=== PATIENT | male | born 1965 | race Caucasian/White ===

== ENCOUNTER 2016-12-17 12:30 | Inpatient (IN) ==
[2016-12-17] MEDS ORDERED: NS 1,000 ML IV ONE ×4 (12:36→18:32)
--- NOTE | 2016-12-17 12:49 | PROVIDER DOCUMENTATION ---
HPI-General Adult - General Chief Complaint: High Blood Sugar Stated Complaint: HIGH BLOOD SUGAR Time Seen by Provider: 12/17/16 12:33 Source: patient Allergies/Adverse Reactions: Patient Allergies Allergy/AdvReac Type Severity Reaction Status Date / Time No Known Allergies Allergy Verified 12/17/16 12:38 Home Medications: Home Medication List Medication Instructions Recorded Confirmed Last Taken Type Insulin Aspart [Novolog Flexpen] 10 unit SQ TID PC 11/05/15 12/17/16 07/18/16 History Tramadol [Ultram] 50 mg PO Q8HR #20 tablet 11/05/15 12/17/16 07/17/16 Rx Amoxicillin/Potassium Clav 1 each PO BID #12 tablet 07/20/16 12/17/16 Unknown Rx [Augmentin 875-125 Tablet] Insulin Glargine,Hum.rec.anlog 35 unit SQ DAILY #1 insuln.pen 07/20/16 12/17/16 Unknown Rx [Lantus Solostar] Metformin [Glucophage] 500 mg PO 4XDAY 12/17/16 12/17/16 Unknown History - History of Present Illness -Gen Adult Nature of Presenting Problems: CC: "I just feel weird". pt presents complaining of hyperglycemia. Reportedly he took his glucose this morning and it was in the 300s however it read high later on in the day. He endorses good insulin compliance. He denies cough, headache, chest pain, dyspnea, back pain, dysuria, fever. Location of Pain/Injury: reports: none Quality of Pain: reports: none Onset/Duration: reports: 24 hours ago Timing: reports: still present Context/Activities at Onset: reports: none Modifying Factors: improves with: nothing Associated Symptoms: reports: denies symptoms Similar Symptoms Previously?: No Recently seen or treated by another doctor?: No Review of Systems - Adult - REVIEW OF SYSTEMS - ADULT Constitutional: reports: majo. denies: chills, fever Eyes: reports: no symptoms reported. denies: decreased vision, blurred vision Ears, Nose, Mouth & Throat: reports: no symptoms reported. denies: ear pain, epistaxis Cardiovascular: reports: no symptoms reported. denies: chest pain, heart murmur Respiratory: reports: no symptoms reported. denies: cough Gastrointestinal: reports: no symptoms reported Genitourinary: reports: no symptoms reported Musculoskeletal: reports: no symptoms reported Integumentary: reports: no symptoms reported Neurological: reports: no symptoms reported. denies: ataxia, loss of balance Psychiatric: reports: no symptoms reported Endocrine: reports: no symptoms reported. denies: change in skin pigment, cold intolerance Hematologic/Lymphatic: reports: no symptoms reported. denies: blood clots Allergic/Immunologic: reports: no symptoms reported. denies: urticaria All Other Systems: Reviewed and Negative Past History - Adult - PAST MEDICAL HISTORY-ADULT Review of Records: reports: Old Records Reviewed, Nursing Assessment Review, Medications Reviewed, Social history reviewed & non-contributory. Major Childhood Illnesses: reports: denies history Cardiovascular: reports: denies history Respiratory: reports: denies history Gastrointestinal: reports: denies history Obstetrical/Gynecological: reports: denies history Genitourinary: reports: denies history Musculoskeletal: reports: chronic pain Neurological: reports: denies history Psychiatric: reports: anxiety Endocrine/Immune: reports: Diabetes Other Conditions: reports: denies history - PRIOR SURGERIES/PROCEDURES Surgical/Procedure History: reports: other (prostate) - IMMUNIZATION STATUS Childhood Immunizations: See Nurse Assessment Flu Vaccine: See Nurse Assessment - FAMILY HISTORY Family History: reviewed, not pertinent Physical Exam-General - PHYSICAL EXAM-ADULT Initial Vital Signs Reviewed: Yes - CONSTITUTIONAL General Appearance: appears well, alert, no apparent distress - EYES Eyes: PERRL/EOMI, anisocoria - HEAD, EARS, NOSE, MOUTH & THROAT HENMT: normocephalic/atraumatic, moist mucous membranes, normal ENT inspection - NECK Neck: non-tender, full range of motion, supple - RESPIRATORY Respiratory: chest non-tender, lungs clear, normal breath sounds - CARDIOVASCULAR Cardiovascular: normal peripheral pulses, regular rate, rhythm - GASTROINTESTINAL (ABDOMEN) Abdominal Exam: normal bowel sounds, non tender, soft, no organomegaly - LYMPHATIC Lymphatic: no adenopathy, axilla node tender - MUSCULOSKELETAL Back Exam: normal inspection, no CVA tenderness, no vertebral tenderness Extremity: normal range of motion, non-tender - SKIN Integumentary: normal color, normal turgor, warm/dry - NEUROLOGIC Neurologic: 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, grossly normal, no motor/sensory deficits - PSYCHIATRIC Psych/Mental Status: normal mood/affect, normal thought content, oriented x 3 Progress - PLAN OF CARE/RESULTS Progress/Plan/Lab Results: Vital Signs - 8 hr 12/17/16 12:32 Temperature 98.0 F Pulse Rate 81 Respiratory Rate 24 Blood Pressure 126/068 Orders Category Date Time Status Cardiac Monitoring DIRECTED Care 12/17/16 12:37 Active Saline Loc NOW Care 12/17/16 12:37 Active ABG [RESP] Routine Lab 12/17/16 12:47 Ordered CBC WITH ELECTRONIC DIFF [HEME] Stat Lab 12/17/16 12:37 Ordered CK PROFILE [SP CHEM] Stat Lab 12/17/16 12:37 Ordered COMPREHENSIVE METABOLIC PANEL [CHEM] Stat Lab 12/17/16 12:37 Ordered MAGNESIUM [CHEM] Stat Lab 12/17/16 12:37 Ordered PROTIME WITH INR PL [COAG] Stat Lab 12/17/16 12:[address] [COAG] Stat Lab 12/17/16 12:37 Ordered TROPONIN T Stat Lab 12/17/16 12:37 Ordered UA NIMS W/REFLEX CULT [URINALYSIS] Stat Lab 12/17/16 12:36 Uncollected 0.9% Sodium Chloride Inj [Ns] 1,000 ml Med 12/17/16 12:36 Active IV 999 mls/hr EKG [EKG] Stat Ther 12/17/16 12:37 Ordered Result Diagrams: 12/17/16 12:55 12/17/16 12:55 - XRAY 1 XRAY Study: Chest Impression: Normal, See EMR Report - CONSULTS/PCP/HOSPITALIST Notification #1 *Consult/PCP/Hospitalist*: viktor Time Discussed: 15:15 Consult Disposition: Admit Departure - Departure Date of Disposition Decision: 12/17/16 Time of Disposition Decision: 15:05 DIAGNOSIS: Hyperglycemia, Hypernatremia UTI (urinary tract infection) Qualifiers: Urinary tract infection type: site unspecified Hematuria presence: with hematuria Qualified Code(s): N39.0 - Urinary tract infection, site not specified Disposition: ADMITTED INPATIENT 09 Certified Medical Emergency: Emergent Condition: Fair Referrals and Follow-Ups: None,PCP [Primary Care Provider] - - Critical Care Note This patient required my direct & personal management of CC.: Yes Total Time (mins): 30 Critical Care Statement: This patient required my direct personal management to treat or rule out processes, the absence of which, could potentiallly result in sudden, clinically significant life or limb threatening deterioration. Attestation - Physician/ PAULA Attestation Patient care was provided by Advanced Practice Provider:: Yes Advanced Practice Provider:: David Agustin Advanced Practice Provider documentation review:: The Mid-level provider documentation, treatment plan and medical decision making was reviewed by the physician who agrees with all treatment and medical decision making by the MLP.
[2016-12-17 13:04] LABS: BLOOD TYPE ARTERIAL; DRAW SITE R BRACHIAL; METHB 1.4 % (0.0-1.5); O2(CT) 13.5 mL/dL (15.0-23.0); PCO2(98.6) 25 mmHg (35-45); PO2(98.6) 83 mmHg (60-100); SAMPLE BLOOD; SAO2 98.5 % (95.0-100.0); THB 10.1 g/dL (11.5-17.4); pH(98.6) 7.42 (7.35-7.45)
[2016-12-17 13:05] LABS: MANUAL DIFF NEEDED? NO
[2016-12-17 13:06] LABS: ALLEN TEST NO; MODALITY ROOM AIR
[2016-12-17 13:10] LABS: BASO% 0.5 % (0.0-0.8); EOS# 0.01 X1000 (0.0-0.7); EOS% 0.2 % (0.0-10.0); HEMATOCRIT 31.6 % (42.0-52.0); HEMOGLOBIN 9.4 g/dL (14.0-18.0); IMM GRAN# 0.02 X1000 (0.0-0.04); IMM GRAN% 0.4 % (0.0-0.5); LYMPH# 0.41 X1000 (1.2-3.4); LYMPH% 7.5 % (20.5-51.1); MCH 26.9 PG (27-31); MCHC 29.7 g/dL (33-37); MCV 90.5 FL (81-99); MONO# 0.38 X1000 (0.11-0.59); MPV 9.7 FL (7.4-10.4); NEUT% 84.4 % (42.2-75.2); PLT 340 X1000 (130-400); RBC 3.49 XMIL (4.7-6.1)
[2016-12-17 13:40] LABS: INR 1.11 (0.86-1.15); PROTIME 14.6 Seconds (12.1-15.5)
[2016-12-17 13:41] LABS: PTT PL 35.5 Seconds (22.6-43.9)
[2016-12-17 13:54] LABS: BILIRUBIN URINE NEGATIVE (NEGATIVE); BLOOD URINE 4+ (NEGATIVE); COLOR YELLOW; LEUKOCYTES URINE 2+ (NEGATIVE); NITRITE URINE NEGATIVE (NEGATIVE); PH URINE 6.5; PROTEIN URINE 1+(30 mg/dL) mg/dL (NEGATIVE); UROBILINOGEN URINE NORMAL
[2016-12-17 14:20] LABS: URINE WBC TNTC /HPF (<10)
[2016-12-17 14:21] LABS: URINE CAST NONE SEEN /LPF; URINE CRYSTAL NONE SEEN /HPF; URINE CULTURE PL NEEDED? YES; URINE EPITHELIAL CELLS <10 /HPF (<10); URINE SOURCE CLEAN CATCH
[2016-12-17 14:25] LABS: AGAP 18; BUN 44 mg/dL (8-22); CHLORIDE 72 mmol/L (98-107); COSMO 280; POTASSIUM 5.8 mmol/L (3.5-5.1); TCO2 13 mmol/L (25-35)
[2016-12-17 14:26] LABS: ALBUMIN 3.2 g/dL (3.5-5.0); ALKALINE PHOSPHATASE 101 U/L (32-122); CK PROFILE 51 U/L (24-204); GOT 9 U/L (10-34); GPT 6 U/L (10-44); TOTAL PROTEIN 7.2 g/dL (6.3-8.3)
[2016-12-17 14:28] LABS: SODIUM 103 mmol/L (136-145)
[2016-12-17] MEDS ORDERED: ROCEPHIN 1 GM/NS 1 GM/50 ML IVPB IV ONE (14:36)
[2016-12-17] MEDS ORDERED: HUMULIN R (PARKWAY) IV ONE (14:37)
--- NOTE | 2016-12-17 14:40 | EKG Report ---
Test Performed on : 12/17/2016 12:56:12 PM Test Reason : CHEST PAIN Blood Pressure : / mmHG Vent. Rate : 073 BPM Atrial Rate : 073 BPM P-R Int : 160 ms QRS Dur : 078 ms QT Int : 402 ms P-R-T Axes : -13 -01 037 degrees QTc Int : 442 ms Normal sinus rhythm. Normal ECG When compared with ECG of 18-JUL-2016 20:31, Nonspecific T wave abnormality no longer evident in Lateral leads Unconfirmed Result
[2016-12-17] MEDS ORDERED: HUMULIN R (PARKWAY) 100 UNITS in NS 100 ML IV SCH (14:45)
--- NOTE | 2016-12-17 14:48 | Diag Imaging Result Doc PS360 ---
EXAM: CHEST-2 VIEWS HISTORY: weakness TECHNIQUE: COMPARISON: 10/06/2010 FINDINGS: The lungs are well expanded. The heart is not enlarged. The vessels are not distended. There are no infiltrates. No pleural effusions. IMPRESSION: No acute abnormality although the patient may have emphysema. Electronically signed by Davy Suarez 12/17/2016 2:46 PM
[2016-12-17 15:47] LABS: CLARITY SLIGHTLY CLOUDY (CLEAR)
--- NOTE | 2016-12-17 16:05 | ED EKG INTERP ---
This chart was entered by Donna Silveira Scribe, acting as scribe for Amy Fernández MD. EKG Interpretation - EKG Time of EKG reading by physician:: 12:56 EKG Read and Signed by:: Amy Fernández EKG Interpretation (*Must complete 3 of following elements*): Normal Rate: 73 Rhythm: NORMALSINUS RHYTHM Comments: NORMAL ECG This chart was documented by the indicated scribe, (Donna Silveira Scribe) and accurately reflects the services I performed and decisions made by me, Amy Fernández MD, as attested by the provider's signature.
[2016-12-17 17:42] LABS: CALCIUM 9.3 mg/dL (8.8-10.2); MAGNESIUM 2.6 mg/dL (1.5-2.7); POTASSIUM 4.3 mmol/L (3.5-5.1)
[2016-12-17] MEDS ORDERED: MISC. PHARMACY COMMUNICATION SCH (18:00)
[2016-12-17 19:16] LABS: HEMOGLOBIN A1C > 8.8 % (4.8-6.0)
[2016-12-17 19:17] LABS: EST AVG GLUCOSE > 205 mg/dL
[2016-12-17 19:35] LABS: CALCIUM 9.1 mg/dL (8.8-10.2); POTASSIUM 3.8 mmol/L (3.5-5.1)
[2016-12-17] MEDS: NS 1,000 ML IV SCH (20:00)
[2016-12-17 21:18] LABS: CALCIUM 8.7 mg/dL (8.8-10.2); MAGNESIUM 2.2 mg/dL (1.5-2.7); POTASSIUM 4.1 mmol/L (3.5-5.1)
[2016-12-18 03:23] LABS: CALCIUM 8.7 mg/dL (8.8-10.2); MAGNESIUM 2.1 mg/dL (1.5-2.7); POTASSIUM 4.2 mmol/L (3.5-5.1)
[2016-12-18] MEDS: NS 1,000 ML IV SCH ×4 (04:00→21:25)
[2016-12-18 05:49] LABS: CALCIUM 8.7 mg/dL (8.8-10.2); POTASSIUM 4.6 mmol/L (3.5-5.1)
--- NOTE | 2016-12-18 09:12 | PROGRESS NOTE ---
DATE: 12/18/2016 SUBJECTIVE: Patient notes that he is feeling much better. He denies any chest pain or palpitations. Denies any fevers, chills. Denies any GI or issues. States that he is ready to start eating. Notes that he does not typically take care of himself when he is driving. PHYSICAL EXAMINATION: Vital Signs: Temperature 97.9, pulse 75, respiratory rate 19, BP 116/77, saturation 100% on room air. General: Patient is awake, alert, currently in no respiratory distress. Pleasant to talk with. Speech is regular. Memory is intact. He is lying in bed, watching TV. HEENT: Normocephalic, atraumatic. Neck: Supple. CV: Regular rate. Chest: Relatively clear. Abdomen: Soft. Extremities: Moves all extremities. Neurologic: No focal changes. Skin: Warm and dry. No rashes. LABS: Glucose 516. Otherwise CBC is pending. Creatinine has improved down to 1.4, bicarbonate is 20. ASSESSMENT: Hyperosmolar hyperglycemia without coma. The patient is thankfully continuing to improve. His glucose on admission was markedly elevated at greater than 1200 and has slowly come down. He actually dropped down to 387 yesterday several hours after his last insulin dose only with intravenous fluids. He is continuing to improve. At this point, he is awake, alert, oriented. We will begin tighter control of his blood sugar as he has been 500 or below for the past several hours. We will change to patterned Accu-Cheks. We will start sliding scale insulin. Currently, he is nonketotic. We will advance his diet as tolerated and hopefully home in the morning. Did discuss with patient the importance of glucose control at home. cc: Marcel Ford MD
[2016-12-18] MEDS: HUMALOG DOSE (PARKWAY) SUBQ SCH ×3 (11:02→20:11)
[2016-12-18] MEDS ORDERED: LANTUS INSULIN (PARKWAY) SUBQ ONE (13:20)
[2016-12-18] MEDS: ROCEPHIN 1 GM/NS 1 GM/50 ML IVPB IV SCH (15:35)
[2016-12-18] MEDS ORDERED: GLUCOPHAGE PO SCH (21:00)
[2016-12-18] MEDS ORDERED: LANTUS SUBQ SCH (21:00)
[2016-12-19] MEDS: NS 1,000 ML IV SCH (04:11)
[2016-12-19 06:25] LABS: HEMATOCRIT 28.7 % (42.0-52.0); HEMOGLOBIN 9.3 g/dL (14.0-18.0); MCH 26.3 PG (27-31); MCHC 32.4 g/dL (33-37); MCV 81.3 FL (81-99); MPV 9.5 FL (7.4-10.4); RBC 3.53 XMIL (4.7-6.1)
[2016-12-19] MEDS: HUMALOG DOSE (PARKWAY) SUBQ SCH ×4 (06:31→20:36)
[2016-12-19] MEDS ORDERED: LANTUS INSULIN (PARKWAY) SUBQ SCH (06:38)
[2016-12-19 06:47] LABS: AGAP 8; ALBUMIN 2.6 g/dL (3.5-5.0); ALKALINE PHOSPHATASE 84 U/L (32-122); BUN 17 mg/dL (8-22); CALCIUM 8.5 mg/dL (8.8-10.2); CHLORIDE 109 mmol/L (98-107); COSMO 274; GOT 7 U/L (10-34); GPT 5 U/L (10-44); HDL 31 mg/dL (35-55); LDL 75 mg/dL; MAGNESIUM 1.6 mg/dL (1.5-2.7); POTASSIUM 3.2 mmol/L (3.5-5.1); SODIUM 137 mmol/L (136-145); TCO2 21 mmol/L (25-35); TOTAL PROTEIN 6.4 g/dL (6.3-8.3); TRIGLYCERIDES 132 mg/dL (39-160); VLDL 26 mg/dL
[2016-12-19] MEDS: GLUCOPHAGE PO SCH ×4 (08:35→20:04)
[2016-12-19] MEDS ORDERED: ULTRAM PO PRN (08:52)
[2016-12-19] MEDS ORDERED: LANTUS SUBQ SCH (09:00)
[2016-12-19] MEDS: LANTUS INSULIN (PARKWAY) SUBQ SCH (10:54)
--- NOTE | 2016-12-19 11:03 | PROGRESS NOTE ---
DATE: 12/19/2016 SUBJECTIVE: The patient notes that he is feeling much better. He denies any chest pains or palpitations. He denies any GI or issues currently. OBJECTIVE: Vital signs: Vital signs were reviewed and are stable. General: He is awake, alert, oriented, and in no distress. Neck: Supple. CV: Regular rate. Chest: Relatively clear. Abdomen: Soft. Extremities: He moves all extremities. Neurological: No focal changes. Skin: Warm and dry. No rashes. ASSESSMENT: 1. Hyperosmolar hyperglycemia without coma, resolved. 2. Diabetes with hyperglycemia, improved. 3. Acute renal failure secondary to hyperosmolar, resolved. PLAN: We will restart the patient's home medication. We will transfer him to the floor. We allow him to eat a regular diet today and if his blood sugars stay stable we will discharge home in the a.m. cc: Marcel Ford MD
--- NOTE | 2016-12-19 15:10 | HISTORY AND PHYSICAL ---
This is a delayed dictation for 12/17/2016. CHIEF COMPLAINT: "I feel weird." HISTORY OF PRESENT ILLNESS: This is a 51-year-old gentleman with a history of insulin-dependent diabetes who presented to the emergency room stating that he felt weird and that he was having hyperglycemia. He states that his blood sugar was in the 300s on arising this morning, but it read high later in the day. Initial blood glucose in the ER was 519. That was at midnight. At noon the next day, it was greater than 1200, per lab. He was found to be in HHNK and admitted to ICU for further treatment. PAST MEDICAL HISTORY: 1. Benign prostatic hypertrophy. 2. Insulin-dependent diabetes. PAST SURGICAL HISTORY: Cystoscopy. SOCIAL HISTORY: He denies alcohol, tobacco, or illicit drug use. ALLERGIES: No known drug allergies. HOME MEDICATIONS: Humalog 100 units a.c. and at bedtime, Ultram 50 q.8 hours p.r.n., Glucophage 500 four times a day, NovoLog FlexPen 10 units 3 times a day, Lantus 35 units daily, and Augmentin b.i.d. REVIEW OF SYSTEMS: A 14-point review of systems is discussed with the patient, with pertinent positives as stated in the HPI. He denied chest pain, palpitations, shortness of breath, cough, fever, chills, nausea, vomiting, diarrhea, constipation, black or bloody vomitus , black or bloody stools, hematuria, dysuria, frequency, or urgency. PHYSICAL EXAMINATION: GENERAL: This is a 51-year-old male who is lying in the bed in no distress. VITAL SIGNS: Blood pressure is 116/77 with a heart rate of 75. Respirations are 18. Temperature is 97.9 degrees oral with room air saturations of 98% to 100%. HEENT: Head is normocephalic, atraumatic. Pupils equal, round, react to light. EOMs are intact. Sclerae anicteric. Mucous membranes are dry. NECK: Supple. Trachea midline. CARDIOVASCULAR: Regular rate and rhythm. S1 and S2 appreciated. PULMONARY: Breath sounds are clear. No increased work of breathing noted. GASTROINTESTINAL: Abdomen is soft, nontender, nondistended. Bowel sounds in all 4 quadrants. BACK: No CVAT. No spine tenderness. MUSCULOSKELETAL: Good range of motion of joints. NEUROLOGIC: He is alert and oriented x3, with cranial nerves 2-12 grossly intact. EXTREMITIES: No clubbing, cyanosis, or edema. Calves are nontender. Pulses are palpable x4. DIAGNOSTICS: Sodium is 103, potassium 5.8, BUN 44, creatinine 1.8, with a glucose greater than 1200. Total bilirubin is 1.30. WBC is 5.46, with hemoglobin 9.4 and hematocrit 31.6. He is acetone negative. ASSESSMENT: Hyperosmolar hyperglycemia without coma. PLAN: The patient will be admitted to ICU. He will be placed on an insulin drip and we will keep his blood sugar above 800 for the first 8 hours, checking blood sugars every hour. After this, for the next 10-12 hours we will not let his blood sugar get below 500 and insulin drip can be titrated for such. We will re-evaluate in the morning. He is not ketotic. We will advance diet as tolerated. Further treatments pending hospital course. Dictated by MONIE Ortez for Marcel Ford MD cc: MONIE Ortez MD [facility]
[2016-12-19] MEDS: ROCEPHIN 1 GM/NS 1 GM/50 ML IVPB IV SCH (16:30)
[2016-12-20] MEDS: HUMALOG DOSE (PARKWAY) SUBQ SCH ×4 (06:29→21:37)
[2016-12-20] MEDS: GLUCOPHAGE PO SCH ×4 (07:48→21:37)
[2016-12-20] MEDS ORDERED: LEVAQUIN PO SCH (09:30)
[2016-12-20] MEDS: LANTUS INSULIN (PARKWAY) SUBQ SCH (09:40)
[2016-12-20 20:47] VITALS: BP 141/86
--- NOTE | 2016-12-21 07:40 | DISCHARGE SUMMARY ---
ADMISSION DATE: 12/17/2016 DISCHARGE DATE: 12/20/2016 DIAGNOSES: 1. Hyperosmolar hyperglycemia without coma, resolved. 2. Diabetes with hyperglycemia, improved. 3. Acute renal failure secondary to hyperosmolarity, resolved. 4. Urinary tract infection, Enterobacter cloacae species. DIAGNOSTICS: On 12/17/2016, chest x-ray revealed no acute abnormality. HOSPITAL COURSE: Mr. Santana presented to the emergency room complaining of feeling weird. He was found to be HHNK with a blood sugar of greater than 1200 per lab. He was started on an insulin drip. Sent to ICU. We did monitor his blood sugars hourly and titrated the drip to keep his blood sugar above 800 for the 1st 8 hours. For the next 10-12 hours, we did not let his blood sugar get below 500. He did tolerate this well, getting off his insulin drip, being transitioned back over to his home medications, having blood sugars in the 200-270 range. He was noted to have an Enterobacter urinary tract infection for which he has been started on Levaquin. DISCHARGE PHYSICAL EXAMINATION: Cardiovascular: Regular rate and rhythm. S1 and S2 are appreciated. Pulmonary: Breath sounds clear with no increased work of breathing noted. Gastrointestinal: Abdomen is soft, nontender, nondistended with bowel sounds in all 4 quadrants. Neurologic: He is alert and oriented with cranial nerves 2-12 grossly intact. DISCHARGE MEDICATIONS: 1. Humalog 100 units a.c. and at bedtime. 2. Ultram 50 mg q.8 hours. 3. Glucophage 500 mg 4 times a day. 4. Lantus insulin 35 units daily. 5. Levaquin 500 mg p.o. daily for 7 days. DISCHARGE FOLLOWUP: He needs to follow up with his primary care provider, Dr. Teran, within the next week. DISCHARGE VITAL SIGNS: Blood pressure is 131/82, with a heart rate of 69, respirations are 18, temperature is 98.5 degrees oral, with a room air saturations of 99%. DISPOSITION: He is being discharged home in stable condition with family members. TIME SPENT: This is a greater than 30 minute discharge. Dictated by MONIE Ortez for Marcel Ford MD cc: MONIE Ortez MD
== END 2016-12-20 23:40 | disposition home or self-care (01) ==
LOC: P.ED 12:30 → P.EDIPHOLD 15:41 → P.ICU 16:37 → P.MEDSURG 12-19 12:36
PROVIDERS: ATTEND Family Medicine

== ENCOUNTER 2018-07-08 13:32 | Inpatient (IN) ==
[2018-07-08] MEDS ORDERED: HUMULIN R IV ONE ×3 (13:35→20:25)
[2018-07-08] MEDS ORDERED: NS 1,000 ML IV ONE ×2 (13:36→23:54)
[2018-07-08 14:10] LABS: URINE SOURCE CLEAN CATCH
[2018-07-08 14:13] LABS: BILIRUBIN URINE NEGATIVE (NEGATIVE); BLOOD URINE LARGE (NEGATIVE); COLOR ORANGE; GLUCOSE URINE >1000 mg/dL (NEGATIVE); KETONE URINE 100 mg/dL (NEGATIVE); LEUKOCYTES URINE LARGE (NEGATIVE); NITRITE URINE NEGATIVE (NEGATIVE); PH URINE 5.5; PROTEIN URINE 200 mg/dL (NEGATIVE); SP GRAVITY URINE 1.014; TURBIDITY URINE TURBID (CLEAR); UROBILINOGEN URINE NORMAL (NORMAL)
[2018-07-08 14:14] LABS: UR EPITHELIAL CELLS <10 /HPF (<10); URINE BACTERIA NEGATIVE /HPF; URINE RBC TNTC /HPF (<10); URINE WBC TNTC /HPF (<10)
[2018-07-08 14:14] LABS: BASO# 0.05 X1000 (0.0-0.2); BASO% 0.2 % (0.0-0.8); EOS# 0.01 X1000 (0.0-0.7); HEMATOCRIT 37.6 % (42.0-52.0); HEMOGLOBIN 10.7 g/dL (14.0-18.0); LYMPH# 0.79 X1000 (1.2-3.4); LYMPH% 3.2 % (20.5-51.1); MCH 27.9 PG (27-31); MCHC 28.5 g/dL (33-37); MCV 97.9 FL (81-99); MONO# 2.09 X1000 (0.11-0.59); MONO% 8.4 % (1.7-9.3); MPV 10.3 FL (7.4-10.4); NEUT# 21.95 X1000 (1.4-6.5); NEUT% 88.2 % (42.2-75.2); PLT 516 X1000 (130-400); RBC 3.84 XMIL (4.7-6.1); RDW 13.3 % (11.5-14.5); WBC 24.89 X1000 (4.8-10.8)
[2018-07-08 14:17] LABS: URINE CASTS NONE SEEN; URINE YEAST PRESENT
[2018-07-08] MEDS ORDERED: VANCOMYCIN 1 GM/NS 1 GM/250 ML IVPB IV ONE (14:20)
[2018-07-08] MEDS ORDERED: ROCEPHIN 1 GM in NS 50 ML IV ONE (14:20)
[2018-07-08] MEDS ORDERED: DIFLUCAN 400 MG/NS 400 MG/200 ML IVPB IV ONE (14:24)
[2018-07-08 14:32] LABS: UR AMPHETAMINES QUAL NONE DETECTED (NONE DETECT); UR BARBITUATES QUAL NONE DETECTED (NONE DETECT); UR BENZODIAZEPIN QUAL NONE DETECTED (NONE DETECT); UR CANNABINOIDS QUAL NONE DETECTED (NONE DETECT); UR COCAINE QUAL NONE DETECTED (NONE DETECT); UR METHADONE QUAL NONE DETECTED (NONE DETECT); UR OPIATES QUAL NONE DETECTED (NONE DETECT); UR OXYCODONE QUAL NONE DETECTED (NONE DETECT); UR PCP QUAL NONE DETECTED (NONE DETECT)
[2018-07-08 14:52] LABS: AGAP 39; ALBUMIN 3.7 g/dL (3.5-5.0); ALKALINE PHOSPHATASE 140 U/L (32-122); BUN 43 mg/dL (8-22); CHLORIDE 87 mmol/L (98-107); CK TOTAL 60 U/L (24-204); COSMO 314; CREATININE 3.3 mg/dL (0.7-1.2); ESTIMATED GFR 20; GLUCOSE 887 mg/dL (70-104); GOT 12 U/L (10-34); GPT 11 U/L (10-44); LIPASE 9 U/L (13-60); MAGNESIUM 2.4 mg/dL (1.5-2.7); SODIUM 130 mmol/L (136-145); TCO2 4 mmol/L (25-35); TOTAL BILIRUBIN < 0.15 mg/dL (0.20-1.00); TOTAL PROTEIN 7.3 g/dL (6.3-8.3)
[2018-07-08 14:56] LABS: POTASSIUM 7.4 mmol/L (3.5-5.1)
[2018-07-08 15:00] LABS: ALLEN TEST NO; BLOOD TYPE ARTERIAL; O2(CT) 15.8 mL/dL (15.0-23.0); O2HB 96.8 % (95.0-99.0); PO2(98.6) 143 mmHg (60-100); SAMPLE BLOOD; SAO2 99.5 % (95.0-100.0); THB 11.4 g/dL (11.5-17.4)
[2018-07-08] MEDS ORDERED: HUMULIN R 100 UNIT in NS 100 ML IV SCH (15:00)
[2018-07-08 15:02] LABS: HCO3-(ACT) 2.3 mmoll (20.0-26.0); MODALITY CANNULA; PCO2(98.6) 10 mmHg (35-45); pH(98.6) 6.91 (7.35-7.45)
[2018-07-08] MEDS ORDERED: KAYEXALATE PO ONE (15:03)
[2018-07-08] MEDS ORDERED: LASIX IV ONE (15:03)
[2018-07-08] MEDS ORDERED: CALCIUM CHLORIDE 1 GM in NS 100 ML IV ONE (15:03)
[2018-07-08] MEDS ORDERED: SODIUM BICARBONATE 8.4% IV PUSH ONE (15:03)
[2018-07-08 15:04] LABS: ACETONE SERUM MODERATE (NEGATIVE)
[2018-07-08] MEDS ORDERED: ALBUTEROL NEB INH ONE (15:05)
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
[2018-07-08] MEDS ORDERED: ROCEPHIN ONE (15:20)
[2018-07-08] MEDS ORDERED: KAYEXALATE ONE (15:23)
--- NOTE | 2018-07-08 15:23 | ED EKG INTERP ---
EKG Interpretation - EKG Time of EKG reading by physician:: 15:22 EKG Read and Signed by:: Luis Marques EKG Interpretation (*Must complete 3 of following elements*): Abnormal Rate: 107 Rhythm: nsr Colp: normal QRS: LVH, other (peak t waves) ME Interval: normal ST Wave: non-specific ST changes Attestation - Physician/ PAULA Attestation Patient care was provided by Advanced Practice Provider:: No The physician spent face to face time with patient:: Yes Advanced Practice Provider documentation review:: Supervising physician onsite and consulted in the evaluation and care of this patient. The physician did have a face to face encounter with the patient.
[2018-07-08] MEDS ORDERED: NS 1,000 ML IV SCH ×3 (15:30→15:53)
[2018-07-08] MEDS ORDERED: ALBUTEROL 0.5% INH CONC FOR HYPERKALEMIA ONE (15:32)
[2018-07-08] MEDS ORDERED: ALBUTEROL 0.5% INH CONC FOR HYPERKALEMIA INH ONE (15:40)
[2018-07-08] MEDS ORDERED: ZOFRAN IV PRN ×2 (15:53→17:17)
[2018-07-08] MEDS ORDERED: HUMULIN R 100 UNIT in NS 99 ML IV SCH (15:53)
[2018-07-08] MEDS ORDERED: SODIUM PHOSPHATE 30 MMOL in D5W 250 ML IV PRN ×2 (15:53→17:17)
[2018-07-08] MEDS ORDERED: POTASSIUM CHLORIDE 40 MEQ/SWI 40 MEQ/100 ML IVPB IV PRN ×2 (15:53→17:17)
[2018-07-08] MEDS ORDERED: SODIUM BICARBONATE 8.4% 100 MEQ in D5W 500 ML IV PRN ×2 (15:53→17:17)
[2018-07-08] MEDS ORDERED: TYLENOL PR PRN ×2 (15:53→17:17)
[2018-07-08] MEDS ORDERED: POTASSIUM CHLORIDE 20 MEQ/SWI 20 MEQ/100 ML IVPB IV PRN ×2 (15:53→17:17)
[2018-07-08] MEDS ORDERED: D5 NS 1,000 ML IV SCH (15:53)
[2018-07-08] MEDS ORDERED: SODIUM BICARBONATE 8.4% 50 MEQ in D5W 250 ML IV PRN ×2 (15:53→17:17)
[2018-07-08] MEDS ORDERED: POTASSIUM CHLORIDE 20% LIQUID PO PRN ×2 (15:53→17:17)
[2018-07-08] MEDS ORDERED: POTASSIUM CHLORIDE 10% LIQUID PO PRN (15:53)
[2018-07-08] MEDS ORDERED: TYLENOL PO PRN ×2 (15:53→17:17)
[2018-07-08] MEDS ORDERED: MAGNESIUM SULFATE 2 GM/S.W.I. 2 GM/50 ML IVPB IV PRN ×2 (15:53→17:17)
[2018-07-08] MEDS ORDERED: D50W SYRINGE IV PRN ×2 (15:53→17:17)
[2018-07-08] MEDS ORDERED: COMPAZINE IV PRN ×2 (15:53→17:17)
--- NOTE | 2018-07-08 15:54 | EKG Report ---
Test Performed on : 07/08/2018 3:05:39 PM Test Reason : hyperglycemia Blood Pressure : / mmHG Vent. Rate : 107 BPM Atrial Rate : 107 BPM P-R Int : 152 ms QRS Dur : 108 ms QT Int : 360 ms P-R-T Axes : 054 -29 050 degrees QTc Int : 480 ms Sinus tachycardia. Otherwise normal ECG When compared with ECG of 17-DEC-2016 12:56, QRS duration has increased Unconfirmed Result
[2018-07-08 16:25] LABS: ALLEN TEST NO; BE -28.6 mmoll (-3.0-3.0); BLOOD TYPE ARTERIAL; METHB 1.3 % (0.0-1.5); O2(CT) 13.4 mL/dL (15.0-23.0); O2HB 96.6 % (95.0-99.0); PO2(98.6) 128 mmHg (60-100); SAMPLE BLOOD; SAO2 99.5 % (95.0-100.0); THB 9.7 g/dL (11.5-17.4)
[2018-07-08 16:28] LABS: HCO3-(ACT) 2.6 mmoll (20.0-26.0); MODALITY CANNULA; PCO2(98.6) 10 mmHg (35-45); pH(98.6) 6.92 (7.35-7.45)
[2018-07-08] MEDS: NS 1,000 ML IV SCH ×4 (17:36→19:43)
[2018-07-08 18:12] LABS: HEMOGLOBIN A1C 13.2 % (4.8-6.0)
[2018-07-08] MEDS: D5 NS 1,000 ML IV SCH (18:16)
[2018-07-08 18:25] LABS: ALLEN TEST YES; BE -21.9 mmoll (-3.0-3.0); BLOOD TYPE ARTERIAL; HCO3-(ACT) 7.9 mmoll (20.0-26.0); METHB 1.1 % (0.0-1.5); O2(CT) 12.9 mL/dL (15.0-23.0); O2HB 96.8 % (95.0-99.0); PO2(98.6) 126 mmHg (60-100); SAMPLE BLOOD; SAO2 99.4 % (95.0-100.0); THB 9.3 g/dL (11.5-17.4)
[2018-07-08 18:28] LABS: PCO2(98.6) 14 mmHg (35-45); pH(98.6) 7.15 (7.35-7.45)
[2018-07-08 18:29] LABS: MODALITY ROOM AIR
[2018-07-08 19:22] LABS: AGAP 36; AMYLASE 243 U/L (20-200); BUN 46 mg/dL (8-22); CALCIUM 8.7 mg/dL (8.8-10.2); CHLORIDE 91 mmol/L (98-107); CK TOTAL 73 U/L (24-204); COSMO 323; CREATININE 3.2 mg/dL (0.7-1.2); ESTIMATED GFR 20; LIPASE 10 U/L (13-60); MAGNESIUM 2.3 mg/dL (1.5-2.7); PHOSPHORUS 8.3 mg/dL (2.7-4.5); POTASSIUM 5.1 mmol/L (3.5-5.1); SODIUM 132 mmol/L (136-145); TCO2 5 mmol/L (25-35)
[2018-07-08 19:25] LABS: GLUCOSE 930 mg/dL (70-104)
[2018-07-08 19:30] LABS: ACETONE SERUM MODERATE (NEGATIVE)
[2018-07-08] MEDS: HUMULIN R 100 UNIT in NS 99 ML IV SCH (19:43)
[2018-07-08] MEDS: PRILOSEC PO SCH (20:49)
[2018-07-08 21:37] LABS: ALLEN TEST YES; BE -13.8 mmoll (-3.0-3.0); BLOOD TYPE ARTERIAL; HCO3-(ACT) 14.1 mmoll (20.0-26.0); METHB 1.5 % (0.0-1.5); O2(CT) 14.2 mL/dL (15.0-23.0); O2HB 95.5 % (95.0-99.0); PCO2(98.6) 23 mmHg (35-45); PO2(98.6) 93 mmHg (60-100); SAMPLE BLOOD; SAO2 98.3 % (95.0-100.0); THB 10.5 g/dL (11.5-17.4); pH(98.6) 7.29 (7.35-7.45)
[2018-07-08 21:41] LABS: MODALITY ROOM AIR
[2018-07-08 23:23] LABS: CALCIUM 7.8 mg/dL (8.8-10.2); CREATININE 2.8 mg/dL (0.7-1.2); MAGNESIUM 1.9 mg/dL (1.5-2.7); PHOSPHORUS 2.2 mg/dL (2.7-4.5); POTASSIUM 3.7 mmol/L (3.5-5.1)
[2018-07-09] MEDS: HUMULIN R 100 UNIT in NS 99 ML IV SCH ×2 (00:31→15:38)
[2018-07-09] MEDS: POTASSIUM CHLORIDE 10% LIQUID PO PRN ×5 (00:43→17:38)
[2018-07-09] MEDS: ZOFRAN IV PRN (00:44)
[2018-07-09 02:29] LABS: CALCIUM 7.9 mg/dL (8.8-10.2); CREATININE 2.3 mg/dL (0.7-1.2); MAGNESIUM 1.7 mg/dL (1.5-2.7); PHOSPHORUS 1.3 mg/dL (2.7-4.5); POTASSIUM 3.8 mmol/L (3.5-5.1)
[2018-07-09 04:03] LABS: ALLEN TEST YES; BE -6.7 mmoll (-3.0-3.0); BLOOD TYPE ARTERIAL; HCO3-(ACT) 19.7 mmoll (20.0-26.0); METHB 0.9 % (0.0-1.5); O2(CT) 12.4 mL/dL (15.0-23.0); O2HB 96.4 % (95.0-99.0); PCO2(98.6) 33 mmHg (35-45); PO2(98.6) 96 mmHg (60-100); SAMPLE BLOOD; SAO2 98.9 % (95.0-100.0); pH(98.6) 7.35 (7.35-7.45)
[2018-07-09 04:04] LABS: MODALITY ROOM AIR
[2018-07-09] MEDS: D5 NS 1,000 ML IV SCH ×3 (04:30→17:01)
[2018-07-09 06:20] LABS: ALLEN TEST YES; BE -7.6 mmoll (-3.0-3.0); BLOOD TYPE ARTERIAL; METHB 1.4 % (0.0-1.5); O2(CT) 13.5 mL/dL (15.0-23.0); O2HB 95.6 % (95.0-99.0); PCO2(98.6) 30 mmHg (35-45); PO2(98.6) 95 mmHg (60-100); SAMPLE BLOOD; SAO2 98.5 % (95.0-100.0); THB 9.9 g/dL (11.5-17.4); pH(98.6) 7.36 (7.35-7.45)
[2018-07-09 06:21] LABS: MODALITY ROOM AIR
[2018-07-09 07:02] LABS: BASO# 0.01 X1000 (0.0-0.2); BASO% 0.1 % (0.0-0.8); EOS# 0.04 X1000 (0.0-0.7); EOS% 0.5 % (0.0-10.0); HEMATOCRIT 24.8 % (42.0-52.0); LYMPH# 0.32 X1000 (1.2-3.4); MCH 27.1 PG (27-31); MCHC 32.3 g/dL (33-37); MCV 84.1 FL (81-99); MONO# 0.88 X1000 (0.11-0.59); MPV 9.4 FL (7.4-10.4); NEUT# 6.75 X1000 (1.4-6.5); NEUT% 84.4 % (42.2-75.2); PLT 234 X1000 (130-400); RBC 2.95 XMIL (4.7-6.1); RDW 12.1 % (11.5-14.5)
[2018-07-09 07:06] LABS: PTT 38.4 Seconds (22.3-41.8)
[2018-07-09 07:20] LABS: AGAP 12; ALB/GLOB RATIO 0.7; ALBUMIN 2.3 g/dL (3.5-5.0); ALKALINE PHOSPHATASE 84 U/L (32-122); BUN 39 mg/dL (8-22); CALCIUM 7.7 mg/dL (8.8-10.2); CHLORIDE 119 mmol/L (98-107); COSMO 309; CREATININE 2.2 mg/dL (0.7-1.2); ESTIMATED GFR 32; GLUCOSE 188 mg/dL (70-104); GOT 10 U/L (10-34); GPT 7 U/L (10-44); MAGNESIUM 1.7 mg/dL (1.5-2.7); PHOSPHORUS 2.7 mg/dL (2.7-4.5); POTASSIUM 4.3 mmol/L (3.5-5.1); SODIUM 148 mmol/L (136-145); TCO2 17 mmol/L (25-35); TOTAL BILIRUBIN < 0.15 mg/dL (0.20-1.00); TOTAL PROTEIN 5.6 g/dL (6.3-8.3)
--- NOTE | 2018-07-09 07:23 | EKG Report ---
Test Performed on : 07/09/2018 06:46:55 AM Test Reason : chest pain Blood Pressure : / mmHG Vent. Rate : 094 BPM Atrial Rate : 094 BPM P-R Int : 164 ms QRS Dur : 074 ms QT Int : 362 ms P-R-T Axes : 050 004 037 degrees QTc Int : 452 ms Normal sinus rhythm. Normal ECG When compared with ECG of 08-JUL-2018 15:05, (Unconfirmed) Questionable change in QRS duration Confirmed by Jacobo Mendoza MD ([id number]) on 07/11/2018 5:35:42 PM
[2018-07-09 07:27] LABS: FREE T4 0.95 ng/dL (0.93-1.70); TSH 1.54 uIUmL (0.27-4.20)
[2018-07-09 07:39] LABS: INR 1.24; PROTIME 16.6 Seconds (11.0-16.0)
--- NOTE | 2018-07-09 08:45 | HISTORY AND PHYSICAL ---
HISTORY OF PRESENT ILLNESS: Mr. Santana is a 52-year-old with history of diabetes mellitus type 1. He has a history of benign prostatic hypertrophy. I think he was last here on 12/22/2017 with nausea and vomiting. I think he was in diabetic ketoacidosis at that time. He presents again with 3- or 4-day history of feeling worse, nauseated. He cannot give a whole lot of history. Rapid respirations and nausea. I do not have any history of what his blood sugars were. PAST SURGICAL HISTORY: He has had a cystoscopy. PAST MEDICAL HISTORY: 1. Type 1 diabetes mellitus, insulin dependent. 2. Benign prostatic hypertrophy. SOCIAL HISTORY: No tobacco or ethanol. Denies any drugs. ALLERGIES: No known drug allergies. MEDICATION: I think he takes 70/30, 30 units in the morning and 20 at night, Neurontin 300 mg t.i.d., and regular insulin 100 units 3 times a day, but that was according old notes. I think it is 30 units 3 times a day that he was supposed to be on for regular insulin. REVIEW OF SYSTEMS: He is unable to give, but he says he has felt pretty bad for the last 3 or 4 days. Denies chest pain. Denies any bleeding from any orifice. Denies fever or chills or abdominal pain. No focal neurologic changes. FAMILY HISTORY: No reports of heart or renal or kidney disease. PHYSICAL EXAMINATION: VITAL SIGNS: Temperature 97.9 degrees, pulse 99, respirations 38, blood pressure 144/73. HEENT: Pupils are equal. NECK: No distended neck veins. CVP less than 6 cm. Neck supple. No neck pain. No cervical or supraclavicular adenopathy. LUNGS: Clear in all lung lambert. CARDIOVASCULAR: Regular rhythm and rate without murmur or S3. ABDOMEN: Soft, nontender, nondistended. SKIN: Warm and dry. VITAL SIGNS: Blood pressure was 144/73, pulse 100 respirations 38. DIAGNOSTIC STUDIES: Blood sugar was 800. White count is 24,890, hemoglobin 10 , hematocrit 37, platelet count 516,000. Electrolytes: Sodium 130, potassium 7.4, chloride 87, bicarbonate 4, BUN 43, creatinine 3.3, blood sugar was 887. Magnesium 2.4. AST is 12, ALT 11 alkaline phosphatase 140. Troponin less than 0.01. Urine toxicology: Acetone is moderate. He was negative for opiates, oxycodone, methadone, barbiturates, phencyclidine, amphetamines, benzodiazepines, and cocaine. Urine showed too numerous to count white blood cells, too numerous to count red blood cells. Blood gas: PH is 6.91, pCO2 is 10, PO2 is 143, O2 saturation 99%. This was on 28% FiO2. Hemoccult blood was positive; I am assuming that was for stool. ASSESSMENT AND PLAN: 1. Diabetic ketoacidosis. We will begin on the diabetic protocol, giving liberal fluids and insulin drip. I will follow his electrolytes closely. Note that he has hyperkalemia on presentation, and he is tachypneic from his compensatory respiratory alkalosis. We will go ahead and treat him for urinary tract infection. Urine had significant sediment. We will put him in the unit. 2. Urinary tract infection. Suspect prostatitis and possible pyelonephritis. 3. Creatinine is 3.3, so acute kidney injury. Suspect this is mainly prerenal. Hopefully, it will correct with fluids. We will follow his electrolytes, including magnesium, potassium, and sodium. 4. He has some leukocytosis. I suspect this is stress demargination, but also underlying pyelonephritis. cc: Christ Lay MD MTDD
[2018-07-09] MEDS: PRILOSEC PO SCH ×2 (09:00→21:10)
[2018-07-09] MEDS: TYLENOL PO PRN ×3 (09:08→23:05)
[2018-07-09 10:29] LABS: CALCIUM 7.8 mg/dL (8.8-10.2); CREATININE 2.1 mg/dL (0.7-1.2); MAGNESIUM 1.6 mg/dL (1.5-2.7); PHOSPHORUS 2.8 mg/dL (2.7-4.5)
--- NOTE | 2018-07-09 10:29 | PROGRESS NOTE ---
DATE: 07/09/2018 SUBJECTIVE: Mr. Santana looks a lot better. He was admitted yesterday, I admitted him with diabetic ketoacidosis. He is much more comfortable and breathing comfortable. His acid level has gone down quite a bit. No nausea. He does not want food, but he is requesting some liquids. I will put him on a full liquid diet. OBJECTIVE: Temperature 98.9 degrees, pulse 95, respirations 24, and blood pressure 104/70. Pupils are equal. He is awake, alert, and oriented x3. Lungs are clear in all lung lambert. Cardiovascular: Regular rhythm and rate without murmur or S3. Abdomen: Soft. Skin: Warm and dry. LABORATORY: Urine output 4 L. Blood sugars coming down, but when he came in they were 800. The last two blood sugars of 500 and 469. DIAGNOSTIC: His EKG from this morning shows normal sinus rhythm. His electrolytes sodium 148, potassium 4.3, chloride 119, BUN 39 and creatinine 2.2. Note the creatinine when he came in was 3.3. Bicarb was up to 11. Continue diabetic protocol and given full liquids, but he is markedly improved. cc: Christ Lay MD MTDD
[2018-07-09 10:30] LABS: ALLEN TEST YES; BE -7.6 mmoll (-3.0-3.0); BLOOD TYPE ARTERIAL; METHB 0.9 % (0.0-1.5); O2(CT) 11.7 mL/dL (15.0-23.0); O2HB 96.5 % (95.0-99.0); PCO2(98.6) 28 mmHg (35-45); PO2(98.6) 90 mmHg (60-100); SAMPLE BLOOD; SAO2 98.6 % (95.0-100.0); THB 8.5 g/dL (11.5-17.4); pH(98.6) 7.38 (7.35-7.45)
[2018-07-09 10:31] LABS: MODALITY ROOM AIR
[2018-07-09] MEDS: NS 1,000 ML IV SCH (12:47)
[2018-07-09 13:57] LABS: ALLEN TEST YES; BE -9.2 mmoll (-3.0-3.0); BLOOD TYPE ARTERIAL; HCO3-(ACT) 17.8 mmoll (20.0-26.0); METHB 1.7 % (0.0-1.5); O2HB 95.5 % (95.0-99.0); PCO2(98.6) 25 mmHg (35-45); PO2(98.6) 87 mmHg (60-100); SAMPLE BLOOD; SAO2 98.9 % (95.0-100.0); THB 4.3 g/dL (11.5-17.4); pH(98.6) 7.39 (7.35-7.45)
[2018-07-09 14:16] LABS: CALCIUM 7.5 mg/dL (8.8-10.2); CREATININE 2.2 mg/dL (0.7-1.2); MAGNESIUM 2.1 mg/dL (1.5-2.7); PHOSPHORUS 2.8 mg/dL (2.7-4.5)
[2018-07-09 17:33] LABS: CALCIUM 8.1 mg/dL (8.8-10.2); CREATININE 1.9 mg/dL (0.7-1.2); MAGNESIUM 2.1 mg/dL (1.5-2.7); PHOSPHORUS 2.2 mg/dL (2.7-4.5); POTASSIUM 4.3 mmol/L (3.5-5.1)
[2018-07-09 18:04] LABS: ALLEN TEST NO; BE -7.7 mmoll (-3.0-3.0); BLOOD TYPE ARTERIAL; HCO3-(ACT) 18.9 mmoll (20.0-26.0); METHB 1.3 % (0.0-1.5); O2(CT) 11.7 mL/dL (15.0-23.0); O2HB 95.6 % (95.0-99.0); PCO2(98.6) 26 mmHg (35-45); PO2(98.6) 79 mmHg (60-100); SAMPLE BLOOD; SAO2 98.5 % (95.0-100.0); THB 8.6 g/dL (11.5-17.4)
[2018-07-09 18:05] LABS: MODALITY ROOM AIR
[2018-07-09 21:39] LABS: AGAP 10; BUN 31 mg/dL (8-22); CHLORIDE 113 mmol/L (98-107); COSMO 288; CREATININE < 0.1 mg/dL (0.7-1.2); GLUCOSE 205 mg/dL (70-104); MAGNESIUM 1.9 mg/dL (1.5-2.7); PHOSPHORUS 1.9 mg/dL (2.7-4.5); POTASSIUM 4.1 mmol/L (3.5-5.1); SODIUM 138 mmol/L (136-145); TCO2 15 mmol/L (25-35)
[2018-07-09 21:55] LABS: ALLEN TEST YES; BE -8.3 mmoll (-3.0-3.0); BLOOD TYPE ARTERIAL; HCO3-(ACT) 18.5 mmoll (20.0-26.0); METHB 0.4 % (0.0-1.5); O2(CT) 11.4 mL/dL (15.0-23.0); O2HB 96.9 % (95.0-99.0); PCO2(98.6) 24 mmHg (35-45); PO2(98.6) 84 mmHg (60-100); SAMPLE BLOOD; SAO2 98.4 % (95.0-100.0); THB 8.3 g/dL (11.5-17.4); pH(98.6) 7.41 (7.35-7.45)
[2018-07-09 21:56] LABS: MODALITY ROOM AIR
[2018-07-10 01:47] LABS: ALLEN TEST YES; BE -7.3 mmoll (-3.0-3.0); BLOOD TYPE ARTERIAL; HCO3-(ACT) 19.2 mmoll (20.0-26.0); METHB 1.2 % (0.0-1.5); O2HB 95.7 % (95.0-99.0); PCO2(98.6) 24 mmHg (35-45); PO2(98.6) 93 mmHg (60-100); SAMPLE BLOOD; SAO2 98.5 % (95.0-100.0); THB 11.8 g/dL (11.5-17.4); pH(98.6) 7.42 (7.35-7.45)
[2018-07-10 01:48] LABS: MODALITY ROOM AIR
[2018-07-10 02:09] LABS: CALCIUM 7.8 mg/dL (8.8-10.2); CREATININE 1.9 mg/dL (0.7-1.2); POTASSIUM 3.7 mmol/L (3.5-5.1)
[2018-07-10] MEDS: POTASSIUM CHLORIDE 10% LIQUID PO PRN ×4 (02:10→13:34)
[2018-07-10] MEDS: NS 1,000 ML IV SCH ×3 (02:10→13:15)
[2018-07-10] MEDS: D5 NS 1,000 ML IV SCH ×3 (02:10→16:37)
[2018-07-10] MEDS: TYLENOL PO PRN ×3 (05:13→20:16)
[2018-07-10 06:34] LABS: CALCIUM 7.7 mg/dL (8.8-10.2); CREATININE 1.7 mg/dL (0.7-1.2); MAGNESIUM 1.9 mg/dL (1.5-2.7); PHOSPHORUS 2.1 mg/dL (2.7-4.5); POTASSIUM 3.9 mmol/L (3.5-5.1)
[2018-07-10] MEDS: PRILOSEC PO SCH ×2 (08:24→20:16)
[2018-07-10] MEDS: ZOFRAN IV PRN (09:44)
[2018-07-10 09:46] LABS: ALLEN TEST YES; BE -9.5 mmoll (-3.0-3.0); BLOOD TYPE ARTERIAL; HCO3-(ACT) 17.5 mmoll (20.0-26.0); METHB 0.9 % (0.0-1.5); MODALITY ROOM AIR; O2(CT) 15.2 mL/dL (15.0-23.0); O2HB 95.5 % (95.0-99.0); PCO2(98.6) 21 mmHg (35-45); PO2(98.6) 79 mmHg (60-100); SAMPLE BLOOD; THB 11.3 g/dL (11.5-17.4); pH(98.6) 7.41 (7.35-7.45)
[2018-07-10 10:02] LABS: CALCIUM 7.8 mg/dL (8.8-10.2); MAGNESIUM 1.8 mg/dL (1.5-2.7); PHOSPHORUS 2.2 mg/dL (2.7-4.5); POTASSIUM 4.3 mmol/L (3.5-5.1)
--- NOTE | 2018-07-10 10:31 | PROGRESS NOTE ---
DATE: 07/10/2018 SUBJECTIVE: Mr. Santana is feeling better. His left side and back still are hurting him. His potassium has dwindled down and we are supplementing that. Blood sugar is hovering between 170 and around 250. He is not hungry and still has a good deal of nausea. I am going to try some Reglan. OBJECTIVE: Vitals: Temperature 100.4 degrees, pulse 86, respirations 28, blood pressure 139/92. HEENT: Pupils are equal and round. Lungs: Clear in all lung lambert. Cardiovascular: Regular rhythm and rate without murmur or S3. Abdomen: Soft. Skin: Warm and dry. DIAGNOSTIC DATA: Urine output is 2100 mL. Blood sugars stay going down to 170, between 170 to 250 for the most part. On review of his labs this morning sodium 138, potassium 4.3, chloride 111, BUN 27, creatinine 2.0. Yesterday it was 1.7. Blood sugars 177, 202, 175, and 196 sequential. ASSESSMENT AND PLAN: 1. Diabetic ketoacidosis. He is on diabetic protocol. His bicarb is up to 15. Supplementing his potassium, keep him on that a little longer. May be able to switch him to a sliding scale. 2. Still persistent nausea, suspect he may have some gastroparesis. Going to start him on some routine Reglan. He also has Zofran as needed. 3. Left back pain. See if we can sit him up in a chair, see if that will help. 4. Review of his orders. He is still getting D5, normal saline at 125 mL an hour, and we have supplemented his magnesium and potassium. Start him on Reglan 5 mg p.o. before meals and at bedtime. He is on Prilosec 40 mg b.i.d. I do have him on a diabetic diet. cc: Christ Lay MD
[2018-07-10] MEDS: REGLAN PO SCH ×3 (10:47→20:28)
[2018-07-10 13:27] LABS: CALCIUM 7.8 mg/dL (8.8-10.2); CREATININE 1.8 mg/dL (0.7-1.2); MAGNESIUM 1.9 mg/dL (1.5-2.7); PHOSPHORUS 1.7 mg/dL (2.7-4.5); POTASSIUM 4.4 mmol/L (3.5-5.1)
[2018-07-10 13:56] LABS: ALLEN TEST YES; BE -10.7 mmoll (-3.0-3.0); BLOOD TYPE ARTERIAL; HCO3-(ACT) 16.6 mmoll (20.0-26.0); METHB 0.9 % (0.0-1.5); O2(CT) 11.3 mL/dL (15.0-23.0); PO2(98.6) 81 mmHg (60-100); SAMPLE BLOOD; SAO2 98.2 % (95.0-100.0); THB 8.3 g/dL (11.5-17.4); pH(98.6) 7.42 (7.35-7.45)
[2018-07-10 13:58] LABS: MODALITY ROOM AIR; PCO2(98.6) 19 mmHg (35-45)
[2018-07-10] MEDS: HUMULIN R SUBQ SCH ×2 (15:14→20:28)
[2018-07-10] MEDS ORDERED: HUMULIN 70/30 SUBQ SCH ×2 (17:00→21:00)
[2018-07-10 17:17] LABS: ALLEN TEST YES; BE -9.2 mmoll (-3.0-3.0); BLOOD TYPE ARTERIAL; HCO3-(ACT) 17.7 mmoll (20.0-26.0); METHB 1.6 % (0.0-1.5); O2HB 93.4 % (95.0-99.0); PO2(98.6) 66 mmHg (60-100); SAMPLE BLOOD; SAO2 96.3 % (95.0-100.0); THB 9.1 g/dL (11.5-17.4); pH(98.6) 7.45 (7.35-7.45)
[2018-07-10 17:18] LABS: MODALITY ROOM AIR; PCO2(98.6) 19 mmHg (35-45)
[2018-07-10 18:54] LABS: CALCIUM 7.8 mg/dL (8.8-10.2); MAGNESIUM 1.7 mg/dL (1.5-2.7); PHOSPHORUS 1.4 mg/dL (2.7-4.5); POTASSIUM 4.5 mmol/L (3.5-5.1)
[2018-07-10] MEDS ORDERED: NORCO-10 PO ONE (21:14)
[2018-07-10 21:39] LABS: MAGNESIUM 1.7 mg/dL (1.5-2.7); PHOSPHORUS 1.6 mg/dL (2.7-4.5)
[2018-07-11] MEDS: NS 1,000 ML IV SCH ×3 (00:49→18:14)
[2018-07-11 04:38] LABS: ALLEN TEST YES; BE -10.8 mmoll (-3.0-3.0); BLOOD TYPE ARTERIAL; HCO3-(ACT) 16.5 mmoll (20.0-26.0); METHB 0.8 % (0.0-1.5); O2(CT) 12.1 mL/dL (15.0-23.0); O2HB 95.6 % (95.0-99.0); PCO2(98.6) 21 mmHg (35-45); PO2(98.6) 75 mmHg (60-100); SAMPLE BLOOD; THB 8.9 g/dL (11.5-17.4); pH(98.6) 7.39 (7.35-7.45)
[2018-07-11 04:41] LABS: MODALITY ROOM AIR
[2018-07-11] MEDS: REGLAN PO SCH ×4 (06:15→21:22)
[2018-07-11] MEDS ORDERED: INSULIN PEN NEEDLES ONE (06:15)
[2018-07-11] MEDS: HUMULIN R SUBQ SCH ×4 (06:15→21:31)
[2018-07-11 06:19] LABS: CALCIUM 7.9 mg/dL (8.8-10.2); CREATININE 1.8 mg/dL (0.7-1.2); MAGNESIUM 1.8 mg/dL (1.5-2.7); PHOSPHORUS 2.5 mg/dL (2.7-4.5); POTASSIUM 4.8 mmol/L (3.5-5.1)
[2018-07-11] MEDS ORDERED: LEVEMIR SUBQ ONE (08:07)
--- NOTE | 2018-07-11 08:55 | PROGRESS NOTE ---
DATE: 07/11/2018 SUBJECTIVE: Mr. Santana is feeling much better. His back is not as painful. He is eating. He is back on his own sliding scale, off the insulin drip. We started him back on 70/30. I think I will put him on some Lantus as well. OBJECTIVE: Vital Signs: Temperature 99.6 degrees, pulse 78, respirations 19, blood pressure 133/83. HEENT: Pupils are equal and round. Lungs: Clear in all lung lambert. Cardiovascular Examination: Regular rhythm and rate without murmur or S3. Abdomen: Soft. Skin: Warm and dry. Is and Os: Urine output 5200 mL. ASSESSMENT AND PLAN: 1. Diabetic ketoacidosis. His bicarb is up to 13. He is eating, on sliding scale. Creatinine is about 1.8, sodium 136, potassium 4.8, chloride 110, BUN 28, creatinine 1.8. Phosphorus is up to 2.5. Continue diet. I will add Lantus insulin 70/30, go up on his 70/30 to 12 units twice a day. 2. Diabetes mellitus type 1 I think. 3. Suspect he has some gastroparesis. He is on Reglan. 4. Lower back pain, which appears to be musculoskeletal. Increase his activity. 5. Review of his orders. I do not see any changes other than we will add the Lantus insulin and increase his 70/30 to 12 units twice a day. cc: Christ Lay MD
[2018-07-11] MEDS: PRILOSEC PO SCH ×2 (09:25→21:22)
[2018-07-11] MEDS: TYLENOL PO PRN (16:34)
[2018-07-11] MEDS: HUMULIN 70/30 SUBQ SCH (16:46)
--- NOTE | 2018-07-11 20:26 | Diag Imaging Result Doc PS360 ---
EXAM: CHEST-PORTABLE 07/11/2018 HISTORY: increased WOB TECHNIQUE: AP portable at 2019 COMMENT: There is ill-defined alveolar opacity in the left lower lobe and to some extent in the lateral right lower lobe. This was not the case on 12/17/2016. IMPRESSION: Pneumonia and/or pulmonary edema. Electronically signed by Senthil Rudolph 07/11/2018 8:24 PM
[2018-07-11 20:51] LABS: BASO# 0.02 X1000 (0.0-0.2); BASO% 0.2 % (0.0-0.8); EOS# 0.05 X1000 (0.0-0.7); EOS% 0.6 % (0.0-10.0); HEMATOCRIT 27.1 % (42.0-52.0); HEMOGLOBIN 8.5 g/dL (14.0-18.0); IMM GRAN# 0.02 X1000 (0.0-0.04); IMM GRAN% 0.2 % (0.0-0.5); LYMPH# 0.57 X1000 (1.2-3.4); LYMPH% 6.8 % (20.5-51.1); MCH 27.2 PG (27-31); MCHC 31.4 g/dL (33-37); MCV 86.6 FL (81-99); MONO# 0.59 X1000 (0.11-0.59); MPV 9.3 FL (7.4-10.4); NEUT# 7.17 X1000 (1.4-6.5); NEUT% 85.2 % (42.2-75.2); PLT 281 X1000 (130-400); RBC 3.13 XMIL (4.7-6.1); RDW 13.3 % (11.5-14.5); WBC 8.42 X1000 (4.8-10.8)
[2018-07-11 20:58] LABS: MAGNESIUM 1.6 mg/dL (1.5-2.7); POTASSIUM 4.1 mmol/L (3.5-5.1)
[2018-07-11 21:32] LABS: BASO 1 % (0-1); EOS 1 % (1-10); LYMPHS 8 % (21-51); MONO 2 % (1-9); SEGS 88 % (42-75)
[2018-07-11 21:33] LABS: ANISOCYTOSIS 1+; HYPOCHROM OCCASIONAL
[2018-07-11] MEDS ORDERED: TYLENOL PO ONE (21:38)
[2018-07-11] MEDS: MAXIPIME 0.5 GM in NS 50 ML IV SCH (22:35)
[2018-07-11] MEDS: DOXYCYCLINE 100 MG in NS 250 ML IV SCH (22:40)
[2018-07-11] MEDS: LEVEMIR SUBQ SCH (22:43)
[2018-07-12] MEDS: NS 1,000 ML IV SCH ×2 (06:06→19:50)
[2018-07-12] MEDS: REGLAN PO SCH ×4 (06:06→20:11)
[2018-07-12] MEDS: TYLENOL PO PRN ×2 (06:25→19:50)
[2018-07-12] MEDS: HUMULIN R SUBQ SCH ×4 (06:28→22:22)
[2018-07-12] MEDS: HUMULIN 70/30 SUBQ SCH ×2 (07:57→16:35)
--- NOTE | 2018-07-12 08:07 | EKG Report ---
Test Performed on : 07/11/2018 6:35:50 PM Test Reason : chest pain Blood Pressure : / mmHG Vent. Rate : 097 BPM Atrial Rate : 097 BPM P-R Int : 148 ms QRS Dur : 076 ms QT Int : 346 ms P-R-T Axes : 059 -10 017 degrees QTc Int : 439 ms Normal sinus rhythm. Normal ECG When compared with ECG of 09-JUL-2018 06:46, No significant change was found Confirmed by Jacobo Mendoza MD ([id number]) on 07/12/2018 3:56:12 PM
[2018-07-12] MEDS: MAXIPIME 0.5 GM in NS 50 ML IV SCH ×2 (09:56→22:18)
[2018-07-12] MEDS: PRILOSEC PO SCH ×2 (09:56→20:11)
[2018-07-12] MEDS: DOXYCYCLINE 100 MG in NS 250 ML IV SCH (14:00)
--- NOTE | 2018-07-12 14:02 | PROGRESS NOTE ---
DATE: 07/12/2018 Mr. Santana is doing better as far as his blood sugar but he has had this pleuritic pain, feeling short of breath started yesterday, temperature was 101 degrees, temperature this morning 99.2, pulse 90, respirations 18, blood pressure 117/71. Pupils are equal and round.Lungs: Clear in all lung lambert. Cardiovascular: Regular rhythm and rate without murmur or S3. Abdomen: Soft. Skin: Warm and dry. Urine output is 3700 mL. Blood sugar 335, 137, 133, 386. His chest x-ray from yesterday pneumonia, ill-defined opacity in the left lower lobe some extent lateral right lobe so his exam today as above. ASSESSMENT AND PLAN: 1. Diabetic ketoacidosis. This is improved, his acid level is going down. He has a hematocrit 27, hemoglobin 8.5 with an MCV of 86 so watching it his blood count, his blood sugars appear to be well controlled. 2. Appears he has pneumonia, this likely could have been from aspiration when he was so sick when he came in. As far as his diabetes mellitus type 1 he is eating and back on sliding scale and started him on some maintenance insulin, he shows no sign of left ventricular dysfunction but we are going to treat him with antibiotic covering hospital organisms. He is on cefepime and he gets 500 mg IV q.12 and he is on doxycycline as well 100 mg q.12. Repeat another chest x- ray in the morning. I am go ahead and get echocardiogram on him look at his left ventricular function. cc: Christ Lay MD
[2018-07-12] MEDS: LEVEMIR SUBQ SCH (22:21)
[2018-07-13] MEDS: TYLENOL PO PRN (03:00)
[2018-07-13] MEDS: DOXYCYCLINE 100 MG in NS 250 ML IV SCH ×2 (03:02→14:13)
[2018-07-13] MEDS: REGLAN PO SCH ×4 (06:14→20:10)
[2018-07-13] MEDS: NS 1,000 ML IV SCH ×2 (06:22→09:06)
[2018-07-13] MEDS: HUMULIN R SUBQ SCH ×4 (06:41→21:01)
[2018-07-13 07:45] LABS: BASO# 0.05 X1000 (0.0-0.2); BASO% 0.9 % (0.0-0.8); CALCIUM 7.7 mg/dL (8.8-10.2); CREATININE 1.7 mg/dL (0.7-1.2); EOS# 0.08 X1000 (0.0-0.7); EOS% 1.4 % (0.0-10.0); HEMATOCRIT 27.6 % (42.0-52.0); HEMOGLOBIN 8.2 g/dL (14.0-18.0); IMM GRAN# 0.03 X1000 (0.0-0.04); IMM GRAN% 0.5 % (0.0-0.5); LYMPH# 0.51 X1000 (1.2-3.4); LYMPH% 8.8 % (20.5-51.1); MCH 27.5 PG (27-31); MCHC 29.7 g/dL (33-37); MCV 92.6 FL (81-99); MONO# 0.87 X1000 (0.11-0.59); MONO% 15.1 % (1.7-9.3); MPV 9.5 FL (7.4-10.4); NEUT# 4.24 X1000 (1.4-6.5); NEUT% 73.3 % (42.2-75.2); PLT 241 X1000 (130-400); POTASSIUM 3.2 mmol/L (3.5-5.1); RBC 2.98 XMIL (4.7-6.1); RDW 14.1 % (11.5-14.5); WBC 5.78 X1000 (4.8-10.8)
--- NOTE | 2018-07-13 08:04 | ECHO REPORT ---
ORDER DATE: 07/12/2018 INTERPRETING PHYSICIAN: Dr. Zuñiga CLINICAL INDICATIONS: 53-year-old male with diabetes, hypertension. M-MODE MEASUREMENTS: Left ventricle end diastole: 4.8 cm. Left ventricle end systole: 3.9 cm. Posterior wall: 1.0 cm. Interventricular septum: 1.0 cm. Left atrium: 4.1 cm. Aortic root: 4.4 cm. SUMMARY OF 2-DIMENSIONAL IMAGING: The left ventricular chamber appears to be moderately enlarged. Left ventricular systolic function appears to be in the order of 56-61%. I do not see left ventricular wall motion abnormality. Aortic valve has 3 cusps, color flow mapping unremarkable. Pulmonary valve looks normal. Color flow mapping unremarkable. Tricuspid valve shows mild degree of regurgitation. Inferior vena cava is at the upper limits of normal. Pulmonary pressure estimated to be in the range of 28-33 mmHg. Mitral valve looks normal. Color flow mapping indicates mild degree of regurgitation. Pulse wave Doppler of mitral inflow shows normal E/A ratio. Tissue Doppler of septal and lateral mitral annulus averages 10 cm per second. Pulmonary venous flow is normal. There is no diastolic dysfunction. There may be a trivial pericardial effusion. There is questionable thickening of the pericardium especially around the right atrium. Correlation may have to be done with a CT scan of the chest with contrast. SUMMARY: This study shows 1. Moderately enlarged left ventricle with preserved systolic function, ejection fraction 56-61%. 2. No diastolic dysfunction. 3. Pulmonary pressure 28-33 mmHg. 4. Mild degree of tricuspid and mitral regurgitation. 5. A questionable thickening of pericardium around the right atrium. Consider correlating with a CT of the chest with contrast to make sure there is no pericarditis. Clinical correction recommended. cc: MD Christ Brito MD
--- NOTE | 2018-07-13 08:21 | Diag Imaging Result Doc PS360 ---
EXAM: CHEST-PORTABLE 07/13/2018 HISTORY: pneumonia TECHNIQUE: AP portable at 0803 COMMENT: There is increasing left pleural fluid and obscuration of the left hemidiaphragm. There is alveolar pulmonary edema in both lower lobes. There is increased pleural fluid on the right side. IMPRESSION: Worsening pulmonary edema and pleural effusions. Electronically signed by Senthil Rudolph 07/13/2018 8:17 AM
[2018-07-13 08:46] LABS: BANDS 2 % (0-1); LYMPHS 14 % (21-51); MONO 6 % (1-9); SEGS 78 % (42-75)
[2018-07-13] MEDS: HUMULIN 70/30 SUBQ SCH ×3 (09:09→17:40)
[2018-07-13] MEDS: PRILOSEC PO SCH ×2 (09:09→20:10)
[2018-07-13] MEDS: MAXIPIME 0.5 GM in NS 50 ML IV SCH ×2 (09:49→21:59)
--- NOTE | 2018-07-13 15:35 | PROGRESS NOTE ---
DATE: 07/13/2018 SUBJECTIVE: This morning, Mr. Alonzo refers to be doing fairly okay. He denies any complaints. OBJECTIVE: Vital Signs: Blood pressure is 118/70, pulse is 81, respiration is 18, temperature is 98.8. General: Mr. Santana is a 53-year-old gentleman. He was in bed. He was not in any cardiopulmonary distress. Mucosa is pink and moist. Anicteric. Acyanotic. Neck is supple. Chest: Air entry bilaterally reduced. There were a few crackles posterior. There was no crepitations. No rhonchi. Cardiovascular: Regular rate and rhythm. No murmurs , no rubs, no gallops. Abdomen was soft and nontender. Bowel sounds present. Extremities: No pedal edema. SPORTS EQUIPMENT REPAIRER: Patient was awake, alert, and oriented. There is no focal neurological deficit. LABORATORY DATA: WBC is 5.78, hemoglobin is 8.2, platelet count of 241,000. Chemistry: Sodium is 138, potassium is 3.2, chloride is 109, bicarb is 12, creatinine is 1.7. So far, blood cultures have all been negative. Urine culture was positive for yeast. ASSESSMENT: 1. Diabetic ketoacidosis on presentation, improved. 2. Severe uncontrolled diabetes mellitus with presenting A1c of 13.3. The patient is currently on insulin regimen. case worker is consulted for medication assistance. 3. [id number] renal failure. Creatinine is down to 1.7 which is probably the patient's baseline. 4. Pulmonary edema likely due to over hydration. Fluids have been discontinued. 5. Echocardiogram shows moderately enlarged left ventricle with preserved ejection fraction of 56 to 61%. 6. Left lower lobe pneumonia. Patient is currently on antibiotics. cc: Mario Carrasco MD [facility]
[2018-07-13] MEDS: LEVEMIR SUBQ SCH (21:01)
[2018-07-13] MEDS: QUESTRAN PO SCH (21:12)
[2018-07-14] MEDS: DOXYCYCLINE 100 MG in NS 250 ML IV SCH ×2 (02:21→15:28)
[2018-07-14] MEDS: HUMULIN R SUBQ SCH ×4 (06:24→22:12)
[2018-07-14] MEDS: REGLAN PO SCH ×4 (06:24→22:11)
[2018-07-14 07:17] LABS: BASO# 0.02 X1000 (0.0-0.2); BASO% 0.5 % (0.0-0.8); EOS# 0.16 X1000 (0.0-0.7); EOS% 3.9 % (0.0-10.0); HEMATOCRIT 23.6 % (42.0-52.0); HEMOGLOBIN 7.4 g/dL (14.0-18.0); LYMPH# 0.76 X1000 (1.2-3.4); LYMPH% 18.7 % (20.5-51.1); MCH 26.6 PG (27-31); MCHC 31.4 g/dL (33-37); MCV 84.9 FL (81-99); MONO# 0.48 X1000 (0.11-0.59); MONO% 11.8 % (1.7-9.3); MPV 9.4 FL (7.4-10.4); NEUT# 2.64 X1000 (1.4-6.5); NEUT% 65.1 % (42.2-75.2); PLT 279 X1000 (130-400); RBC 2.78 XMIL (4.7-6.1); RDW 13.3 % (11.5-14.5); WBC 4.06 X1000 (4.8-10.8)
[2018-07-14 07:48] LABS: AGAP 13; ALB/GLOB RATIO 0.7; ALBUMIN 2.2 g/dL (3.5-5.0); ALKALINE PHOSPHATASE 135 U/L (32-122); BUN 22 mg/dL (8-22); CALCIUM 7.8 mg/dL (8.8-10.2); CHLORIDE 109 mmol/L (98-107); COSMO 281; CREATININE 1.8 mg/dL (0.7-1.2); ESTIMATED GFR 40; GLUCOSE 141 mg/dL (70-104); GOT 16 U/L (10-34); GPT 19 U/L (10-44); POTASSIUM 3.3 mmol/L (3.5-5.1); SODIUM 138 mmol/L (136-145); TCO2 16 mmol/L (25-35); TOTAL BILIRUBIN < 0.15 mg/dL (0.20-1.00); TOTAL PROTEIN 5.5 g/dL (6.3-8.3)
--- NOTE | 2018-07-14 08:02 | Diag Imaging Result Doc PS360 ---
EXAM: CHEST-2 VIEWS HISTORY: hypoxia TECHNIQUE: Chest two views COMPARISON: 07/13/2018 FINDINGS: The lungs are better expanded on the current exam. There are small bilateral pleural effusions which remain, left is larger than the right. There is also basilar atelectasis and infiltrates, left is worse than the right. Overall the findings are less pronounced than on the prior study. There is no pulmonary edema. No cardiomegaly. IMPRESSION: Interval improvement. Electronically signed by Davy Suarez 07/14/2018 7:59 AM
[2018-07-14 08:42] LABS: EOS 4 % (1-10); HYPOCHROM 1+; LYMPHS 8 % (21-51); MONO 14 % (1-9); SEGS 74 % (42-75)
[2018-07-14] MEDS: PRILOSEC PO SCH ×2 (10:07→22:10)
[2018-07-14] MEDS: QUESTRAN PO SCH ×3 (10:07→22:11)
[2018-07-14] MEDS: MAXIPIME 0.5 GM in NS 50 ML IV SCH ×2 (10:07→22:10)
[2018-07-14] MEDS: HUMULIN 70/30 SUBQ SCH (10:16)
[2018-07-14 11:45] LABS: IRON SATURATION 5 %; TIBC 162 ug/dL
[2018-07-14 11:46] LABS: TOTAL IRON 8 ug/dL (53-167); UNBOUND IRON 154 ug/dL (112-346)
[2018-07-14] MEDS: CULTURELLE PO SCH ×2 (12:06→22:10)
[2018-07-14 13:19] LABS: FERRITIN 110 ng/mL (30-400)
[2018-07-14] MEDS ORDERED: VENOFER 200 MG in NS 150 ML IV ONE (16:32)
[2018-07-14] MEDS ORDERED: HUMULIN 70/30 SUBQ SCH (21:00)
[2018-07-15] MEDS: DOXYCYCLINE 100 MG in NS 250 ML IV SCH ×2 (02:07→13:12)
[2018-07-15] MEDS: HUMULIN R SUBQ SCH ×2 (06:07→11:12)
[2018-07-15] MEDS: REGLAN PO SCH ×2 (06:07→11:16)
[2018-07-15 07:43] VITALS: BP 129/68
[2018-07-15 07:44] LABS: BASO# 0.02 X1000 (0.0-0.2); BASO% 0.5 % (0.0-0.8); EOS# 0.15 X1000 (0.0-0.7); HEMATOCRIT 23.8 % (42.0-52.0); HEMOGLOBIN 7.5 g/dL (14.0-18.0); IMM GRAN# 0.02 X1000 (0.0-0.04); IMM GRAN% 0.5 % (0.0-0.5); LYMPH# 0.73 X1000 (1.2-3.4); LYMPH% 19.4 % (20.5-51.1); MCH 26.9 PG (27-31); MCHC 31.5 g/dL (33-37); MCV 85.3 FL (81-99); MONO# 0.29 X1000 (0.11-0.59); MONO% 7.7 % (1.7-9.3); MPV 9.3 FL (7.4-10.4); NEUT# 2.56 X1000 (1.4-6.5); NEUT% 67.9 % (42.2-75.2); PLT 315 X1000 (130-400); RBC 2.79 XMIL (4.7-6.1); RDW 13.4 % (11.5-14.5); WBC 3.77 X1000 (4.8-10.8)
[2018-07-15 08:04] LABS: CALCIUM 7.9 mg/dL (8.8-10.2); CREATININE 1.5 mg/dL (0.7-1.2); POTASSIUM 3.4 mmol/L (3.5-5.1)
[2018-07-15 08:06] LABS: EOS 2 % (1-10); LYMPHS 4 % (21-51); MONO 4 % (1-9); SEGS 86 % (42-75)
[2018-07-15] MEDS: QUESTRAN PO SCH (08:59)
[2018-07-15] MEDS: PRILOSEC PO SCH (08:59)
[2018-07-15] MEDS: CULTURELLE PO SCH (09:00)
[2018-07-15] MEDS ORDERED: HUMULIN 70/30 SUBQ SCH (09:00)
[2018-07-15] MEDS ORDERED: SODIUM BICARBONATE PO SCH (09:15)
[2018-07-15] MEDS ORDERED: DIFLUCAN PO SCH (11:15)
[2018-07-15] MEDS: MAXIPIME 0.5 GM in NS 50 ML IV SCH (11:17)
[2018-07-15] MEDS ORDERED: MYCOSTATIN SUSP PO SCH (13:00)
--- NOTE | 2018-07-16 09:32 | DISCHARGE SUMMARY ---
ADMISSION DATE: 07/08/2018 DISCHARGE DATE: 07/15/2018 DISPOSITION: Home with home health. FOLLOWUP: 1. Dr. King. 2. Patient's PCP. CONSULTATION DURING THIS ADMISSION: None. IMAGING STUDIES OF SIGNIFICANT: Initial chest x-ray did show pneumonia and/or pulmonary edema. Subsequent x-rays showed interval improvement. ADMISSION DIAGNOSES: 1. Diabetic ketoacidosis. 2. Urinary tract infection. 3. Leukocytosis. DIAGNOSES AT THE TIME OF DISCHARGE: 1. Diabetic ketoacidosis on presentation, improved. 2. Severe uncontrolled diabetes mellitus with presenting A1c of 13.3. 3. Acute on chronic renal failure, improved. 4. Left lower lobe pneumonia. 5. Congestive heart failure with preserved ejection fraction (EF of 56 to 61%) associated with pulmonary edema. 6. Iron deficiency anemia. 7. Non-gap metabolic acidosis secondary to the degree of renal failure. Patient has been started on p.o. bicarb. 8. 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 Patient is advised to follow up with Dr. King. 9. Oral candidiasis. DISCHARGE MEDICATIONS: 1. Gabapentin 100 mg 3 times per day. 2. Amoxiclav 875 p.o. q.12h. 3. Doxycycline 100 mg daily for 5 days. 4. Insulin 70/30 thirty units in the morning and 20 units in the evening. 5. Lactobacillus 1 tablet daily. 6. Sodium bicarb 650 b.i.d. 7. Lisinopril 5 mg daily. 8. Omeprazole 40 mg daily. 9. Iron sulfate 325 b.i.d. FOLLOWUP: The patient advised to do a basic metabolic panel in 1 week, and follow up with primary care doctor and also with Dr. King. PRESENTING COMPLAINT: Nauseation, feeling worse. HISTORY OF PRESENTING COMPLAINT: Mr. Santana is a 53-year-old male with a history of diabetes mellitus, also BPH. The patient was admitted. The patient was discharged actually end of last month because of DKA, went home, and came back about a day or 2 later because he was not feeling right. Upon presentation, patient was evaluated, was found to be in DKA again, was subsequently admitted to the ICU for medical management. HOSPITAL COURSE: Mr. Santana continued to improve during the whole hospital course. DKA got resolved, and he was transferred from the ICU to regular floor. We thought the reason why he went into DKA was because 1) medication noncompliance and 2) because of pneumonia. He was started on IV antibiotics. He responded very well. WBC was 24.89 on presentation. That went down to 3.77 this morning. During the hospital course, Mr. Santana continued to improve. He was seen by physical therapy. Yesterday was able to do 100 feet with only contact-guard assistance, but no device used. This morning, Mr. Santana has been tolerating his diet. He is doing okay, so we think he is fairly stable to be discharged. He did have concern that he did not have any right to go home, so he could stay one more day. However, I thought that if we could get him a ride, he will be safe at home. He has been seen also by a social work instructor, and there has been an arrangement for medication assistance to help him with his insulin and with all his other medications. The patient does have long-standing evidence of diabetic complications, he has been advised to be extremely compliant with his insulin and also with his medical care. He needs to follow up with Dr. King because of his renal failure and the evidence of diabetic nephropathy (proteinuria). All the discharge instructions was discussed with him and he voiced understanding, despite he just wanted to stay one more day. TIME SPENT FOR DISCHARGE: 36 minutes. cc: MD Shahram Melgar MD
== END 2018-07-15 14:58 | disposition home or self-care (01) | DRG 637 ==
LOC: ED 13:32 → EDIPHOLD 15:48 → SUATTDRO 15:48 → ICU 16:31 → 3N 07-11 13:54
PROVIDERS: ATTEND Internal Medicine
CPT/HCPCS: 51702; 71010; 71020; 71045; 71046; 80048; 80053; 80061; 80101; 80301; 80307; 80324; 80345; 80346; 80353; 80358; 80361; 80365; 81001; 82009; 82150; 82330; 82550; 82607; 82728; 82746; 82805; 82947; 82948; 83036; 83540; 83550; 83605; 83690; 83721; 83735; 83992; 84100; 84132; 84153; 84439; 84443; 84484; 85025; 85610; 85730; 87040; 87088; 87324; 87449; 93005; 93010; 93306; 94640; 94761; 96365; 96367; 96375; 97161; 99285; A9270; C8929; G0431; G0434; G0479; G0480; J0692; J0696; J1450; J1756; J1940; J2405; J3370; J3475; J7030; J7042; J7050; J7060; Q9957; XXXXX

== ENCOUNTER 2018-08-28 20:14 | Inpatient (IN) ==
[2018-08-28] MEDS ORDERED: NS 1,000 ML IV ONE ×2 (20:35→22:34)
[2018-08-28] MEDS ORDERED: HUMULIN R (PARKWAY) IV ONE ×2 (20:36→22:07)
[2018-08-28 20:38] LABS: BE -20.2 mmoll (-3.0-3.0); BLOOD TYPE ARTERIAL; HCO3-(ACT) 9.1 mmoll (20.0-26.0); METHB 1.1 % (0.0-1.5); O2(CT) 16.6 mL/dL (15.0-23.0); PO2(98.6) 115 mmHg (60-100); SAMPLE BLOOD; SAO2 99.1 % (95.0-100.0); THB 12.2 g/dL (11.5-17.4)
[2018-08-28 20:40] LABS: MODALITY ROOM AIR
[2018-08-28 20:41] LABS: ALLEN TEST YES; PCO2(98.6) 15 mmHg (35-45); pH(98.6) 7.19 (7.35-7.45)
[2018-08-28 20:42] LABS: BILIRUBIN URINE NEGATIVE (NEGATIVE); BLOOD URINE 4+ (NEGATIVE); CLARITY VERY CLOUDY (CLEAR); COLOR AMBER; KETONE URINE 3+(Large) mg/dL (NEGATIVE); LEUKOCYTES URINE 2+ (NEGATIVE); NITRITE URINE POSITIVE (NEGATIVE); PH URINE 6.5; URINE SOURCE CATH; UROBILINOGEN URINE NORMAL
[2018-08-28 20:44] LABS: URINE WBC TNTC /HPF (<10)
[2018-08-28] MEDS ORDERED: ROCEPHIN 1 GM in NS 50 ML IV ONE (20:44)
[2018-08-28 20:45] LABS: URINE BACTERIA 4+ /HFP; URINE CAST NONE SEEN /LPF; URINE CRYSTAL NONE SEEN /HPF; URINE EPITHELIAL CELLS <10 /HPF (<10); URINE YEAST PRESENT /HPF
[2018-08-28] MEDS ORDERED: ZOFRAN IM ONE (20:46)
[2018-08-28 20:55] LABS: BASO# 0.05 X1000 (0.0-0.2); BASO% 0.8 % (0.0-0.8); EOS# 0.06 X1000 (0.0-0.7); HEMATOCRIT 36.3 % (42.0-52.0); HEMOGLOBIN 11.5 g/dL (14.0-18.0); IMM GRAN# 0.02 X1000 (0.0-0.04); IMM GRAN% 0.3 % (0.0-0.5); LYMPH# 1.07 X1000 (1.2-3.4); LYMPH% 17.4 % (20.5-51.1); MCH 26.3 PG (27-31); MCHC 31.7 g/dL (33-37); MCV 82.9 FL (81-99); MONO# 0.36 X1000 (0.11-0.59); MONO% 5.9 % (1.7-9.3); MPV 9.4 FL (7.4-10.4); NEUT# 4.58 X1000 (1.4-6.5); NEUT% 74.6 % (42.2-75.2); PLT 478 X1000 (130-400); RBC 4.38 XMIL (4.7-6.1); RDW 14.8 % (11.5-14.5); WBC 6.14 X1000 (4.8-10.8)
[2018-08-28] MEDS ORDERED: HUMULIN R (PARKWAY) ONE ×2 (20:59→22:00)
[2018-08-28] MEDS ORDERED: HUMULIN R (PARKWAY) 100 UNITS in NS 100 ML IV SCH (21:00)
[2018-08-28] MEDS ORDERED: NS 0 ML ONE (21:01)
[2018-08-28 21:16] LABS: MAGNESIUM 2.5 mg/dL (1.5-2.7)
[2018-08-28 21:17] LABS: UR AMPHETAMINES QUAL NONE DETECTED (NONE DETECT); UR BARBITUATES QUAL NONE DETECTED (NONE DETECT); UR BENZODIAZEPIN QUAL NONE DETECTED (NONE DETECT); UR CANNABINOIDS QUAL NONE DETECTED (NONE DETECT); UR COCAINE QUAL NONE DETECTED (NONE DETECT); UR METHADONE QUAL NONE DETECTED (NONE DETECT); UR METHAMPHETAMINE QUAL NONE DETECTED (NONE DETECT); UR OPIATES QUAL NONE DETECTED (NONE DETECT); UR OXYCODONE QUAL NONE DETECTED (NONE DETECT); UR PCP QUAL NONE DETECTED (NONE DETECT); UR PROPOXYPHENE QUAL NONE DETECTED (NONE DETECT); UR TCA QUAL NONE DETECTED (NONE DETECT)
[2018-08-28 21:50] LABS: ALBUMIN 4.1 g/dL (3.5-5.0); CALCIUM 9.4 mg/dL (8.8-10.2); CREATININE 2.4 mg/dL (0.7-1.2); TOTAL BILIRUBIN 0.3 mg/dL (0.20-1.00)
[2018-08-28] MEDS ORDERED: NS 2,000 ML ONE (21:50)
[2018-08-28 21:51] LABS: POTASSIUM 6.3 mmol/L (3.5-5.1)
[2018-08-28] MEDS ORDERED: MORPHINE IV ONE (23:14)
[2018-08-28] MEDS ORDERED: TYLENOL PO PRN (23:16)
[2018-08-28] MEDS ORDERED: ZOFRAN IV PRN (23:16)
[2018-08-28] MEDS ORDERED: NS 1,000 ML IV SCH (23:30)
[2018-08-28] MEDS ORDERED: SODIUM CHLORIDE 0.9% INJ SCH (23:30)
[2018-08-28] MEDS: PROTONIX IV SCH (23:40)
[2018-08-29] MEDS ORDERED: NS 1,000 ML ONE (01:01)
[2018-08-29] MEDS ORDERED: D5 NS 1,000 ML IV SCH ×2 (02:45→04:30)
[2018-08-29 04:27] LABS: ALLEN TEST YES; BE -6.3 mmoll (-3.0-3.0); BLOOD TYPE ARTERIAL; METHB 1.2 % (0.0-1.5); MODALITY ROOM AIR; O2(CT) 13.7 mL/dL (15.0-23.0); PCO2(98.6) 36 mmHg (35-45); PO2(98.6) 100 mmHg (60-100); SAMPLE BLOOD; SAO2 99.1 % (95.0-100.0); pH(98.6) 7.33 (7.35-7.45)
[2018-08-29] MEDS ORDERED: ZOFRAN ODT PO PRN (04:28)
[2018-08-29] MEDS ORDERED: POTASSIUM CHLORIDE 40 MEQ/SWI 40 MEQ/100 ML IVPB IV PRN (04:30)
[2018-08-29] MEDS ORDERED: SODIUM PHOSPHATE 30 MMOL in D5W 250 ML IV PRN (04:30)
[2018-08-29] MEDS ORDERED: HUMULIN R 100 UNIT in NS 99 ML IV SCH (04:30)
[2018-08-29] MEDS ORDERED: HUMULIN R IV ONE (04:30)
[2018-08-29] MEDS ORDERED: SODIUM BICARBONATE 8.4% 50 MEQ in D5W 250 ML IV PRN (04:30)
[2018-08-29] MEDS ORDERED: MAGNESIUM SULFATE 2 GM/S.W.I. 2 GM/50 ML IVPB IV PRN (04:30)
[2018-08-29] MEDS ORDERED: NS 1,000 ML IV SCH ×2 (04:30)
[2018-08-29] MEDS ORDERED: ZOFRAN IV PRN ×2 (04:30→09:36)
[2018-08-29] MEDS ORDERED: TYLENOL PR PRN (04:30)
[2018-08-29] MEDS ORDERED: D50W SYRINGE IV PRN (04:30)
[2018-08-29] MEDS ORDERED: SODIUM BICARBONATE 8.4% 100 MEQ in D5W 500 ML IV PRN (04:30)
[2018-08-29 04:47] LABS: HEMOGLOBIN A1C 15.4 % (4.8-6.0)
[2018-08-29 04:56] LABS: CALCIUM 8.1 mg/dL (8.8-10.2); CREATININE 1.9 mg/dL (0.7-1.2); MAGNESIUM 2.1 mg/dL (1.5-2.7); PHOSPHORUS 3.3 mg/dL (2.7-4.5); POTASSIUM 5.2 mmol/L (3.5-5.1)
[2018-08-29] MEDS: POTASSIUM CHLORIDE 20 MEQ/SWI 20 MEQ/100 ML IVPB IV PRN ×2 (05:03→09:21)
[2018-08-29 06:29] LABS: AGAP 24; BUN 50 mg/dL (8-22); CHLORIDE 99 mmol/L (98-107); COSMO 297; CREATININE 2.2 mg/dL (0.7-1.2); GLUCOSE 302 mg/dL (70-104); SODIUM 136 mmol/L (136-145); TCO2 13 mmol/L (25-35)
[2018-08-29 06:30] LABS: ALBUMIN 3.2 g/dL (3.5-5.0); ALKALINE PHOSPHATASE 105 U/L (32-122); CALCIUM 8.2 mg/dL (8.8-10.2); ESTIMATED GFR > 60; TOTAL BILIRUBIN < 0.15 mg/dL (0.20-1.00)
[2018-08-29 06:31] LABS: GOT 6 U/L (10-34); GPT < 5 U/L (10-44)
[2018-08-29 08:10] LABS: CALCIUM 7.9 mg/dL (8.8-10.2); CREATININE 1.7 mg/dL (0.7-1.2); PHOSPHORUS 3.2 mg/dL (2.7-4.5); POTASSIUM 4.3 mmol/L (3.5-5.1)
[2018-08-29 08:36] LABS: BE -4.8 mmoll (-3.0-3.0); BLOOD TYPE ARTERIAL; HCO3-(ACT) 21.2 mmoll (20.0-26.0); O2(CT) 14.9 mL/dL (15.0-23.0); O2HB 96.1 % (95.0-99.0); PCO2(98.6) 38 mmHg (35-45); PO2(98.6) 103 mmHg (60-100); SAMPLE BLOOD; SAO2 98.9 % (95.0-100.0); THB 10.9 g/dL (11.5-17.4); pH(98.6) 7.34 (7.35-7.45)
[2018-08-29 08:40] LABS: ALLEN TEST YES; MODALITY ROOM AIR
[2018-08-29] MEDS ORDERED: TYLENOL PO PRN (09:36)
[2018-08-29] MEDS ORDERED: INSULIN PEN NEEDLES MISC PRN (09:41)
[2018-08-29] MEDS ORDERED: BASAGLAR SUBQ SCH (09:45)
[2018-08-29] MEDS: ROCEPHIN 1 GM in NS 50 ML IV SCH (11:44)
[2018-08-29] MEDS: HUMALOG (PARKWAY) SUBQ SCH ×3 (11:44→22:29)
--- NOTE | 2018-08-29 22:21 | HISTORY AND PHYSICAL ---
HISTORY OF PRESENT ILLNESS: Patient is a 53-year-old male who presented to the emergency department with blood sugars elevated in the ER. He was noted to have blood sugar at 400. He was seen at [facility] yesterday. Was noted to have chest pains. Was diagnosed with acid reflux. Currently, notes his chest pain is better. He states he is still nauseated, vomiting. Still not able to keep anything down. Still very weak. ALLERGIES: No known drug allergies. MEDICATIONS: Percocet p.r.n., Humulin 70/30, lisinopril. REVIEW OF SYSTEMS: As noted above. Patient states he is nauseated, vomiting. Denies any hematuria, hematochezia, melena. Still having some diarrhea. Denies any fevers or chills. Denies any radiation of his abdominal pain, having generalized abdominal pain. Denies chest pain, palpitations. Denies hematemesis. PAST MEDICAL HISTORY: Significant for diabetes, kidney stones, chronic UTIs, chronic anxiety, hypertension. FAMILY HISTORY: Noncontributory. SOCIAL HISTORY: Patient lives at home. States he does not smoke. Denies drug use. PHYSICAL EXAMINATION: VITAL SIGNS: He is afebrile. Pulse 93, respiratory 20-28, BP 143/89, sat 93% on room air. GENERAL: Patient is awake, alert. He is pleasant to talk with. He is currently in no respiratory distress. Notes he is feeling better. HEENT: Normocephalic. NECK: Supple. CARDIOVASCULAR: Regular rate. CHEST: Clear. ABDOMEN: Soft, diffusely but mildly tender. EXTREMITIES: Moves all extremities. NEUROLOGIC: No changes. LABORATORY: PH 7.1, pCO2 15, PO2 115. Sodium 126, potassium 6.3. Currently sodium 136 and potassium 4.0. A1c of 15. ASSESSMENT: 1. Urinary tract infection. 2. Diabetes with very poor home control, with an A1c of 15. 3. Hyponatremia, resolved currently. 4. Hyperkalemia, resolved. 5. Metabolic acidosis due to DKA, improved. 6. Hypertension. PLAN: We will continue patient in the hospital. We will stop his insulin drip, place him on Lantus. We will continue to follow. Use IV fluids. Antibiotics for his urinary tract infection. Discussed with patient the importance of blood sugar control. cc: Marcel Ford MD
[2018-08-30] MEDS: HUMALOG (PARKWAY) SUBQ SCH ×4 (06:34→20:26)
[2018-08-30] MEDS: PROTONIX IV SCH ×2 (06:34→23:08)
--- NOTE | 2018-08-30 10:15 | EKG Report ---
Test Performed on : 08/28/2018 10:28:31 PM Test Reason : >500 Blood Pressure : / mmHG Vent. Rate : 092 BPM Atrial Rate : 092 BPM P-R Int : 162 ms QRS Dur : 076 ms QT Int : 390 ms P-R-T Axes : 067 -13 059 degrees QTc Int : 482 ms Normal sinus rhythm. Prolonged QT Abnormal ECG No previous ECGs available Unconfirmed Result
[2018-08-30] MEDS: ROCEPHIN 1 GM in NS 50 ML IV SCH (10:45)
[2018-08-30] MEDS: HUMULIN 70/30 (PARKWAY) SUBQ SCH ×2 (10:51→17:51)
--- NOTE | 2018-08-30 11:46 | PROVIDER DOCUMENTATION ---
This chart was entered by Asya Mederos Scribe, acting as scribe for Neel Lubin MD. HPI-General Adult - General Chief Complaint: High Blood Sugar Stated Complaint: HIGH BLOOD SUGAR Time Seen by Provider: 08/28/18 20:29 Source: patient Allergies/Adverse Reactions: Patient Allergies Allergy/AdvReac Type Severity Reaction Status Date / Time No Known Allergies Allergy Verified 07/08/18 13:52 Home Medications: Home Medication List Medication Instructions Recorded Confirmed Last Taken Type Insulin Humulin 70/30 [Humulin 30 unit SUBQ QAM #1 insuln.pen 07/15/18 08/29/18 Unknown Rx 70/30] Insulin Humulin 70/30 [Humulin 20 unit SUBQ QHS 08/29/18 08/29/18 Unknown History 70/30] - History of Present Illness -Gen Adult Nature of Presenting Problems: Pt is 53/m presenting to ED W/ blood sugar greater than 400 at home took 15 units of reg. insulin. He sts that he is very weak, has N/Vx3. Pt was at [facility] yesterday w/ c/p and was dx w/ acid reflux. Denies any chest pain today. Location of Pain/Injury: reports: generalized Pain Radiation: reports: no radiation Quality of Pain: reports: none Severity: reports: moderate Onset/Duration: reports: this afternoon Timing: reports: still present Context/Activities at Onset: reports: none Modifying Factors: improves with: nothing Associated Symptoms: reports: nausea, vomiting. denies: cough, diarrhea, dizziness, fever/chills, shortness of breath Similar Symptoms Previously?: No Recently seen or treated by another doctor?: No Review of Systems - Adult - REVIEW OF SYSTEMS - ADULT Constitutional: reports: chills Eyes: reports: blurred vision Ears, Nose, Mouth & Throat: reports: no symptoms reported Cardiovascular: reports: chest pain (yesterday, no chest pain today) Respiratory: reports: no symptoms reported Gastrointestinal: reports: see HPI Genitourinary: reports: dysuria Musculoskeletal: reports: no symptoms reported Integumentary: reports: no symptoms reported Past History - Adult - PAST MEDICAL HISTORY-ADULT Review of Records: reports: Old Records Reviewed, Nursing Assessment Review, Medications Reviewed, Social history reviewed & non-contributory. Major Childhood Illnesses: reports: denies history Cardiovascular: reports: HTN Respiratory: reports: asthma Gastrointestinal: reports: denies history Obstetrical/Gynecological: reports: denies history Genitourinary: reports: kidney disease, kidney stones, stenosis/obstruction, chronic UTI's Musculoskeletal: reports: chronic pain Neurological: reports: denies history Psychiatric: reports: anxiety Endocrine/Immune: reports: Diabetes Other Conditions: reports: denies history - PRIOR SURGERIES/PROCEDURES Surgical/Procedure History: reports: reviewed, not pertinent, other (prostate) - IMMUNIZATION STATUS Childhood Immunizations: See Nurse Assessment Flu Vaccine: See Nurse Assessment - FAMILY HISTORY Family History: reviewed, not pertinent Physical Exam-General - CONSTITUTIONAL General Appearance: alert, mild distress - EYES Eyes: PERRL/EOMI - HEAD, EARS, NOSE, MOUTH & THROAT HENMT: normocephalic/atraumatic, pharynx normal, other (slightly dry mucus membrane) - NECK Neck: non-tender, full range of motion, supple - RESPIRATORY Respiratory: lungs clear, normal breath sounds - CARDIOVASCULAR Cardiovascular: regular rate, rhythm, no edema - GASTROINTESTINAL (ABDOMEN) Abdominal Exam: normal bowel sounds, non tender, soft - MUSCULOSKELETAL Back Exam: normal inspection, no CVA tenderness, no vertebral tenderness - NEUROLOGIC Neurologic: grossly normal, no motor/sensory deficits - PSYCHIATRIC Psych/Mental Status: normal thought content, normal thought process, oriented x 3 Progress - PLAN OF CARE/RESULTS Progress/Plan/Lab Results: Vital Signs - 8 hr 08/28/18 20:15 08/28/18 20:40 Pulse Rate 102 H 93 H Respiratory Rate 20 28 H Blood Pressure 112/69 143/89 O2 Sat by Pulse Oximetry 99 93 L Laboratory Results - last 24 hr 08/28/18 08/28/18 08/28/18 20:18 20:30 20:31 WBC RBC Hgb Hct MCV MCH MCHC RDW Std Deviation Plt Count MPV Immature Gran % (Auto) Neut % (Auto) Lymph % (Auto) Loving % (Auto) Eos % (Auto) Baso % (Auto) Immature Gran # (Auto) Neut # (Auto) Lymph # (Auto) Loving # (Auto) Eos # (Auto) Baso # (Auto) Specimen Type ARTERIAL Sample Site R RADIAL pH 7.19 L* pCO2 15 L* pO2 115 H HCO3 9.1 L Base Excess -20.2 L Oxyhemoglobin 96.0 ABG O2 Sat (Calculated) 16.6 ABG O2 Saturation 99.1 ABG Carboxyhemoglobin 2.00 ABG Methemoglobin 1.1 Christ Test YES A-a O2 Difference 16.0 Total Hemoglobin 12.2 Lactate 1.70 Blood Gas Modality ROOM AIR FiO2 % 21.0 POC Glucose 500 H D Urine Source CATH Urine Color ANNEMARIE Urine Clarity VERY CLOUDY A Urine pH 6.5 Ur Specific [place] 1.020 Urine Protein 3+(500 mg/dL) A Urine Ketones 3+(Large) A Urine Blood 4+ Urine Nitrite POSITIVE A Urine Bilirubin NEGATIVE Urine Urobilinogen NORMAL Urine Microscopic RBC 10-20 A Urine WBC 2+ A Urine Microscopic WBC TNTC A Ur Epithelial Cells <10 Urine Crystals NONE SEEN Urine Bacteria 4+ Urine Casts NONE SEEN Urine Yeast PRESENT Urine Glucose 3+(500 mg/dL) A 08/28/18 20:38 WBC 6.14 RBC 4.38 L Hgb 11.5 L Hct 36.3 L MCV 82.9 MCH 26.3 L MCHC 31.7 L RDW Std Deviation 14.8 H Plt Count 478 H MPV 9.4 Immature Gran % (Auto) 0.3 Neut % (Auto) 74.6 Lymph % (Auto) 17.4 L Loving % (Auto) 5.9 Eos % (Auto) 1.0 Baso % (Auto) 0.8 Immature Gran # (Auto) 0.02 Neut # (Auto) 4.58 Lymph # (Auto) 1.07 L Loving # (Auto) 0.36 Eos # (Auto) 0.06 Baso # (Auto) 0.05 Specimen Type Sample Site pH pCO2 pO2 HCO3 Base Excess Oxyhemoglobin ABG O2 Sat (Calculated) ABG O2 Saturation ABG Carboxyhemoglobin ABG Methemoglobin Christ Test A-a O2 Difference Total Hemoglobin Lactate Blood Gas Modality FiO2 % POC Glucose Urine Source Urine Color Urine Clarity Urine pH Ur Specific [place] Urine Protein Urine Ketones Urine Blood Urine Nitrite Urine Bilirubin Urine Urobilinogen Urine Microscopic RBC Urine WBC Urine Microscopic WBC Ur Epithelial Cells Urine Crystals Urine Bacteria Urine Casts Urine Yeast Urine Glucose Orders Category Date Time Status Cardiac Monitoring DIRECTED Care 08/28/18 20:24 Active Finger Stick Blood Sugar (ED) DIRECTED Care 08/28/18 20:21 Active Saline Loc NOW Care 08/28/18 20:24 Active NPO Diet 08/29/18 16:00 Active ABG [RESP] Routine Lab 08/28/18 20:31 Completed ACETONE SERUM [CHEM] Stat Lab 08/28/18 20:38 Received AMYLASE [CHEM] Stat Lab 08/28/18 20:38 Received BLOOD CULTURE [BLDCUL] Stat Lab 08/28/18 21:03 Uncollected CBC WITH DIFF [HEME] Stat Lab 08/28/18 20:38 Completed COMPREHENSIVE METABOLIC PANEL [CHEM] Stat Lab 08/28/18 20:38 Received LACTATE, PLASMA [CHEM] Stat Lab 08/28/18 21:00 Uncollected LIPASE [CHEM] Stat Lab 08/28/18 21:00 Ordered MAGNESIUM [CHEM] Stat Lab 08/28/18 21:00 Ordered PHOSPHORUS [CHEM] Urgent Lab 08/28/18 20:38 Received TROPONIN T Stat Lab 08/28/18 20:[address] W/POSS RFLX CULT [URINALYSIS] Stat Lab 08/28/18 20:30 Completed URINE CULTURE [RM] Routine Lab 08/28/18 20:45 Ordered URINE DRUG SCREEN PL Stat Lab 08/28/18 20:30 Received 0.9% Sodium Chloride Inj [Ns] 1,000 ml Med 08/28/18 20:35 Active IV 999 mls/hr 0.9% Sodium Chloride Inj [Ns] 100 ml Med 08/28/18 21:00 Active Insulin Human Regular ([place] [Humulin R ([place])] 100 units IV As Directed mls/hr CefTRIAXONE [Rocephin] 1 gm Med 08/28/18 20:44 Active 0.9% Sodium Chloride Inj [Ns] 50 ml IV NOW Insulin Human Regular ([place] [Humulin R ([place])] Med 08/28/18 20:59 Discontinued 100 units .ROUTE .STK-MED ONE Insulin Human Regular ([place] [Humulin R ([place])] Med 08/28/18 20:36 Discontinued 5 units IV NOW ONE Ondansetron [Zofran] Med 08/28/18 20:46 Discontinued 8 mg IM NOW ONE EKG [EKG] Stat Ther 08/28/18 20:21 Ordered Charge nurse provided me with the paper protocol, I filled out the protocol and gave it to the charge nurse, charge nurse informed me that patient management will be per paper protocol. protocol explained to the nurse Calculated corrected Na is 139 Result Diagrams: 08/28/18 20:38 08/29/18 07:50 - REASSESSMENT Reassessment #1 Time Reassessed: 21:15 Status: improving Reassessment Comment: Pt sts that he is feeling a bit better at this time. Reassessment #2 Time Reassessed: 21:26 Status: unchanged (K 6.3, I asked the nurse to do the EKG.) Reassessment #3 Time Reassessed: 22:26 Status: improving (Patient feels better, nurse informed to do BMP every 2 Hours per protocol.) Reassessment #4 Time Reassessed: 23:03 Status: unchanged Reassessment #5 Time Reassessed: 01:32 Status: improving (Anion gap improved, patient is sleeping) - EKG 1 Time of EKG reading by physician:: 22:36 EKG Read and Signed by:: Lazaro Hendrickson EKG Interpretation (*Must complete 3 of following elements*): Abnormal (normal sinus rhythm prolonged QT, Abnormal ECG) Rate: 92 Rhythm: normal sinus [place]: normal QRS: normal - CONSULTS/PCP/HOSPITALIST Notification #1 *Consult/PCP/Hospitalist*: DR. DEGROOT Time Discussed: 22:43 Consult Disposition: Admit (Hx, PE and patient care discussed with DR. DEGROOT, accepted.) Departure - Departure Date of Disposition Decision: 08/28/18 Time of Disposition Decision: 22:41 DIAGNOSIS: YENNIFER (acute kidney injury), Hyperkalemia DKA (diabetic ketoacidoses) Qualifiers: Diabetes mellitus type: other specified (including NIGHAT) Diabetes mellitus c omplication detail: without coma Qualified Code(s): E13.10 - Other specified diabetes mellitus with ketoacidosis without coma UTI (urinary tract infection) Qualifiers: Urinary tract infection type: site unspecified Hematuria presence: without hematuria Qualified Code(s): N39.0 - Urinary tract infection, site not specified Disposition: ADMITTED INPATIENT 09 Certified Medical Emergency: Emergent Condition: Serious - Critical Care Note This patient required my direct & personal management of CC.: No Attestation - Physician/ PAULA Attestation Patient care was provided by Advanced Practice Provider:: No The physician spent face to face time with patient:: Yes Advanced Practice Provider documentation review:: Supervising physician onsite and consulted in the evaluation and care of this patient. The physician did have a face to face encounter with the patient. This chart was documented by the indicated scribe, (Aysa Mederos, Shelbi) and accurately reflects the services I performed and decisions made by me, Neel Madsen MD, as attested by the provider's signature.
--- NOTE | 2018-08-30 12:11 | PROGRESS NOTE ---
DATE: 08/30/2018 SUBJECTIVE: The patient still feels weak, but no other major complaints. OBJECTIVE: Vitals: Blood pressure is 112/72, heart rate 66, respiratory rate 18, temperature 100.5 degrees, which is new. Cardiovascular: Regular rate and rhythm. Pulmonary: Bilateral breath sounds clear to auscultation. GI: Was soft, nontender, nondistended. Bowel sounds were positive. LABORATORY DATA: White count is normal. Sugars are down to 352. His last basic, his gap was 11 and his bicarb was 20, creatinine was 1.7. PROBLEMS: 1. Diabetic ketoacidosis that has since resolved. The patient reports he is just taking regular insulin. He does not have very much left. He is supposed to be on 70-30, but he has not been able to get his medications unfortunately. 2. Fever. He did not have a white count. Really no focal symptoms. He does have a fever today, so we will analyze. It looks like he has got a urinary tract infection though, so that is probably what has caused some of his issues. We will continue Rocephin for now and follow. 3. Acute kidney injury. We will continue IV fluids and follow. Hold any nephrotoxic medications. 4. Disposition. We will transfer him to the floor. Work with social work to try to give him assistance with this medicines, and we will continue to follow up. cc: Lee Archibald MD
--- NOTE | 2018-08-30 12:22 | Diag Imaging Result Doc PS360 ---
FLAT/UPRIGHT ABD/1 VIEW CHEST - 08/30/2018 INDICATION: fever TECHNIQUE: COMPARISON: None FINDINGS: The chest is clear. There is moderate diffuse constipation throughout the colon and rectum. No small bowel obstruction. No free air or abnormal calcifications. IMPRESSION: Diffuse constipation. Electronically signed by Dago Rod 08/30/2018 12:20 PM
[2018-08-30] MEDS: TYLENOL PO PRN (20:30)
[2018-08-31] MEDS: TYLENOL PO PRN (03:46)
[2018-08-31 05:11] VITALS: BP 116/73
[2018-08-31] MEDS: HUMALOG (PARKWAY) SUBQ SCH ×2 (06:20→12:20)
[2018-08-31 07:18] LABS: BASO# 0.01 X1000 (0.0-0.2); BASO% 0.3 % (0.0-0.8); EOS# 0.12 X1000 (0.0-0.7); EOS% 3.2 % (0.0-10.0); HEMATOCRIT 30.2 % (42.0-52.0); HEMOGLOBIN 9.5 g/dL (14.0-18.0); IMM GRAN# 0.01 X1000 (0.0-0.04); IMM GRAN% 0.3 % (0.0-0.5); LYMPH# 0.57 X1000 (1.2-3.4); MCH 25.5 PG (27-31); MCHC 31.5 g/dL (33-37); MONO# 0.37 X1000 (0.11-0.59); MONO% 9.7 % (1.7-9.3); MPV 9.3 FL (7.4-10.4); NEUT# 2.72 X1000 (1.4-6.5); NEUT% 71.5 % (42.2-75.2); PLT 276 X1000 (130-400); RBC 3.73 XMIL (4.7-6.1); RDW 14.7 % (11.5-14.5)
[2018-08-31 07:31] LABS: CREATININE 1.3 mg/dL (0.7-1.2)
[2018-08-31] MEDS: HUMULIN 70/30 (PARKWAY) SUBQ SCH (09:59)
[2018-08-31] MEDS: ROCEPHIN 1 GM in NS 50 ML IV SCH (10:35)
[2018-08-31] MEDS ORDERED: DIFLUCAN PO ONE (11:53)
[2018-08-31] MEDS ORDERED: HUMULIN 70/30 (PARKWAY) SUBQ ONE (11:57)
[2018-08-31] MEDS: MIRALAX PO SCH ×2 (12:52→12:57)
--- NOTE | 2018-08-31 14:39 | DISCHARGE SUMMARY ---
ADMISSION DATE: 08/28/2018 DISCHARGE DATE: DISCHARGE DIAGNOSES: 1. DKA. 2. Fever with unknown origin although it looks like he has funguria. 3. Acute kidney injury. HISTORY: Patient is doing well. No major complaints. Sugars have stabilized. On the day of discharge, his sugars have been in the 120s to 200s. I feel stable for discharge on his current medications which is 70/30 mix, 30 in the morning and 20 at night. Plan is I am going to treat his funguria. We do not typically do that but since he is a poorly controlled diabetic, and he has complaints of dysuria and bladder fullness, his UA showed gross pyuria, I am going to go and give him a course of Diflucan. Discharge condition is stable. He will be discharged on 70/30 20 units at night, 30 units in the morning and Diflucan 100 daily. DISCHARGE DIAGNOSES: 1. Diabetic ketoacidosis. 2. Fungal cystitis. cc: Lee Archibald MD
[2018-08-31] MEDS ORDERED: PROTONIX PO SCH (21:00)
== END 2018-08-31 13:54 | disposition home or self-care (01) | DRG 638 ==
LOC: P.ED 20:14 → P.EDIPHOLD 23:08 → SUATTDRO 23:08 → P.ICU 08-29 01:54 → P.MEDSURG 08-30 14:04
PROVIDERS: ATTEND Internal Medicine
CPT/HCPCS: 36415; 74022; 80048; 80053; 80104; 80301; 80305; 81001; 82009; 82150; 82805; 82948; 83036; 83605; 83690; 83735; 84100; 84484; 85025; 87040; 87088; 93005; 96361; 96365; 96375; 99285; A9270; C9113; G0431; G0434; G0477; J0696; J1815; J2270; J2405; J3480; J7030; J7042; S0164; XXXXX

== ENCOUNTER 2018-09-03 11:48 | Inpatient (IN) ==
[2018-09-03] MEDS ORDERED: NS 1,000 ML IV ONE ×2 (11:53→13:36)
[2018-09-03 12:08] LABS: BE -4.4 mmoll (-3.0-3.0); BLOOD TYPE ARTERIAL; HCO3-(ACT) 21.5 mmoll (20.0-26.0); O2HB 96.2 % (95.0-99.0); PCO2(98.6) 31 mmHg (35-45); PO2(98.6) 101 mmHg (60-100); SAMPLE BLOOD; THB 8.7 g/dL (11.5-17.4); pH(98.6) 7.41 (7.35-7.45)
[2018-09-03 12:15] LABS: ALLEN TEST YES; MODALITY ROOM AIR
[2018-09-03 12:26] LABS: BILIRUBIN URINE NEGATIVE (NEGATIVE); BLOOD URINE 4+ (NEGATIVE); CLARITY SL. CLOUDY (CLEAR); COLOR YELLOW; KETONE URINE TRACE mg/dL (NEGATIVE); LEUKOCYTES URINE 2+ (NEGATIVE); NITRITE URINE NEGATIVE (NEGATIVE); PH URINE 6.5; PROTEIN URINE TRACE mg/dL (NEGATIVE); SP GRAVITY URINE 1.005; UROBILINOGEN URINE NORMAL
[2018-09-03 12:29] LABS: BASO# 0.01 X1000 (0.0-0.2); BASO% 0.2 % (0.0-0.8); EOS% 2.2 % (0.0-10.0); HEMATOCRIT 25.5 % (42.0-52.0); HEMOGLOBIN 7.9 g/dL (14.0-18.0); IMM GRAN# 0.01 X1000 (0.0-0.04); IMM GRAN% 0.2 % (0.0-0.5); LYMPH# 0.73 X1000 (1.2-3.4); LYMPH% 15.8 % (20.5-51.1); MCH 25.3 PG (27-31); MCV 81.7 FL (81-99); MONO% 8.7 % (1.7-9.3); NEUT# 3.37 X1000 (1.4-6.5); NEUT% 72.9 % (42.2-75.2); PLT 266 X1000 (130-400); RBC 3.12 XMIL (4.7-6.1); RDW 14.9 % (11.5-14.5); WBC 4.62 X1000 (4.8-10.8)
[2018-09-03 12:31] LABS: URINE EPITHELIAL CELLS <10 /HPF (<10); URINE RBC TNTC /HPF (<10); URINE SOURCE CLEAN CATCH
[2018-09-03 12:35] LABS: UR AMPHETAMINES QUAL NONE DETECTED (NONE DETECT); UR BARBITUATES QUAL NONE DETECTED (NONE DETECT); UR BENZODIAZEPIN QUAL NONE DETECTED (NONE DETECT); UR COCAINE QUAL NONE DETECTED (NONE DETECT); UR METHADONE QUAL NONE DETECTED (NONE DETECT); UR METHAMPHETAMINE QUAL NONE DETECTED (NONE DETECT); UR OPIATES QUAL NONE DETECTED (NONE DETECT); UR OXYCODONE QUAL NONE DETECTED (NONE DETECT); UR PCP QUAL NONE DETECTED (NONE DETECT)
[2018-09-03 12:36] LABS: UR CANNABINOIDS QUAL NONE DETECTED (NONE DETECT); UR PROPOXYPHENE QUAL NONE DETECTED (NONE DETECT); UR TCA QUAL NONE DETECTED (NONE DETECT)
[2018-09-03 12:45] LABS: CALCIUM 7.7 mg/dL (8.8-10.2); CREATININE 1.4 mg/dL (0.7-1.2); MAGNESIUM 1.8 mg/dL (1.5-2.7); PHOSPHORUS 4.4 mg/dL (2.7-4.5); POTASSIUM 5.5 mmol/L (3.5-5.1); TOTAL BILIRUBIN 0.2 mg/dL (0.20-1.00); TOTAL PROTEIN 6.2 g/dL (6.3-8.3)
[2018-09-03] MEDS ORDERED: HUMULIN R (PARKWAY) 100 UNITS in NS 100 ML IV SCH ×2 (12:45→17:00)
[2018-09-03] MEDS ORDERED: HUMULIN R (PARKWAY) IV ONE (12:45)
--- NOTE | 2018-09-03 12:45 | Diag Imaging Result Doc PS360 ---
CHEST-2 VIEWS - 09/03/2018 INDICATION: dizziness, high fsbs COMPARISON: 08/30/2018 FINDINGS: The lungs are normally expanded and clear. Heart size and mediastinal contours are normal. No pneumothorax or pleural effusion. IMPRESSION: Negative exam. Electronically signed by Dago Rod 09/03/2018 12:43 PM
[2018-09-03] MEDS ORDERED: CIPRO 400 MG/D5W 400 MG/200 ML IVPB IV ONE (12:49)
--- NOTE | 2018-09-03 13:05 | PROVIDER DOCUMENTATION ---
This chart was entered by Donna Silveira Scribe, acting as scribe for Nieves Cassidy CRNP. HPI-General Adult - General Chief Complaint: High Blood Sugar Stated Complaint: dizziness, high blood sugar Time Seen by Provider: 09/03/18 11:49 Source: patient Allergies/Adverse Reactions: Patient Allergies Allergy/AdvReac Type Severity Reaction Status Date / Time No Known Allergies Allergy Verified 09/03/18 11:52 Home Medications: Home Medication List Medication Instructions Recorded Confirmed Last Taken Type Insulin Humulin 70/30 [Humulin 30 unit SUBQ QAM #1 insuln.pen 07/15/18 08/29/18 Unknown Rx 70/30] Insulin Humulin 70/30 [Humulin 20 unit SUBQ QHS 08/29/18 08/29/18 Unknown History 70/30] Fluconazole [Diflucan] 100 mg PO DAILY #7 tab 08/31/18 Unknown Rx - History of Present Illness -Gen Adult Nature of Presenting Problems: Patient is a 53 year old male who presents to the ED via EMS with dizziness and weakness. Patient states he ate a gravy and biscuit this morning then started having symptoms. Patient states his blood sugar was normal prior to eating breakfast. Reports eating a biscuit and gravy this morning for breakfast. Patient states checking his blood sugar when symptoms started and the blood sugar meter read as high. Patient does not report nausea or vomiting. Location of Pain/Injury: reports: none Pain Radiation: reports: no radiation Quality of Pain: reports: none Severity: reports: mild Onset/Duration: reports: this morning Timing: reports: still present Context/Activities at Onset: reports: light activity Modifying Factors: improves with: nothing Associated Symptoms: reports: dizziness, weakness Similar Symptoms Previously?: Yes Recently seen or treated by another doctor?: Yes - Diabetes Related Context Context: reports: high blood sugar Review of Systems - Adult - REVIEW OF SYSTEMS - ADULT Constitutional: reports: no symptoms reported Eyes: reports: no symptoms reported Ears, Nose, Mouth & Throat: reports: no symptoms reported Cardiovascular: reports: no symptoms reported Respiratory: reports: no symptoms reported Gastrointestinal: reports: no symptoms reported Genitourinary: reports: no symptoms reported Musculoskeletal: reports: muscle weakness. denies: back pain, neck pain Integumentary: reports: no symptoms reported Neurological: reports: dizziness/vertigo (dizziness). denies: headache/migraines, numbness, seizure, syncope Psychiatric: reports: no symptoms reported Endocrine: reports: no symptoms reported Hematologic/Lymphatic: reports: no symptoms reported Allergic/Immunologic: reports: no symptoms reported All Other Systems: Reviewed and Negative Past History - Adult - PAST MEDICAL HISTORY-ADULT Review of Records: reports: Nursing Assessment Review, Medications Reviewed, Social history reviewed & non-contributory. Major Childhood Illnesses: reports: denies history Cardiovascular: reports: HTN Respiratory: reports: asthma Gastrointestinal: reports: denies history Obstetrical/Gynecological: reports: denies history Genitourinary: reports: kidney disease, kidney stones, stenosis/obstruction, chronic UTI's Musculoskeletal: reports: chronic pain Neurological: reports: denies history Psychiatric: reports: anxiety Endocrine/Immune: reports: Diabetes Other Conditions: reports: denies history - PRIOR SURGERIES/PROCEDURES Surgical/Procedure History: reports: reviewed, not pertinent, other (prostate) - IMMUNIZATION STATUS Childhood Immunizations: See Nurse Assessment Flu Vaccine: See Nurse Assessment - FAMILY HISTORY Family History: reviewed, not pertinent - SOCIAL HISTORY Smoking: denies Substance Use: denies Physical Exam-General - PHYSICAL EXAM-ADULT Initial Vital Signs Reviewed: Yes - CONSTITUTIONAL General Appearance: alert, no apparent distress - HEAD, EARS, NOSE, MOUTH & THROAT HENMT: moist mucous membranes - NECK Neck: non-tender, normal inspection - RESPIRATORY Respiratory: chest non-tender, lungs clear, normal breath sounds - CARDIOVASCULAR Cardiovascular: normal peripheral pulses, regular rate, rhythm - GASTROINTESTINAL (ABDOMEN) Abdominal Exam: normal bowel sounds, non tender, soft - MUSCULOSKELETAL Back Exam: normal inspection Extremity: non-tender, normal inspection - SKIN Integumentary: normal color, normal turgor, warm/dry - NEUROLOGIC Neurologic: grossly normal - PSYCHIATRIC Psych/Mental Status: normal mood/affect, oriented x 3 Progress - PLAN OF CARE/RESULTS Progress/Plan/Lab Results: Vital Signs - 8 hr 09/03/18 11:48 Temperature 98.8 F Pulse Rate 76 Respiratory Rate 14 Blood Pressure 123/77 O2 Sat by Pulse Oximetry 98 Orders Category Date Time Status FSBS [Finger Stick Blood Sugar (ED)] DIRECTED Care 09/03/18 11:50 Active CHEST-2 VIEWS [RAD] Stat Exams 09/03/18 11:50 Ordered ABG [RESP] Routine Lab 09/03/18 11:50 Ordered CBC WITH DIFF [HEME] Stat Lab 09/03/18 11:50 Uncollected COMPREHENSIVE METABOLIC PANEL [CHEM] Stat Lab 09/03/18 11:50 Uncollected LACTATE, PLASMA [CHEM] Stat Lab 09/03/18 11:53 Uncollected LIPASE [CHEM] Stat Lab 09/03/18 11:52 Uncollected MAGNESIUM [CHEM] Stat Lab 09/03/18 11:53 Uncollected PHOSPHORUS [CHEM] Stat Lab 09/03/18 11:53 Uncollected TROPONIN T Stat Lab 09/03/18 11:[address] W/POSS RFLX CULT [URINALYSIS] Stat Lab 09/03/18 11:50 Uncollected URINE DRUG SCREEN PL Stat Lab 09/03/18 11:52 Uncollected 0.9% Sodium Chloride Inj [Ns] 1,000 ml Med 09/03/18 11:53 Active IV 999 mls/hr Result Diagrams: 09/03/18 12:15 09/03/18 12:15 - REASSESSMENT Reassessment #1 Time Reassessed: 13:04 (reviewed results with pt and plan for admission. Pt states he wishes to go home. Educated pt that this is not in his best interest and need for admission. Pt agrees to admission.) - XRAY 1 XRAY Study: Chest Impression: See EMR Report (The lungs are normally expanded and clear. Heart size and mediastinal contours are normal. No pneumothorax or pleural effusion. IMPRESSION: Negative exam. Electronically signed by Dago Rod 09/03/2018 12:43 PM 09/03/18 1243 Interpreting Physician: Dago Rod MD Dictated Date/Time: 09/03/18 1241 cc: Nieves Cassidy; None,PCP) - CONSULTS/PCP/HOSPITALIST Notification #1 *Consult/PCP/Hospitalist*: Dr Graham, hospitalist Time Discussed: 12:57 Consult Disposition: Admit Departure - Departure Date of Disposition Decision: 09/03/18 Time of Disposition Decision: 12:52 DIAGNOSIS: Hyperglycemia, Complicated UTI (urinary tract infection), Hyperkalemia Disposition: ADMITTED INPATIENT 09 Certified Medical Emergency: Emergent Condition: Fair Referrals and Follow-Ups: None,PCP [Primary Care Provider] - - Critical Care Note This patient required my direct & personal management of CC.: No Attestation - Physician/ PAULA Attestation Patient care was provided by Advanced Practice Provider:: Yes Advanced Practice Provider:: iNeves Cassidy Advanced Practice Provider documentation review:: The Mid-level provider documentation, treatment plan and medical decision making was reviewed by the physician who agrees with all treatment and medical decision making by the MLP. The physician spent face to face time with patient:: No Advanced Practice Provider documentation review:: Supervising physician onsite and consulted in the evaluation and care of this patient. The physician did not have a face to face encounter with the patient. This chart was documented by the indicated scribe, (Donna Silveira Scribe) and ac curately reflects the services I performed and decisions made by me, Nieves Cassidy, MONIE, as attested by the provider's signature.
--- NOTE | 2018-09-03 15:05 | HISTORY AND PHYSICAL ---
PRIMARY CARE PHYSICIAN: Listed as none. CHIEF COMPLAINT: High blood sugar. HISTORY OF PRESENTING ILLNESS: This is a 53-year-old male who presents to [facility] ER via EMS with complaints of dizziness and weakness. He is noted to have been discharged from this facility on 08/31/2018 after having DKA and a fever of unknown origin that looked as if he had a funguria and an acute kidney injury that had resolved. He states that today he was at work and ate a gravy and biscuit this morning and then began having the symptoms. States his blood sugar was normal prior to eating breakfast and then after he ate breakfast, he checked his blood sugar and it read as high. He denies having any nausea or vomiting. When he arrived to the emergency room his workup showed a sodium of 126, potassium of 5.5, chloride 94, CO2 19, BUN of 34, with a creatinine of 1.4, glucose was 668. His urinalysis showed 2+ white blood cells and no bacteria. His acetone level was read as negative. His urine drug screen showed none detected. So, he will be admitted to the intensive care unit. We are going to place him on the DKA protocol for the insulin and labs even though he is not currently in a DKA. PAST MEDICAL HISTORY: Diabetes type 2, uncontrolled. Hemoglobin A1c 15 in 08/2018, kidney stones, chronic UTIs, chronic anxiety and hypertension. PAST SURGICAL HISTORY: Prostate surgery. FAMILY HISTORY: Reviewed and noncontributory. SOCIAL HISTORY: He lives at home. Denies any tobacco, alcohol or illicit drug use. ALLERGIES: He has no known drug allergies. HOME MEDICATIONS: We need to obtain a current list and reconcile that we will review and restart as appropriate. I will place an order for nursing to update and confirm home medications. LABORATORY DATA: Showed a white blood cell count of 4.62, hemoglobin 7.9, hematocrit 25.5, platelets 266,000. ABG showed a pH of 7.41, pCO2 of 31, PO2 101, bicarb 21.5. This was on room air. Sodium 126, potassium 5.5, chloride 94, CO2 of 19, anion gap was 14, BUN of 34, creatinine 1.4, glucose was 668, magnesium of 1.8. Troponin was less than 0.010. Lipase 44. Plasma lactate 0.7. Urinalysis with negative nitrites, 2+ white blood cells, no bacteria. Urine drug screen was negative. Serum acetone level was negative. Chest x-ray showed a negative exam. REVIEW OF SYSTEMS: He denied any fever, chills, blurred vision. He was positive for some dizziness and weakness. Denied any abdominal pain, constipation, diarrhea, burning or hurting with urination, chest pain, coughing, shortness of breath. PHYSICAL EXAMINATION: VITAL SIGNS: On arrival he had a temperature of 98.8 degrees, pulse 76, respirations 14, blood pressure 123/77, saturating 98% on room air. GENERAL: This is a 53-year-old male who is sitting up in the bed and answers questions appropriately. HEENT: Normocephalic, atraumatic. Normal ENT inspection. Oropharynx and nares are clear. EYES: Pupils are equal, round, reactive to light and accommodation. Extraocular movements are intact. NECK: Normal inspection. Normal range of motion. LUNGS: Clear to auscultation bilaterally with equal lung expansion and chest wall movement. HEART: With regular rate and rhythm. No murmurs, rubs, or gallops. ABDOMEN: Soft, nontender, nondistended. Bowel sounds are present x4 quadrants. MUSCULOSKELETAL: He has 5/5 strength x4 extremities. NEUROLOGICAL: The cranial nerves 2-12 are grossly intact. ASSESSMENT: 1. Diabetes type 2 with hyperglycemia, uncontrolled. 2. Hyperosmolar nonketonic diabetes. 3. Urinary tract infection. 4. Medical noncompliance. PLAN: He is going to be admitted to the intensive care unit. Placed on our DKA protocol for the insulin drip and fingerstick blood sugars per the protocol. Labs per the protocol. Placed on Levaquin 500 mg IV q.24, Zofran 4 mg IV q.4 hours p.r.n., diabetic diet. We will recheck a CBC in the a.m. and further orders after being seen by attending. Again, we will have nursing to update and confirm his home medications and then review and restart as appropriate. Patient seen and examined by me face to face, all the laboratory, vitals signs and images were reviewed, patient presented to the ED complaining of dizziness, he was recently discharged a few days ago and as per the patient he was taking his medications as prescribed, and started having dysuria again the same day, he is not complaining of shortness of breath or chest pain, his blood sugar is really high, no DKA, I will put him on an insulin drip, monitor in the ICU, I will get a new urine culture, I agree with the rest of the PERSONAL INSURANCE ADVISOR's assessment and plan, Aaron Geiger MD. Dictated by MONIE Oscar for Aaron Centeno MD cc: MONIE Oscar MD [facility]
--- NOTE | 2018-09-03 15:17 | HISTORY AND PHYSICAL ---
ADDENDUM: The patient is seen and examined by me [id number]. All the laboratory, vital signs, and images were reviewed. The patient presented to the emergency department with a chief complaint of dizziness, generalized weakness. This patient had been discharged 3 days ago from this hospital. He was discharged home with insulin and Diflucan for a urine infection/yeast infection. As per the patient, after discharge his urine has been getting more dark, he is getting more dizzy and also weak. He is still having some burning sensation when he urinates, and he noticed that his blood sugar was really high. He is not complaining of nausea, vomiting, but on my physical exam, he seems to be dehydrated. He is not complaining of pain either. He will receive normal saline boluses. He will be placed on an insulin protocol since his blood sugar has been more than 600. He will be transferred to the ICU for better management of this drip. He is completely alert and oriented x3. He has bladder dysfunction, so he needs to catheterize himself multiple times a day, and we will do that here as well. We will put this patient on levofloxacin. I will put him back on fluconazole p.o. daily. I will repeat the urine culture as well. I agree with the rest of the nurse practitioner's assessment and plan. cc: Aaron Centeno MD
[2018-09-03] MEDS ORDERED: TYLENOL PO PRN (15:21)
[2018-09-03] MEDS ORDERED: ZOFRAN IV PRN (15:21)
[2018-09-03] MEDS ORDERED: LEVAQUIN 500 MG in NS 100 ML IV SCH (16:00)
[2018-09-03] MEDS ORDERED: 1/2 NS 1,000 ML IV SCH (16:15)
[2018-09-03] MEDS ORDERED: D50W SYRINGE IV PRN (16:15)
[2018-09-03] MEDS ORDERED: D5 1/2 NS 1,000 ML IV PRN (16:23)
[2018-09-03 17:08] LABS: CALCIUM 8.2 mg/dL (8.8-10.2); CREATININE 1.5 mg/dL (0.7-1.2); MAGNESIUM 1.8 mg/dL (1.5-2.7); PHOSPHORUS 3.4 mg/dL (2.7-4.5); POTASSIUM 5.2 mmol/L (3.5-5.1)
[2018-09-03 22:00] LABS: CALCIUM 8.4 mg/dL (8.8-10.2); CREATININE 1.5 mg/dL (0.7-1.2); MAGNESIUM 1.7 mg/dL (1.5-2.7); PHOSPHORUS 3.4 mg/dL (2.7-4.5); POTASSIUM 4.3 mmol/L (3.5-5.1)
[2018-09-04] MEDS ORDERED: D5 NS 1,000 ML IV PRN ×2 (00:36→00:45)
[2018-09-04 02:22] LABS: CALCIUM 8.1 mg/dL (8.8-10.2); CREATININE 1.4 mg/dL (0.7-1.2); MAGNESIUM 1.7 mg/dL (1.5-2.7); PHOSPHORUS 3.5 mg/dL (2.7-4.5); POTASSIUM 4.3 mmol/L (3.5-5.1)
[2018-09-04 07:05] LABS: HEMOGLOBIN A1C 15.2 % (4.8-6.0)
[2018-09-04 07:06] LABS: EOS# 0.18 X1000 (0.0-0.7); EOS% 4.7 % (0.0-10.0); HEMATOCRIT 25.6 % (42.0-52.0); LYMPH% 18.4 % (20.5-51.1); MCH 25.5 PG (27-31); MCHC 31.3 g/dL (33-37); MCV 81.5 FL (81-99); MONO# 0.36 X1000 (0.11-0.59); MONO% 9.4 % (1.7-9.3); MPV 9.1 FL (7.4-10.4); NEUT# 2.57 X1000 (1.4-6.5); NEUT% 67.5 % (42.2-75.2); PLT 248 X1000 (130-400); RBC 3.14 XMIL (4.7-6.1); RDW 14.8 % (11.5-14.5); WBC 3.81 X1000 (4.8-10.8)
[2018-09-04 07:35] LABS: AGAP 12; ALBUMIN 2.7 g/dL (3.5-5.0); ALKALINE PHOSPHATASE 91 U/L (32-122); BUN 25 mg/dL (8-22); CHLORIDE 105 mmol/L (98-107); COSMO 283; CREATININE 1.3 mg/dL (0.7-1.2); ESTIMATED GFR 58; GLUCOSE 156 mg/dL (70-104); GOT 19 U/L (10-34); GPT 10 U/L (10-44); MAGNESIUM 1.6 mg/dL (1.5-2.7); PHOSPHORUS 3.2 mg/dL (2.7-4.5); POTASSIUM 3.9 mmol/L (3.5-5.1); SODIUM 138 mmol/L (136-145); TCO2 21 mmol/L (25-35); TOTAL BILIRUBIN < 0.15 mg/dL (0.20-1.00); TOTAL PROTEIN 6.1 g/dL (6.3-8.3)
[2018-09-04] MEDS ORDERED: DIFLUCAN PO SCH (09:00)
[2018-09-04 09:46] LABS: CALCIUM 7.8 mg/dL (8.8-10.2); CREATININE 1.3 mg/dL (0.7-1.2); MAGNESIUM 1.6 mg/dL (1.5-2.7); PHOSPHORUS 3.8 mg/dL (2.7-4.5); POTASSIUM 4.1 mmol/L (3.5-5.1)
[2018-09-04] MEDS ORDERED: 1/2 NS 1,000 ML IV SCH (12:33)
--- NOTE | 2018-09-04 13:43 | PROGRESS NOTE ---
DATE: 09/04/2018 SUBJECTIVE: This morning Mr. Santana refers to be doing a lot better denies any complaints, he just had his lunch. OBJECTIVE: Vitals: Blood pressure is 135/78, pulse is 84, respiration is 18, temperature 98 degrees, patient is saturating 98% on room air. General: Mr. Santana 53-year-old male he is in bed, is not in any cardiopulmonary distress. Mucosa is pink, slightly dry. Anicteric. Acyanotic. Neck: Supple. Chest: Clear to auscultation. No crepitations, no rhonchi. Cardiovascular: Regular rate and rhythm. Abdomen: Soft, nontender. Bowel sounds present. Extremities: No pedal edema. 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 LABORATORY DATA: WBC is 3.81, hemoglobin 8.0, platelet count of 248,000. Chemistry is also reviewed sodium 135, potassium 4.1, chloride 103, bicarb 21, creatinine is 1.3 which seems to be patient's baseline. ASSESSMENT: 1. Severe uncontrolled diabetes mellitus with hyperglycemia on presentation improved. 2. Suspected medical noncompliance. 3. Clinical volume depletion patient is on intravenous fluids. 4. Obstructive uropathy secondary to benign prostatic hypertrophy, patient had prostate removal however he seems to continue having voiding symptoms. A CT scan June of this year did show some prostate tissue so I will put the patient on tamsulosin and Avodart to see if this can be improved. 5. Left hydroureteronephrosis noted. No changes on recent CT scan. 6. Chronic kidney disease stage 3A stable. So in general we are going to continue with the IV fluids, I have gone up to 100 mL/h. Will also restarted patient on his home insulin regimen. I have added 5 units of lispro with meals and sliding scale. Will continue to follow up on his glucose and make changes accordingly. His urine culture is negative. I therefore discontinue the IV antibiotics and the antifungal. Hopefully tomorrow if Mr. Santana continues to be stable and glucose is fine will be able to discharge him. cc: Mario Carrasco MD [facility]ITALSt[facility]
[2018-09-04 13:48] LABS: CALCIUM 7.8 mg/dL (8.8-10.2); CREATININE 1.4 mg/dL (0.7-1.2); MAGNESIUM 1.6 mg/dL (1.5-2.7); PHOSPHORUS 3.4 mg/dL (2.7-4.5); POTASSIUM 4.6 mmol/L (3.5-5.1)
[2018-09-04] MEDS ORDERED: LEVAQUIN 500 MG/D5W 500 MG/100 ML IVPB IV SCH (16:00)
[2018-09-04] MEDS: HUMALOG (PARKWAY) SUBQ SCH ×3 (16:13→20:25)
[2018-09-04] MEDS ORDERED: FLOMAX PO SCH (21:00)
[2018-09-04] MEDS ORDERED: HUMULIN 70/30 (PARKWAY) SUBQ SCH (21:00)
[2018-09-04] MEDS ORDERED: AVODART PO SCH (21:00)
[2018-09-05] MEDS: HUMALOG (PARKWAY) SUBQ SCH ×2 (07:12→09:18)
[2018-09-05] MEDS ORDERED: HUMULIN 70/30 (PARKWAY) SUBQ SCH (07:30)
[2018-09-05 08:44] LABS: CALCIUM 7.9 mg/dL (8.8-10.2); CREATININE 1.3 mg/dL (0.7-1.2)
[2018-09-05 09:13] VITALS: BP 120/78
--- NOTE | 2018-09-05 10:17 | DISCHARGE SUMMARY ---
ADMISSION DATE: 09/03/2018 DISCHARGE DATE: 09/05/2018 DISPOSITION: Home. FOLLOWUP: 1. Primary care physician. 2. Dr. Marte. 3. Dr. King. DIAGNOSES AT THE TIME OF ADMISSION: 1. Diabetes mellitus with hyperglycemia. 2. Hyperosmolar nonketotic. 3. Questionable urinary tract infection. 4. Medical noncompliance. DIAGNOSES AT THE TIME OF DISCHARGE: 1. Severe uncontrolled diabetes mellitus with hyperglycemia on presentation and A1c of 15.2. Glucose level has significantly improved during the hospital course with insulin regimen. 2. Clinical volume depletion, improved. 3. Obstructive uropathy secondary to benign prostatic hypertrophy. The patient has been started on tamsulosin and Avodart. He is supposed to follow up with Dr. Marte. 4. Left hydroureteronephrosis noted on recent CT scan. There have not been any changes, according to the report. The patient is to follow up with Urology. 5. Chronic kidney disease stage 3A, stable. The patient will follow up with Dr. King. DISCHARGE MEDICATIONS: 1. Insulin 70/30 30 in the morning and 20 in the evening. 2. Avodart 0.5 p.o. at bedtime. 3. Tamsulosin 0.4 p.o. at bedtime. PRESENTING COMPLAINT: High blood sugar. HISTORY OF PRESENTING COMPLAINT: Mr. Santana is a 53-year-old gentleman who is known to have diabetes mellitus. He was discharged from the hospital just about a week ago because of DKA and acute kidney injury. Apparently at home he felt sicker and then came to the emergency department where he was found to have a glucose level of more than 500. He was subsequently admitted for uncontrolled diabetes with hyperglycemia for medical management. HOSPITAL COURSE: Mr. Santana was admitted to ICU and was started on insulin drip for hyperglycemia protocol, which eventually controlled his symptoms. He was also adequately IV hydrated. Through the hospital course, his condition improved and insulin was subsequently changed to long- acting insulin as well as intermittent short-acting coverage. Mr. Santana was able to tolerate his diet. He feels a lot better and he feels stronger. His glucose level has subsequently gone down to about 113 early this morning. His chemistries this morning show a glucose level of 162. He is therefore deemed stable for discharge. He is going to follow up with Dr. King because of the renal failure and with Dr. Marte who is the surgeon who did his prostate removal a couple years ago. Mr. Santana has been advised extensively about medical compliance and also the need to have routine follow up with a primary care physician and he voiced his understanding. We have given him a refill of his medications until he sees a primary care doctor. All of the discharge instructions have been discussed with him and he voices his understanding. Time spent on discharge was 36 minutes. cc: MD Gustabo Melgar MD Reginald D. Gladish, MD
== END 2018-09-05 10:50 | disposition home or self-care (01) | DRG 638 ==
LOC: P.ED 11:48 → P.ICU 14:26 → SUATTDRO 14:26
PROVIDERS: ATTEND Internal Medicine
CPT/HCPCS: 71020; 71046; 80048; 80053; 80104; 80301; 80305; 81001; 82009; 82805; 82948; 83036; 83605; 83690; 83735; 84100; 84484; 85025; 87088; 96361; 96365; 99285; A9270; G0431; G0434; G0477; J0744; J1815; J1956; J7030; J7042; XXXXX

== ENCOUNTER 2018-11-25 10:06 | Inpatient (IN) ==
[2018-11-25 11:19] LABS: BILIRUBIN URINE NEGATIVE (NEGATIVE); BLOOD URINE 4+ (NEGATIVE); COLOR RED; KETONE URINE TRACE mg/dL (NEGATIVE); LEUKOCYTES URINE 2+ (NEGATIVE); NITRITE URINE POSITIVE (NEGATIVE); SP GRAVITY URINE 1.015; UROBILINOGEN URINE NORMAL
[2018-11-25 11:21] LABS: CLARITY TURBID (CLEAR); URINE SOURCE CATH
[2018-11-25 11:49] LABS: BASO# 0.04 X1000 (0.0-0.2); BASO% 0.4 % (0.0-0.8); EOS# 0.24 X1000 (0.0-0.7); EOS% 2.3 % (0.0-10.0); HEMATOCRIT 27.6 % (42.0-52.0); HEMOGLOBIN 8.4 g/dL (14.0-18.0); IMM GRAN# 0.02 X1000 (0.0-0.04); IMM GRAN% 0.2 % (0.0-0.5); LYMPH# 0.54 X1000 (1.2-3.4); LYMPH% 5.2 % (20.5-51.1); MCH 23.9 PG (27-31); MCHC 30.4 g/dL (33-37); MCV 78.6 FL (81-99); MONO# 0.53 X1000 (0.11-0.59); MONO% 5.1 % (1.7-9.3); MPV 9.7 FL (7.4-10.4); NEUT# 9.03 X1000 (1.4-6.5); NEUT% 86.8 % (42.2-75.2); PLT 265 X1000 (130-400); RBC 3.51 XMIL (4.7-6.1); RDW 17.1 % (11.5-14.5)
[2018-11-25 11:53] LABS: ALBUMIN 3.6 g/dL (3.5-5.0); CALCIUM 8.7 mg/dL (8.8-10.2); CREATININE 1.9 mg/dL (0.7-1.2); POTASSIUM 4.6 mmol/L (3.5-5.1); TOTAL BILIRUBIN 0.2 mg/dL (0.20-1.00); TOTAL PROTEIN 7.1 g/dL (6.3-8.3)
[2018-11-25 12:15] LABS: BANDS 1 % (0-1); LYMPHS 5 % (21-51); MONO 4 % (1-9); SEGS 90 % (42-75)
[2018-11-25 12:16] LABS: MICROCYTOSIS 1+
[2018-11-25] MEDS ORDERED: NS 1,000 ML IV ONE (12:51)
[2018-11-25] MEDS ORDERED: ROCEPHIN 1 GM in NS 50 ML IV ONE (12:51)
[2018-11-25] MEDS ORDERED: TYLENOL PO PRN (14:13)
[2018-11-25] MEDS ORDERED: ZOFRAN IV PRN (14:13)
--- NOTE | 2018-11-25 15:35 | Diag Imaging Result Doc PS360 ---
EXAM: CT RENAL STONE SEARCH INDICATION: hematuria TECHNIQUE: This exam was performed using automated exposure control, adjustment of mA or kV according to patient size, and/or use of iterative reconstruction technique. COMPARISON: 07/07/2018 FINDINGS: There is mild subsegmental atelectasis at the lung bases. The gallbladder, liver, spleen, pancreas, and adrenal glands are grossly unremarkable as imaged with unenhanced CT. No renal or ureteral stones are identified. There is moderate dilation of the left ureter and mild dilation of the left renal pelvis. It is not as severe as the previous study, however. There is no hydronephrosis on the right and no dilation of the right ureter. There is a Garcia catheter in the urinary bladder. The bladder is partially distended. The urinary bladder wall appears somewhat thickened but not as severe as the previous study. There is high attenuating material in the bladder lumen that probably represents blood products. Further evaluation of the bladder is limited with no IV contrast. There is no evidence of bowel wall thickening. The appendix is normal. The remainder of the GI tract is essentially unremarkable. Retroperitoneal lymphadenopathy is approximately stable. IMPRESSION: 1.No obstructing stones identified. However, there is dilation of the left ureter and, to a lesser degree, the left renal collecting system. However, it is not as severe as the previous study. 2.Somewhat thickened urinary bladder wall that is not quite as significant as the previous study. 3.High attenuating material layering in the urinary bladder lumen that probably represents blood products. 4.Approximately stable retroperitoneal lymphadenopathy. 5.Other external/nonacute findings detailed above. Electronically signed by Max Vela 11/25/2018 3:33 PM
[2018-11-25] MEDS: HUMULIN R SUBQ SCH ×2 (15:37→21:32)
[2018-11-25] MEDS: HUMULIN 70/30 SUBQ SCH (15:37)
[2018-11-25] MEDS: NS 1,000 ML IV SCH (15:37)
[2018-11-25] MEDS: MYCOSTATIN OINTMENT TOP SCH ×2 (16:53→21:31)
[2018-11-25] MEDS: DIFLUCAN PO SCH ×2 (17:11→21:33)
--- NOTE | 2018-11-25 17:38 | PROVIDER DOCUMENTATION ---
This chart was entered by Rayne Torres Scribe, acting as scribe for Jeannine Milton MD. HPI-Male Problem - General Chief Complaint: Male Stated Complaint: HYPERGLYCEMIA/ WEAKNESS Time Seen by Provider: 11/25/18 10:16 Source: patient, EMS ([facility]) Allergies/Adverse Reactions: Patient Allergies Allergy/AdvReac Type Severity Reaction Status Date / Time No Known Allergies Allergy Verified 09/03/18 11:52 Home Medications: Home Medication List Medication Instructions Recorded Confirmed Last Taken Type Ferrous Sulfate [Ferosul] 325 mg PO BID 09/09/18 11/25/18 11/24/18 History Sennosides/Docusate Sodium 1 ea PO DAILY 09/09/18 11/25/18 11/24/18 History [Senna-S Tablet] Ergocalciferol (Vitamin D2) 50,000 unit PO Q7D #4 cap 09/21/18 11/25/18 11/24/18 Rx [Vitamin D] Fluoxetine [Prozac] 10 mg PO QAM 30 Days #30 cap 09/21/18 11/25/18 11/24/18 Rx Melatonin 5 mg PO QHS 30 Days #30 tab 09/21/18 11/25/18 11/24/18 Rx Mirtazapine [Remeron] 15 mg PO QHS 30 Days #30 tab 09/21/18 11/25/18 11/24/18 Rx Risperidone [Risperdal] 1.5 mg PO QHS 30 Days #45 tab 09/21/18 11/25/18 11/24/18 Rx Aspirin [Aspir-Low] 81 mg PO DAILY 11/25/18 11/25/18 Unknown History Ciprofloxacin HCl [Cipro] 500 mg PO BID 11/25/18 11/25/18 Unknown History Fluconazole 100 mg PO 4XDAY 11/25/18 11/25/18 Unknown History Metoprolol Tartrate 25 mg PO BID 11/25/18 11/25/18 Unknown History Pantoprazole [Protonix] 40 mg PO DAILY@0700 11/25/18 11/25/18 Unknown History - History of Present Illness-Male Nature of Presenting Problem: 53 yowm presents to the ed with c/o not being able to cath himself this am. pt sts has to self cath daily and today pt noted blood and clots and was unable to cath. pt is thin and has noted BGL 320 and is insulin dependent Location of Complaint: reports: suprapubic Radiation: reports: none Quality of Pain: reports: fullness Severity in ED: reports: moderate Onset/Duration: reports: this morning Timing: reports: still present, getting worse Context/Activities at Onset: reports: light activity Urinary Symptoms: reports: other (self cath) Sexual intercourse history: reports: Not Active Contraception: reports: none Associated Symptoms: reports: other (unable to cath) Associated Symptoms: reports: other (unable to cath). denies: back/neck pain, chest pain, cough, diarrhea, dizziness, fever/chills, joint pain, nausea, vomiting Similar Symptoms Previously?: Yes (freq uti) Recently seen or treated by another doctor?: No Review of Systems - Adult - REVIEW OF SYSTEMS - ADULT Constitutional: denies: chills, fever Eyes: reports: no symptoms reported Ears, Nose, Mouth & Throat: reports: no symptoms reported Cardiovascular: denies: chest pain, palpitations Respiratory: denies: cough, shortness of breath, wheezing Gastrointestinal: reports: see HPI, abdominal pain (suprapubic), diarrhea, nausea. denies: vomiting Genitourinary: reports: see HPI, frequent UTI's, urinary retention Musculoskeletal: denies: back pain, neck pain Integumentary: reports: no symptoms reported Neurological: denies: dizziness/vertigo, headache/migraines Psychiatric: reports: no symptoms reported Endocrine: reports: no symptoms reported Hematologic/Lymphatic: reports: no symptoms reported Allergic/Immunologic: reports: no symptoms reported All Other Systems: Reviewed and Negative Past History - Adult - PAST MEDICAL HISTORY-ADULT Review of Records: reports: Nursing Assessment Review, Medications Reviewed Major Childhood Illnesses: reports: denies history Cardiovascular: reports: HTN Respiratory: reports: asthma Gastrointestinal: reports: denies history Genitourinary: reports: kidney disease, kidney stones, stenosis/obstruction, chronic UTI's Musculoskeletal: reports: chronic pain Neurological: reports: denies history Psychiatric: reports: anxiety Endocrine/Immune: reports: Diabetes Other Conditions: reports: denies history - PRIOR SURGERIES/PROCEDURES Surgical/Procedure History: reports: reviewed, not pertinent, other (prostate) - IMMUNIZATION STATUS Childhood Immunizations: See Nurse Assessment Flu Vaccine: See Nurse Assessment - FAMILY HISTORY Family History: reviewed, not pertinent - SOCIAL HISTORY Smoking: denies Substance Use: alcohol Alcohol Use Frequency: 2-3 times a month Number of drinks per typical drinking period:: 3-4 drinks Living Situation: alone Physical Exam-General - PHYSICAL EXAM-ADULT Initial Vital Signs Reviewed: Yes - CONSTITUTIONAL General Appearance: appears well, alert, mild distress, thin, other (disheveled in appearance) - EYES Eyes: PERRL/EOMI, pink conjunctivae - HEAD, EARS, NOSE, MOUTH & THROAT HENMT: moist mucous membranes, dental decay - NECK Neck: non-tender, full range of motion, supple, normal inspection - RESPIRATORY Respiratory: chest non-tender, lungs clear, normal breath sounds - CARDIOVASCULAR Cardiovascular: normal peripheral pulses, regular rate, rhythm - CHEST (BREASTS) Chest/Breast: deferred - GASTROINTESTINAL (ABDOMEN) Abdominal Exam: normal bowel sounds, soft, distended, tenderness (suprapubic). negative: guarding, rigid, rebound - LYMPHATIC Lymphatic: no adenopathy - MUSCULOSKELETAL Back Exam: normal inspection, no CVA tenderness, no vertebral tenderness Extremity: normal range of motion, non-tender, normal inspection, no pedal edema , no calf tenderness, normal capillary refill, pelvis stable - SKIN Integumentary: normal turgor, warm/dry, pallor - NEUROLOGIC Neurologic: grossly normal, no motor/sensory deficits - PSYCHIATRIC Psych/Mental Status: normal mood/affect, normal thought content, normal thought process, oriented x 3 Progress - PLAN OF CARE/RESULTS Progress/Plan/Lab Results: Vital Signs - 8 hr 11/25/18 10:03 Temperature 98 F Pulse Rate 71 Respiratory Rate 16 Blood Pressure 124/079 O2 Sat by Pulse Oximetry 100 Laboratory Results - last 24 hr 11/25/18 11/25/18 11/25/18 11:13 11:21 11:21 WBC 10.40 RBC 3.51 L Hgb 8.4 L Hct 27.6 L MCV 78.6 L MCH 23.9 L MCHC 30.4 L RDW Std Deviation 17.1 H Plt Count 265 MPV 9.7 Immature Gran % (Auto) 0.2 Neut % (Auto) 86.8 H Lymph % (Auto) 5.2 L [place] % (Auto) 5.1 Eos % (Auto) 2.3 Baso % (Auto) 0.4 Immature Gran # (Auto) 0.02 Neut # (Auto) 9.03 H Lymph # (Auto) 0.54 L [place] # (Auto) 0.53 Eos # (Auto) 0.24 Baso # (Auto) 0.04 Segmented Neutrophils 90 H Band Neutrophils 1 Lymphocytes 5 L Monocytes 4 Microcytosis 1+ Sodium 139 Potassium 4.6 Chloride 106 Carbon Dioxide 23 L Anion Gap 10 BUN 26 H Creatinine 1.9 H Estimated GFR/1.73 m2 37 BUN/Creatinine Ratio 14 Glucose 192 H Calculated Osmolality 287 Calcium 8.7 L Total Bilirubin 0.20 AST 10 ALT 8 L Alkaline Phosphatase 60 Total Protein 7.1 Albumin 3.6 Globulin 4.0 Albumin/Globulin Ratio 1.0 Urine Source CATH Urine Color RED Urine Clarity TURBID A Urine pH 7.0 Ur Specific [place] 1.015 Urine Protein 3+(500 mg/dL) A Urine Ketones TRACE Urine Blood 4+ Urine Nitrite POSITIVE A Urine Bilirubin NEGATIVE Urine Urobilinogen NORMAL Urine Microscopic RBC Urine WBC 2+ A Urine Microscopic WBC Ur Epithelial Cells Urine Crystals Urine Bacteria Urine Casts Urine Trichomonas Urine Yeast Urine Glucose 2+(250 mg/dL) A Orders Category Date Time Status Irrigate Bladder DIRECTED Care 11/25/18 10:12 Active Saline Loc NOW Care 11/25/18 10:[address] RENAL STONE SEARCH [CT] Routine Exams 11/25/18 13:04 Ordered CBC WITH DIFF [HEME] Stat Lab 11/25/18 11:21 Completed COMPREHENSIVE METABOLIC PANEL [CHEM] Stat Lab 11/25/18 11:[address] W/POSS RFLX CULT [URINALYSIS] Stat Lab 11/25/18 11:13 Completed URINE CULTURE [RM] Routine Lab 11/25/18 11:22 Ordered 0.9% Sodium Chloride Inj [Ns] 1,000 ml Med 11/25/18 12:51 Active IV 999 mls/hr CefTRIAXONE [Rocephin] 1 gm Med 11/25/18 12:51 Active 0.9% Sodium Chloride Inj [Ns] 50 ml IV NOW Result Diagrams: 11/25/18 11:21 11/25/18 11:21 - REASSESSMENT Reassessment #1 Time Reassessed: 10:54 (pt was cathed and 250cc came out with gross blood) Status: improving Reassessment #2 Time Reassessed: 13:04 (pt is resting in bed) Status: unchanged - CT/MRI 1 CT Study: Kidneys Impression: See EMR Report (waiting on results) - CONSULTS/PCP/HOSPITALIST Notification #1 *Consult/PCP/Hospitalist*: hospitalist dr maciel Time Discussed: 13:04 (wants urology consult and see if pt need to be transfered to [facility] or F/U) Consult Disposition: Admit #2 Consult: dr gaffney urology Time Discussed: 13:11 (wants pt transfered to [facility] for urology consult) Reason/Comments: phone consult Departure - Departure Date of Disposition Decision: 11/25/18 Time of Disposition Decision: 13:05 DIAGNOSIS: Enlarged prostate Hematuria Qualifiers: Hematuria type: gross Qualified Code(s): R31.0 - Gross hematuria Disposition: ADMITTED INPATIENT 09 Certified Medical Emergency: Emergent Condition: Stable Referrals and Follow-Ups: None,PCP [Primary Care Provider] - - Critical Care Note This patient required my direct & personal management of CC.: No Attestation - Physician/ PAULA Attestation Patient care was provided by Advanced Practice Provider:: No The physician spent face to face time with patient:: Yes Advanced Practice Provider documentation review:: Supervising physician onsite and consulted in the evaluation and care of this patient. The physician did have a face to face encounter with the patient. This chart was documented by the indicated scribe, (Rayne Torres Scribe) and accurately reflects the services I performed and decisions made by me, Jeannine Milton MD, as attested by the provider's signature.
--- NOTE | 2018-11-25 19:25 | HISTORY AND PHYSICAL ---
The patient came in with hematuria. 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 He came in for evaluation for that. He has evidence of a UTI. He is a diabetic. He will be admitted for persistent hematuria which may be due to hemorrhagic cystitis, but differential also includes nephrolithiasis and bladder mass. He will need a Urology consult. We are making arrangements to transfer him to [facility] for evaluation. We will continue antibiotics. At this point, we have not placed a three-way catheter but we will if he has issues with three-way catheterization. We will continue to monitor very closely. This is a [id number] encounter note with MONIE Dior. cc: Lee Archibald MD
--- NOTE | 2018-11-25 20:06 | CONSULTATION ---
DATE OF CONSULTATION: 11/25/2018 CONSULTING PHYSICIAN: Lee Archibald MD with hospitalist service. REASON FOR CONSULTATION: Gross hematuria with clots. HISTORY OF PRESENT ILLNESS: This is a 53-year-old male who is known to me secondary to history of neurogenic bladder and BPH. He had undergone transurethral resection of prostate in 2014. He continued to have difficulty emptying his bladder and was instructed to perform intermittent self- catheterization. He elected to take his care to [place] in 2014 and has not been to my clinic since. The patient states that he had evaluation in [place] by Dr. Watts and did not have any other procedures or interventions. He was told to catheterize. He reports his daughter get supplies and he catheterizes 4 times a day. He reports intermittent UTIs but none that required hospitalization. He reports occasional gross hematuria when he caths. One day prior to presentation, he reported cath meeting resistance and then seeing a significant amount of blood followed by blood with clots. He presented to the emergency room where multiple attempts were reportedly done to irrigate with persistent hematuria. He was admitted for further evaluation of his hematuria. He had CT abdomen and pelvis renal stone search performed, which revealed no stones but dilation of left ureter and left renal pelvis, which has been stable compared with the study in June 2018. Of note, in 2014 during his retrograde, he had dilation of the left renal pelvis. The patient currently denies significant pain. PAST MEDICAL HISTORY: Diabetes mellitus, neurogenic bladder, major depression, hypertension. PAST SURGICAL HISTORY: TURP. ALLERGIES: No known drug allergies. HOME MEDICATIONS: Protonix, metoprolol, Risperdal, Remeron, Prozac, melatonin, Colace, vitamin D, aspirin. SOCIAL HISTORY: Currently denies tobacco, alcohol or illicit drug use. FAMILY HISTORY: Negative for malignancies. REVIEW OF SYSTEMS: Reviewed and 12 systems negative except for the HPI. PHYSICAL EXAMINATION: Vital Signs: T 97.5 degrees, P 64, BP 114/70. General: No acute distress. Pleasant male. HEENT: Normocephalic, atraumatic. Cardiovascular: Regular rhythm. Pulmonary: Bilateral breath sounds. Abdomen: Scaphoid. Nontender to palpation. Back: No CVA tenderness. Genitourinary: Testes descended bilaterally. Normal patent meatus. Penile shaft is without lesions. Perineal structural integrity is intact. Digital rectal examination is deferred at this time. Back: No CVA tenderness. Lymphatic: No groin lymphadenopathy or cervical lymphadenopathy. Dermatologic: No obvious skin rashes. Neurologic: Alert and oriented x3. Psychiatric: Appropriate mood and affect. PERTINENT LABORATORY DATA: White cell count of 10,000, creatinine is 1.9. His urinalysis is grossly bloody. MICROBIOLOGY: None at this time. PERTINENT IMAGING: CT renal stone search per HPI. ASSESSMENT AND PLAN: This is a 53-year-old male with neurogenic bladder and long-standing history of left dilation of the collecting system likely secondary to benign prostatic hyperplasia and retention in the past. He has gross hematuria that is likely from traumatic catheterization. I have discussed with the patient other reasons for gross hematuria including infection and the possibility of genitourinary malignancy. He has not had a cystoscopic evaluation since 2014. We have discussed with the patient that for now the main goal is to get his urine cleared, and if we are able to do so, he would benefit from cystoscopic evaluation in the future. I have supervised placement of a 3-way Garcia catheter, which was connected to continuous bladder irrigation. PLAN: 1. Continue CBI for now and titrate as needed to keep the urine pink and free of clots. 2. We will reassess the patient for improvement. 3. Agree with sending urine for culture and Rocephin for now. Thank you for the consultation. cc: MD Lee Contreras MD
[2018-11-25] MEDS: FERROUS SULFATE PO SCH (21:31)
[2018-11-25] MEDS: LOPRESSOR PO SCH (21:31)
[2018-11-25] MEDS: MELATONIN PO SCH (21:31)
[2018-11-25] MEDS: REMERON PO SCH (21:32)
[2018-11-25] MEDS: RISPERDAL PO SCH (21:32)
[2018-11-25] MEDS: MYCOSTATIN POWDER TOP SCH (21:33)
[2018-11-26] MEDS: NS 1,000 ML IV SCH ×3 (02:20→22:42)
--- NOTE | 2018-11-26 05:38 | HISTORY AND PHYSICAL ---
PRIMARY CARE PROVIDER: No one. PRIMARY UROLOGIST: Dr. Marte. PRIMARY COOLER DELIVERER: Dr. King. CHIEF COMPLAINT: Bloody urine. HISTORY OF PRESENT ILLNESS: Mr. Kulwinder Santana is a 53-year-old male with a medical history of BPH, obstructive uropathy, chronic urinary tract infections, urinary retention with neurogenic bladder and self-catheterizes about every four to five hours. States that last night after he self-cathed he noticed about three or four drops of blood from the end of the urethra. He did not pay any attention until this morning when he drained his bladder and it was dark bloody and he had difficulty passing the catheter as well. He said it felt different. He has been having some left lower back ache over the last three or four days but denies any fever or chills. He also has a history of uncontrolled diabetes mellitus, type 2 with a hemoglobin A1c of 15 back in August. He has got a rash over the left foot and a fungal type rash in the groin area as well. Will transfer to [facility] as Urology is there. He is likely going to need to have a three-way continuous bladder irrigation system. PAST MEDICAL HISTORY: 1. Diabetes mellitus, type 2, uncontrolled with a hemoglobin A1c of 15 in August 2018. 2. CKD, stage 3, followed by Dr. King. 3. Kidney stones. 4. Chronic urinary tract infections. 5. Urinary retention with neurogenic bladder. BPH with obstructive uropathy. Self-caths every four to five hours, followed by Dr. Marte. Also with recent left hydronephrosis on imaging this year. 6. Iron deficiency anemia. 7. Asthma. 8. GERD. 9. Anxiety and depression. 10.Recently treated September 2018 for suicidal and homicidal ideations which he says have resolved. SURGICAL HISTORY: 1. Prostate surgery. 2. Cystoscopy with bilateral retrograde. FAMILY HISTORY: Mother, hypertension. Brother, diabetes. Father, no medical conditions. SOCIAL HISTORY: for 25 years. Recently earlier this year. He was at one point homeless and living in a car but now he states he lives in a house with one of his friends in [place] and that he is able to take much better care of himself. He eats three meals a day. ALLERGIES: No known drug allergies. HOME MEDICATIONS: 1. Aspirin 81 mg p.o. daily. 2. Ferrous sulfate 325 mg p.o. twice daily. 3. Has been on fluconazole 100 mg p.o. four times daily. 4. Metoprolol tartrate 25 mg p.o. twice daily. 5. Protonix 40 mg p.o. daily. 6. Senokot one tab p.o. daily. 7. Melatonin 5 mg p.o. nightly. 8. Remeron 15 mg p.o. nightly. 9. Risperdal 1,5 mg p.o. nightly. 10.Prozac 10 mg p.o. daily. 11.Vitamin D2 50,000 units p.o. daily. REVIEW OF SYSTEMS: Fourteen-point review of systems are complete and all were negative except for those mentioned above in HPI. PHYSICAL EXAMINATION: VITAL SIGNS: Temperature 98.0, heart rate 71, respiratory rate 16, blood pressure 124/79, O2 saturation 100% on room air. 6 feet 0 inches tall, 155 pounds. BMI is 21.0. GENERAL: Mr. Kulwinder Santana is a 53-year-old ill-appearing male. He is in no acute distress. He is able to answer questions appropriately. HEENT: Atraumatic, normocephalic. Pupils equal, round, reactive to light. Extraocular movements intact. Mucous membranes are moist. Dentition is poor. NECK: Trachea midline. CARDIOVASCULAR: S1, S2. Regular rate and rhythm. No rubs, gallops, murmurs. No lower extremity edema. Plus-2 dorsalis and radial pulses, posterior radial pulses. Negative for JVD or carotid bruits. PULMONARY: Clear to auscultate. Bilateral breath sounds. No accessory muscle use or work of breathing noted. GASTROINTESTINAL: Positive bowel sounds times 4. Soft, nontender, nondistended. EXTREMITIES: Moves all extremities equally with full range of motion. NEUROLOGIC: A and O times 3. Follows commands. Sensory is intact. SKIN: Warm, dry, intact except for a rash over the left foot and fungal rash in the groin area. GENITOURINARY: He has got a Garcia catheter in. It was a Coude catheter that was placed, 14 Kenyan, with dark blood urine. Adequate amount. LABORATORY DATA: White blood cells 34296. Hemoglobin 8. Hematocrit 27. Platelet count 265. Sodium 139. Potassium 4.6. BUN 26. Creatinine 1.9. Glucose 192. Calcium 8.7. Bilirubin 0.20. AST 10. ALT 8. Albumin 3.6. Urinalysis: Turbid clarity, 3-plus protein, 4- plus blood, positive nitrite, 2-plus white blood cells, 2-plus glucose. IMAGING: None available yet. ASSESSMENT AND PLAN: 1. Hematuria with history of neurogenic bladder and frequent self- catheterizations along with a history of BPH, obstructive uropathy, urinary retention. Has seen Dr. Marte in the past. Will reconsult him and send him over to [facility]. Right now he has got a 14 Kenyan Coude catheter where he had 240 out upon initiation of catheter. He is going to have to have frequent flushes or he will need to have a three-way placed with continuous bladder irrigation. 2. Iron deficiency anemia, likely with some acute blood loss anemia secondary to hematuria. Will monitor daily. Vitals are stable at this time. 3. Uncontrolled diabetes mellitus, type 2. Will do patterned blood glucoses and sliding scale insulin. His last hemoglobin A1c was 15 in August 2018. 4. Chronic kidney disease, stage 3. Creatinine today is 1.9. Baseline is anywhere from usually from 1.4 to 1.7. BUN 26 and he runs in the 50s, so it is actually okay, with a GFR of 37. He will get some fluids to hydrate. 5. Gastroesophageal reflux disease. Continue proton pump inhibitor. 6. Anxiety and depression with recent history of suicidal and homicidal ideations in September 2018 where he stayed in [facility]. Will continue all those medications back. He states he has no ideations at this time and is not homeless anymore. He still continues to be from his . 7. Deep venous thrombosis prophylaxis. Sequential compression devices. 8. Left foot rash which appears to be fungal. 9. Fungal infection of the groin. Will start him on likely Nystatin. It looks like he was taking fluconazole at some point, so we will resume that as well. Dictated by MONIE Dior for Lee Archibald MD cc: MONIE Dior MD [facility]
--- NOTE | 2018-11-26 05:43 | HISTORY AND PHYSICAL ---
ADDENDUM: ASSESSMENT AND PLAN: Urinary tract infection. He has positive nitrites. Cultures bending but he has got a history of having enterococcus faecalis in the urine, yeast in the urine, mostly yeast, looks like E.coli in the past, Enterobacter, staphylococcus, so multiple different bacterias since 2015. Antibiotic coverage for him is going to be Rocephin 1 g IV q.24.h along with Diflucan 100 mg p.o. four times a day. Dictated by MONIE Dior for Lee Archibald MD cc: MONIE Dior MD
[2018-11-26 06:33] LABS: BASO# 0.03 X1000 (0.0-0.2); BASO% 0.7 % (0.0-0.8); EOS# 0.48 X1000 (0.0-0.7); EOS% 10.5 % (0.0-10.0); HEMATOCRIT 27.4 % (42.0-52.0); HEMOGLOBIN 8.4 g/dL (14.0-18.0); LYMPH# 0.76 X1000 (1.2-3.4); LYMPH% 16.7 % (20.5-51.1); MCH 24.2 PG (27-31); MCHC 30.7 g/dL (33-37); MONO# 0.32 X1000 (0.11-0.59); MPV 9.7 FL (7.4-10.4); NEUT# 2.97 X1000 (1.4-6.5); NEUT% 65.1 % (42.2-75.2); PLT 282 X1000 (130-400); RBC 3.47 XMIL (4.7-6.1); RDW 17.4 % (11.5-14.5); WBC 4.56 X1000 (4.8-10.8)
[2018-11-26] MEDS: HUMULIN R SUBQ SCH ×4 (06:33→20:50)
[2018-11-26 06:47] LABS: HEMOGLOBIN A1C 11.1 % (4.8-6.0)
[2018-11-26] MEDS: HUMULIN 70/30 SUBQ SCH ×4 (06:53→16:10)
[2018-11-26] MEDS: PROTONIX PO SCH (06:56)
[2018-11-26 07:12] LABS: AGAP 9; ALB/GLOB RATIO 1.1; ALBUMIN 3.3 g/dL (3.5-5.0); ALKALINE PHOSPHATASE 53 U/L (32-122); BUN 22 mg/dL (8-22); CALCIUM 8.6 mg/dL (8.8-10.2); CHLORIDE 111 mmol/L (98-107); COSMO 289; CREATININE 1.6 mg/dL (0.7-1.2); ESTIMATED GFR 45; GLUCOSE 117 mg/dL (70-104); GOT 9 U/L (10-34); GPT 6 U/L (10-44); POTASSIUM 4.2 mmol/L (3.5-5.1); SODIUM 143 mmol/L (136-145); TCO2 23 mmol/L (25-35); TOTAL BILIRUBIN < 0.15 mg/dL (0.20-1.00); TOTAL PROTEIN 6.3 g/dL (6.3-8.3)
[2018-11-26] MEDS: DIFLUCAN PO SCH ×4 (09:44→20:45)
[2018-11-26] MEDS: PERICOLACE PO SCH (09:44)
[2018-11-26] MEDS: PROZAC PO SCH (09:45)
[2018-11-26] MEDS: FERROUS SULFATE PO SCH ×2 (09:45→20:46)
[2018-11-26] MEDS: LOPRESSOR PO SCH ×3 (09:45→20:46)
[2018-11-26] MEDS: MYCOSTATIN POWDER TOP SCH ×3 (09:45→20:52)
[2018-11-26] MEDS: MYCOSTATIN OINTMENT TOP SCH ×2 (09:46→20:50)
[2018-11-26] MEDS: ROCEPHIN 1 GM in NS 50 ML IV SCH (12:39)
--- NOTE | 2018-11-26 16:40 | PROGRESS NOTE ---
DATE: 11/26/2018 SUBJECTIVE: Patient reports feeling fine. Denies any fever or chills. OBJECTIVE: Vital Signs: Temperature 98.3 degrees, heart rate 63, respiratory rate 16, blood pressure 101/59, O2 saturation 100% on room air. General Examination: This is a chronically ill- appearing, 53-year-old male, lying in bed, in no acute distress. Cardiovascular: S1, S2 heard. No murmurs, gallops, or rubs. Regular rate and rhythm. Respiratory: Clear bilaterally to auscultation. No work of breathing or using accessory muscles. Abdomen: Soft, mild tenderness to palpation in the suprapubic area. No signs of peritoneal irritation. Genitourinary: Garcia catheter in place connected to a continuous bladder irrigation with some bloody urine. Neurological: Patient is an alert and oriented x3. Follow commands. LABORATORY DATA: White cell count 4.56, hemoglobin 8.4, hematocrit 27.4, platelets 282,000. BMP remarkable for creatinine 1.6 and hemoglobin A1c 11.1. The urine culture showed no growth. ASSESSMENT AND PLAN: 1. Hematuria with history of neurogenic bladder with frequent self catheterization. The patient has been evaluated by Urology. They think that the bleeding is because of traumatic catheterization. At this time, he has been recommended continuous bladder irrigation. At this point, we will continue with antibiotics. Urine culture did not show any infection. I prefer while he is here to continue with antibiotics. We will continue following recommendations from Urology. 2. Iron-deficiency anemia. We will continue to check CBC daily. 3. Uncontrolled diabetes mellitus type 2. Hemoglobin A1c is 11.1. Patient advised to have a better control of diabetes. We will continue with Accu-Chek before meals and also at bedtime and sliding scale insulin as well. 4. Chronic kidney disease stage 3. Creatinine is better. We will continue to monitor BMP. 5. Gastroesophageal reflux disease. We will continue with Protonix. 6. Anxiety and depression. We will continue with home medications. 7. Disposition we will continue to monitor this patient closely. cc: MD Lee Rust MD
[2018-11-26] MEDS: REMERON PO SCH (20:45)
[2018-11-26] MEDS: RISPERDAL PO SCH (20:46)
[2018-11-26] MEDS: MELATONIN PO SCH (20:46)
[2018-11-27] MEDS: HUMULIN R SUBQ SCH ×4 (06:46→22:26)
[2018-11-27] MEDS: NS 1,000 ML IV SCH ×2 (06:46→17:16)
[2018-11-27] MEDS: HUMULIN 70/30 SUBQ SCH ×3 (06:52→17:16)
[2018-11-27] MEDS ORDERED: INSULIN PEN NEEDLES ONE (07:04)
[2018-11-27] MEDS: LOPRESSOR PO SCH ×3 (08:51→22:26)
[2018-11-27] MEDS: PROZAC PO SCH (08:51)
[2018-11-27] MEDS: PERICOLACE PO SCH (08:51)
[2018-11-27] MEDS: FERROUS SULFATE PO SCH ×2 (08:51→22:25)
[2018-11-27] MEDS: MYCOSTATIN OINTMENT TOP SCH ×2 (08:51→22:30)
[2018-11-27] MEDS: MYCOSTATIN POWDER TOP SCH ×3 (08:51→22:31)
[2018-11-27] MEDS: DIFLUCAN PO SCH ×4 (08:51→22:25)
[2018-11-27 11:51] LABS: BASO# 0.04 X1000 (0.0-0.2); BASO% 0.8 % (0.0-0.8); EOS# 0.51 X1000 (0.0-0.7); EOS% 9.7 % (0.0-10.0); HEMATOCRIT 29.3 % (42.0-52.0); HEMOGLOBIN 8.8 g/dL (14.0-18.0); LYMPH# 1.01 X1000 (1.2-3.4); LYMPH% 19.1 % (20.5-51.1); MCV 79.8 FL (81-99); MONO# 0.32 X1000 (0.11-0.59); MONO% 6.1 % (1.7-9.3); NEUT% 64.3 % (42.2-75.2); PLT 294 X1000 (130-400); RBC 3.67 XMIL (4.7-6.1); RDW 17.5 % (11.5-14.5); WBC 5.28 X1000 (4.8-10.8)
[2018-11-27 12:10] LABS: CALCIUM 8.9 mg/dL (8.8-10.2); CREATININE 1.5 mg/dL (0.7-1.2); POTASSIUM 4.5 mmol/L (3.5-5.1)
--- NOTE | 2018-11-27 13:47 | PROGRESS NOTE ---
DATE: 11/26/2018 Mr. Santana reports no events overnight. He denies significant discomfort from Garcia catheter. He has continued bladder irrigation has been nearly turned off and urine is crystal clear. T 97.8 degrees, P 67, BP 110/62. His urine output was recorded in amount of 2800 mL. General: No acute distress. Abdomen: Nontender, nondistended. Bladder nontender palpation. Garcia catheter is in place draining straw-colored urine. Continue bladder irrigation is barely dripping. PERTINENT LABS: White cell count is 5000, hematocrit 27, creatinine is 1.6. ASSESSMENT/PLAN: 53-year-old male who has neurogenic bladder which is managed with intermittent catheterization. He developed hematuria with clots and went into retention. I have discussed with the patient again that it was likely due to traumatic catheterization but could be for other reasons and he would benefit from cystoscopy in the office in the near future. I have discussed with him that I would stop his continuous bladder irrigation and we will remove Garcia catheter on 11/27/2018. At that time if he is able to catheterize himself without developing significant hematuria then from the urologic standpoint he can be discharged and follow up with me in clinic for cystoscopy. He voiced understanding. PLAN: Remove Garcia catheter on 11/27/2018. He will then catheterize himself and if able to do so he will be clear for discharge from urology standpoint. cc: MD Lee Contreras MD
[2018-11-27] MEDS: ROCEPHIN 1 GM in NS 50 ML IV SCH (13:55)
--- NOTE | 2018-11-27 14:11 | PROGRESS NOTE ---
DATE: 11/27/2018 SUBJECTIVE: The patient reports feeling fine. As per nursing staff, the patient is not having any more hematuria and actually the continuous bladder irrigation is going to be removed by Urology recommendation. OBJECTIVE: Vital Signs: Temperature 97.9 degrees, heart rate 67, respiratory rate 16, blood pressure 113/80, O2 saturation 99% on room air. General Examination: This is a chronically ill- appearing, 53-year-old male, lying in bed in no acute distress. Cardiovascular exam: S1, S2 heard. No murmurs, gallops, or rubs. Regular rate and rhythm. Respiratory exam: Clear bilaterally to auscultation. No work of breathing or using accessory muscles. Abdomen: Soft. A little bit tender to palpation in the suprapubic area. No signs of peritoneal irritation. Genitourinary: Garcia catheter in place connected to a continuous bladder irrigation still, and the urine is completely clear. Neurological exam: Patient is alert and oriented x3. Moves 4 extremities. LABORATORY DATA: The glucose from today is 229. The labs are still pending from today. ASSESSMENT AND PLAN: 1. Hematuria with history of neurogenic bladder with frequent self catheterization. Urology has evaluated this patient. He was started on continuous bladder irrigation that is going to be removed today. He is not having any more hematuria. He is going to start self catheterization. We are going to talk to them tomorrow to see if they are planning to do any cystoscopy here as an inpatient, or can be done as an outpatient. 2. Iron deficiency anemia. Aware. The hemoglobin is 8.4, which is stable. We will continue to monitor. 3. Uncontrolled diabetes mellitus type 2. Hemoglobin A1c is 11. We will continue with sliding scale insulin and Accu-Chek before meals and also at bedtime. 4. Chronic kidney disease stage III. Creatinine is better. We will continue to monitor his basic metabolic panel daily. 5. Gastroesophageal reflux disease. We will continue with Protonix by mouth. 6. Anxiety and depression. The patient will continue home medication. DISPOSITION: At this point, we are following the lead from Urology. Will be discharged once he is cleared by them. cc: MD Lee Rust MD MTDD
[2018-11-27] MEDS: PROTONIX PO SCH (22:21)
[2018-11-27] MEDS: MELATONIN PO SCH (22:24)
[2018-11-27] MEDS: RISPERDAL PO SCH (22:24)
[2018-11-27] MEDS: REMERON PO SCH (22:26)
[2018-11-28] MEDS: PROTONIX PO SCH (06:06)
[2018-11-28 06:36] LABS: BASO# 0.04 X1000 (0.0-0.2); BASO% 0.8 % (0.0-0.8); EOS# 0.57 X1000 (0.0-0.7); EOS% 10.8 % (0.0-10.0); HEMATOCRIT 28.5 % (42.0-52.0); HEMOGLOBIN 8.6 g/dL (14.0-18.0); LYMPH# 1.06 X1000 (1.2-3.4); LYMPH% 20.2 % (20.5-51.1); MCH 23.9 PG (27-31); MCHC 30.2 g/dL (33-37); MCV 79.2 FL (81-99); MONO# 0.42 X1000 (0.11-0.59); MPV 9.9 FL (7.4-10.4); NEUT# 3.17 X1000 (1.4-6.5); NEUT% 60.2 % (42.2-75.2); PLT 333 X1000 (130-400); RDW 17.8 % (11.5-14.5); WBC 5.26 X1000 (4.8-10.8)
[2018-11-28] MEDS: HUMULIN 70/30 SUBQ SCH ×2 (06:45→12:34)
[2018-11-28] MEDS: HUMULIN R SUBQ SCH ×2 (06:46→11:52)
[2018-11-28 06:55] LABS: CREATININE 1.6 mg/dL (0.7-1.2); POTASSIUM 4.8 mmol/L (3.5-5.1)
[2018-11-28] MEDS: FERROUS SULFATE PO SCH (08:00)
[2018-11-28] MEDS: DIFLUCAN PO SCH ×2 (08:00→12:34)
[2018-11-28] MEDS: MYCOSTATIN POWDER TOP SCH (08:00)
[2018-11-28] MEDS: PERICOLACE PO SCH (08:00)
[2018-11-28] MEDS: MYCOSTATIN OINTMENT TOP SCH (08:00)
[2018-11-28] MEDS: LOPRESSOR PO SCH (08:00)
[2018-11-28] MEDS: PROZAC PO SCH (08:00)
--- NOTE | 2018-11-28 11:03 | PROGRESS NOTE ---
DATE: 11/28/2018 SUBJECTIVE: Mr. Santana reports he has done great. He has been able to catheterize without difficulty. He states he is ready to go home. OBJECTIVE: Vital Signs: Temperature 98.1 degrees. Pulse 64. Blood pressure 121/73. General: No acute distress. Abdomen: Nontender, nondistended. PERTINENT LABORATORY DATA: White cell count of 5000, creatinine is 1.6 which is around his baseline. ASSESSMENT/PLAN: 53-year-old male with neurogenic bladder who perform self catheterization. He came in with hematuria and clots likely attributed to traumatic catheterization. I have discussed with the patient that he would benefit from outpatient cystoscopy to make sure he did not have another reason for gross hematuria. He has been noncompliant in the past and I have explained to him the importance of following up with cystoscopy. I have provided him with my contact information. PLAN: 1. No urologic intervention needed during hospitalization. Patient was instructed to call us in the office and set up cystoscopy at his convenience but sooner than later. He voiced understanding and says he would do so. 2. Please call with questions. cc: MD Lee Contreras MD
[2018-11-28 11:19] VITALS: BP 134/78
[2018-11-28] MEDS: ROCEPHIN 1 GM in NS 50 ML IV SCH (12:34)
[2018-11-28] MEDS ORDERED: HUMALOG IV ONE (13:17)
--- NOTE | 2018-11-28 14:24 | DISCHARGE SUMMARY ---
ADMISSION DATE: 11/25/2018 DISCHARGE DATE: 11/28/2018 PRIMARY CARE PHYSICIAN: None. PRIMARY UROLOGIST: Dr. Marte. PRIMARY PANEL MACHINE OPERATOR: Dr. King. ADMISSION DIAGNOSES: 1. Hematuria with history of neurogenic bladder and frequent self- catheterization along with history of benign prostatic hypertrophy, obstructive uropathy and urine retention. 2. Iron deficiency anemia likely with some acute blood loss anemia secondary to hematuria. 3. Uncontrolled diabetes type 2. 4. Chronic kidney disease stage 3. 5. Gastroesophageal reflux disease. 6. Anxiety and depression. 7. A fungal infection of the groin. DISCHARGE DIAGNOSIS: 1. Hematuria with neurogenic bladder with self-catheterization. 2. Iron deficiency anemia likely with some acute blood loss anemia secondary to hematuria. 3. Uncontrolled diabetes type 2. 4. Chronic kidney disease stage 3. 5. Gastroesophageal reflux disease. 6. Anxiety and depression. 7. A fungal infection of the groin. SUMMARY OF FINDINGS: This is a 53-year-old male who presented to the ER and had noted about 3 or 4 drops of blood on the end of the urethra when he self-catheterized did not pay any attention until the morning of arrival when he drained his bladder and it was dark bloody and had difficulty passing the catheter as well. He said it felt different. Had been having some left lower backache over the last 3 to 4 days prior to arriving but denied any fever, chills. He was also noted to have a rash in the left foot and a fungal type rash in the groin area so he was transferred from [facility] ER to [facility] for urology consultation. They placed an indwelling urinary catheter and he then began self-catheterizing himself. Urology did not feel surgical intervention was required at this time. They did continuous bladder irrigation and titrated as needed to keep the urine pink and free of clot. He tolerated that well. His hemoglobin and hematocrit has remained stable today being 8.6 and 28.5. When he arrived, it was 8.4 and 27.6 so it is now felt that he can safely be discharged home. DISCHARGE MEDICATIONS: Vitamin D 50,000 units p.o. every 7 days, 325 mg p.o. b.i.d., fluconazole 100 mg p.o. 4 times daily, Prozac 10 mg p.o. q.a.m., Humulin 70/30 20 units subcu a.c., melatonin 5 mg p.o. at bedtime, metoprolol 25 mg p.o. b.i.d., mirtazapine 15 mg p.o. at bedtime, pantoprazole 40 mg p.o. daily, risperidone 1 mg 1-1/2 tablets p.o. at bedtime, senna S 1 p.o. daily, aspirin 81 mg p.o. daily, Cipro 500 mg p.o. b.i.d. FOLLOWUP: He will need to follow up with urologist and his primary care physician as directed. All discharge instructions have been reviewed with the patient and verbalized understanding. TIME SPENT: 33 minutes. Dictated by MONIE Oscar for Nick Solo MD Addendum: Patient seen and examined by myself. Agree with MONIE note. It reflects my assessment and plan. Patient is being discharged in stable condition. Will be seen by PCP in a week. cc: MONIE Oscar MD [facility]
[2018-11-29] MEDS ORDERED: VITAMIN D PO SCH (09:00)
== END 2018-11-28 13:35 | disposition home or self-care (01) | DRG 699 ==
LOC: P.ED 10:06 → SUATTDRO 14:06 → 4N 14:06
PROVIDERS: ADMIT Internal Medicine; ATTEND Internal Medicine
CPT/HCPCS: 74176; 80048; 80053; 81001; 82948; 83036; 85025; 87088; A9270; J0696; J1815; J7030; XXXXX

== ENCOUNTER 2018-12-30 05:37 | Inpatient (IN) ==
[2018-12-30] MEDS ORDERED: TORADOL IV ONE (05:58)
[2018-12-30] MEDS ORDERED: ZOFRAN IV ONE (05:58)
[2018-12-30] MEDS ORDERED: NS 1,000 ML IV ONE ×2 (05:58→08:22)
--- NOTE | 2018-12-30 06:10 | PROVIDER DOCUMENTATION ---
HPI-General Adult - General Chief Complaint: Flank Pain Stated Complaint: KIDNEY PAIN Time Seen by Provider: 12/30/18 05:50 Source: patient Allergies/Adverse Reactions: Patient Allergies Allergy/AdvReac Type Severity Reaction Status Date / Time No Known Allergies Allergy Verified 12/30/18 06:00 Home Medications: Home Medication List Medication Instructions Recorded Confirmed Last Taken Type Aspirin [Aspir-Low] 81 mg PO DAILY 11/25/18 12/30/18 11/24/18 History Insulin Humulin 70/30 [Humulin 20 units SQ AC 11/25/18 12/30/18 11/25/18 History 70/30] Insulin Humulin 70/30 [Humulin 20 units SQ ACS 11/25/18 12/30/18 11/24/18 History 70/30] Metoprolol Tartrate 25 mg PO BID 11/25/18 12/30/18 Unknown History - History of Present Illness -Gen Adult Nature of Presenting Problems: 53 y/o M presents to the ED complaining of flank pain and dysuria. States this began last night and has persisted. With this has had slight nausea but no emesis, no fever, no diarrhea. Has had multiple prior uti's and this feels similar. No urethral discharge or known STD exposure. Review of Systems - Adult - REVIEW OF SYSTEMS - ADULT Constitutional: reports: no symptoms reported Eyes: reports: no symptoms reported Ears, Nose, Mouth & Throat: reports: no symptoms reported Cardiovascular: reports: no symptoms reported Respiratory: reports: no symptoms reported Gastrointestinal: reports: nausea. denies: abdominal pain, diarrhea, vomiting Genitourinary: reports: dysuria, flank pain Musculoskeletal: reports: no symptoms reported Integumentary: reports: no symptoms reported Neurological: reports: no symptoms reported Psychiatric: reports: no symptoms reported Endocrine: reports: no symptoms reported Hematologic/Lymphatic: reports: no symptoms reported Allergic/Immunologic: reports: no symptoms reported All Other Systems: Reviewed and Negative Past History - Adult - PAST MEDICAL HISTORY-ADULT Review of Records: reports: Old Records Reviewed, Nursing Assessment Review, Medications Reviewed, Social history reviewed & non-contributory. Major Childhood Illnesses: reports: denies history Cardiovascular: reports: HTN Respiratory: reports: asthma Gastrointestinal: reports: denies history Obstetrical/Gynecological: reports: denies history Genitourinary: reports: kidney disease, kidney stones, stenosis/obstruction, chronic UTI's Musculoskeletal: reports: chronic pain Neurological: reports: denies history Psychiatric: reports: anxiety Endocrine/Immune: reports: Diabetes Other Conditions: reports: denies history - PRIOR SURGERIES/PROCEDURES Surgical/Procedure History: reports: reviewed, not pertinent, other (prostate) - IMMUNIZATION STATUS Childhood Immunizations: See Nurse Assessment Flu Vaccine: See Nurse Assessment - FAMILY HISTORY Family History: reviewed, not pertinent Physical Exam-General - PHYSICAL EXAM-ADULT Initial Vital Signs Reviewed: Yes - CONSTITUTIONAL General Appearance: appears well, alert, no apparent distress - EYES Eyes: PERRL/EOMI, pink conjunctivae - HEAD, EARS, NOSE, MOUTH & THROAT HENMT: normocephalic/atraumatic, moist mucous membranes, normal ENT inspection - NECK Neck: non-tender, full range of motion, supple - RESPIRATORY Respiratory: chest non-tender, lungs clear, normal breath sounds - CARDIOVASCULAR Cardiovascular: normal peripheral pulses, regular rate, rhythm, no edema - GASTROINTESTINAL (ABDOMEN) Abdominal Exam: non tender, soft - MUSCULOSKELETAL Back Exam: normal inspection, no vertebral tenderness, CVA tenderness (mild right) Extremity: normal range of motion, non-tender, no pedal edema - SKIN Integumentary: normal color, normal turgor, warm/dry - NEUROLOGIC Neurologic: grossly normal, no motor/sensory deficits - PSYCHIATRIC Psych/Mental Status: normal mood/affect, normal thought content, normal thought process, oriented x 3 Progress - PLAN OF CARE/RESULTS Progress/Plan/Lab Results: Vital Signs - 8 hr 12/30/18 05:41 Temperature 97.7 F Pulse Rate 68 Respiratory Rate 16 Blood Pressure 106/61 O2 Sat by Pulse Oximetry 100 Orders Category Date Time Status IV Insertion ORDERED Care 12/30/18 05:[address] ABDOMEN/PELVIS W/O CONTRAST [CT] Stat Exams 12/30/18 05:58 Ordered CBC WITH DIFF [HEME] Stat Lab 12/30/18 05:58 Uncollected COMPREHENSIVE METABOLIC PANEL [CHEM] Stat Lab 12/30/18 05:58 Uncollected LIPASE [CHEM] Stat Lab 12/30/18 05:58 Uncollected URINALYSIS W/POSS RFLX CULT [URINALYSIS] Stat Lab 12/30/18 05:58 Uncollected 0.9% Sodium Chloride Inj [Ns] 1,000 ml Med 12/30/18 05:58 Active IV 999 mls/hr Ketorolac [Toradol] Med 12/30/18 05:58 Discontinued 30 mg IV NOW ONE Ondansetron [Zofran] Med 12/30/18 05:58 Discontinued 4 mg IV NOW ONE flank pain and dysuria, will further evaluate for causes including but not limited to uti, pyelo, ureteral stone, appendcitis, urethritis Result Diagrams: 12/30/18 06:30 12/30/18 06:30 - CHANGE OF SHIFT REPORT (ED Provider) 1 Report Given and Care Transferred to:: Dr. Milton Items Pending: Labs, CT/MRI Results, Other (and final disposition) Departure - Departure Date of Disposition Decision: 12/30/18 Time of Disposition Decision: 08:30 DIAGNOSIS: Chronic cystitis, DKA (diabetic ketoacidoses) Disposition: ADMITTED INPATIENT 09 Certified Medical Emergency: Emergent Condition: Good Referrals and Follow-Ups: Jocelyn Hoffman CRNP [Primary Care Provider] - - Critical Care Note This patient required my direct & personal management of CC.: No Attestation - Physician/ PAULA Attestation Patient care was provided by Advanced Practice Provider:: No The physician spent face to face time with patient:: Yes Advanced Practice Provider documentation review:: Supervising physician onsite and consulted in the evaluation and care of this patient. The physician did have a face to face encounter with the patient.
[2018-12-30 06:30] LABS: URINE SOURCE CLEAN CATCH
[2018-12-30 06:37] LABS: BILIRUBIN URINE NEGATIVE (NEGATIVE); BLOOD URINE LARGE (NEGATIVE); COLOR ORANGE; GLUCOSE URINE >1000 mg/dL (NEGATIVE); KETONE URINE 40 mg/dL (NEGATIVE); LEUKOCYTES URINE LARGE (NEGATIVE); NITRITE URINE POSITIVE (NEGATIVE); PH URINE 5.5; PROTEIN URINE 100 mg/dL (NEGATIVE); SP GRAVITY URINE 1.017; TURBIDITY URINE TURBID (CLEAR); UR EPITHELIAL CELLS <10 /HPF (<10); URINE BACTERIA 4+ /HPF; URINE RBC TNTC /HPF (<10); URINE WBC TNTC /HPF (<10); UROBILINOGEN URINE NORMAL (NORMAL)
[2018-12-30 06:58] LABS: BASO# 0.06 X1000 (0.0-0.2); EOS# 0.41 X1000 (0.0-0.7); EOS% 6.5 % (0.0-10.0); HEMATOCRIT 29.5 % (42.0-52.0); HEMOGLOBIN 8.7 g/dL (14.0-18.0); LYMPH# 0.66 X1000 (1.2-3.4); LYMPH% 10.5 % (20.5-51.1); MCH 23.1 PG (27-31); MCHC 29.5 g/dL (33-37); MCV 78.5 FL (81-99); MONO# 0.55 X1000 (0.11-0.59); MONO% 8.8 % (1.7-9.3); MPV 10.1 FL (7.4-10.4); NEUT# 4.59 X1000 (1.4-6.5); NEUT% 73.2 % (42.2-75.2); PLT 432 X1000 (130-400); RBC 3.76 XMIL (4.7-6.1); RDW 16.2 % (11.5-14.5); WBC 6.27 X1000 (4.8-10.8)
--- NOTE | 2018-12-30 07:12 | Diag Imaging Result Doc PS360 ---
CT ABDOMEN/PELVIS W/O CONTRAST - 12/30/2018 INDICATION: flank pain COMPARISON: 11/25/2018 FINDINGS: The lung bases are clear and the heart size is normal. There is severe distention of the stomach with fluid. Very little solid material. There is moderate bilateral hydronephrosis and hydroureter. There is severe diffuse wall thickening of the urinary bladder with surrounding inflammation. This has worsened since prior but was present previously. Stable nodular irregularity of the posterior surface of the urinary bladder. No bowel obstruction or inflammation. Rectum is normal. Prostate is atrophic or absent. No radiodense renal stones. Bones are intact. IMPRESSION: 1. Worsening diffuse urinary bladder wall thickening and inflammation compatible with chronic cystitis. 2. Mucosal irregularity of the posterior wall of the urinary bladder. Malignancy is suspected. 3. Bilateral hydroureteronephrosis. Worsened since prior. 4. Severe distention of the stomach mainly with fluid. Compatible with severe gastroparesis or gastric outlet obstruction. No perforation. This exam was performed using automated exposure control, adjustment of mA or kV according to patient size, and/or use of iterative reconstruction technique Electronically signed by Dago Rod 12/30/2018 7:10 AM
[2018-12-30 07:40] LABS: ALBUMIN 4.2 g/dL (3.5-5.0); CALCIUM 9.3 mg/dL (8.8-10.2); CREATININE 2.3 mg/dL (0.7-1.2); POTASSIUM 6.4 mmol/L (3.5-5.1); TOTAL BILIRUBIN 0.4 mg/dL (0.20-1.00); TOTAL PROTEIN 8.3 g/dL (6.3-8.3)
[2018-12-30] MEDS ORDERED: HUMULIN R IV ONE ×2 (08:08→09:40)
[2018-12-30] MEDS ORDERED: HUMULIN R 100 UNIT in NS 100 ML IV SCH ×5 (08:30→09:40)
[2018-12-30 08:36] LABS: BLOOD TYPE ARTERIAL; SAMPLE BLOOD
[2018-12-30 08:37] LABS: ALLEN TEST YES; BE -14.9 mmoll (-3.0-3.0); HCO3-(ACT) 13.3 mmoll (20.0-26.0); METHB 0.4 % (0.0-1.5); MODALITY ROOM AIR; O2(CT) 11.4 mL/dL (15.0-23.0); O2HB 97.7 % (95.0-99.0); PCO2(98.6) 22 mmHg (35-45); PO2(98.6) 121 mmHg (60-100); THB 8.1 g/dL (11.5-17.4); pH(98.6) 7.28 (7.35-7.45)
[2018-12-30] MEDS: ROCEPHIN 1 GM in NS 50 ML IV SCH (08:48)
[2018-12-30] MEDS ORDERED: S W I IV PRN (09:40)
[2018-12-30] MEDS ORDERED: MAGNESIUM SULFATE IV PRN (09:40)
[2018-12-30] MEDS ORDERED: POTASSIUM CHLORIDE 20 MEQ in NS 100 ML IV PRN (09:40)
[2018-12-30] MEDS ORDERED: ZOFRAN IV PRN (09:40)
[2018-12-30] MEDS ORDERED: NS 1,000 ML IV SCH (09:40)
[2018-12-30] MEDS ORDERED: SODIUM PHOSPHATE 30 MMOL in D5W 250 ML IV PRN (09:40)
[2018-12-30] MEDS ORDERED: POTASSIUM CHLORIDE 20% LIQUID PO PRN (09:40)
[2018-12-30] MEDS ORDERED: SODIUM BICARBONATE 8.4% 100 MEQ in STERILE WATER INJ. 500 ML IV PRN (09:40)
[2018-12-30] MEDS ORDERED: POTASSIUM CHLORIDE 10% LIQUID PO PRN (09:40)
[2018-12-30] MEDS ORDERED: COMPAZINE IV PRN (09:40)
[2018-12-30] MEDS ORDERED: D5 NS 1,000 ML IV PRN (09:40)
[2018-12-30] MEDS ORDERED: TYLENOL PO PRN (09:40)
[2018-12-30] MEDS: NS 1,000 ML IV SCH ×5 (10:27→18:24)
[2018-12-30] MEDS: ASPIRIN EC PO SCH (10:29)
[2018-12-30] MEDS: LOPRESSOR PO SCH ×2 (10:29→21:04)
[2018-12-30 10:51] LABS: CALCIUM 8.4 mg/dL (8.8-10.2); CREATININE 2.1 mg/dL (0.7-1.2); MAGNESIUM 2.7 mg/dL (1.5-2.7); PHOSPHORUS 3.1 mg/dL (2.7-4.5); POTASSIUM 5.5 mmol/L (3.5-5.1)
--- NOTE | 2018-12-30 11:23 | HISTORY AND PHYSICAL ---
PRIMARY CARE PROVIDER: None. CHIEF COMPLAINT: Painful urination. HISTORY OF PRESENT ILLNESS: Mr. Santana is a 53-year-old male, who carries a past medical history of neurogenic bladder with frequent self-catheterizations, along with BPH, obstructive uropathy and urinary retention, iron deficiency anemia, uncontrolled diabetes type 2, chronic kidney disease stage III, GERD, anxiety and depression, recently treated for a fungal infection of the groin. He reported to the ED complaining of dysuria and flank pain that began the night before. Upon examination, the patient was quite sleepy. He had to be awakened several times during the interview just to answer simple questions. He was trying to refuse to be put on an insulin drip. He was found to be in DKA, as well as having urinary tract infection. He was started on the DKA protocol and initiated on IV antibiotics. He reported that his blood sugar was high at 4 a.m. and he took insulin, and then he told me that he had not checked his blood sugars and that he had not had insulin, so unsure if he has been checking his sugars regularly. He could tell me his name and date of , the year, President and location, and was somewhat irritable. We will admit him to ICU as we have no CIC beds. Continue on DKA protocol and IV antibiotics. REVIEW OF SYSTEMS: Twelve-point review of systems hard to obtain secondary to the patient being somewhat uncooperative and sleepiness. PAST MEDICAL HISTORY: 1. History of neurogenic bladder with frequent self-catheterizations. 2. Benign prostatic hypertrophy. 3. Obstructive uropathy and urinary retention. 4. Iron deficiency anemia. 5. Uncontrolled diabetes. 6. Chronic kidney disease. 7. Gastroesophageal reflux disease. 8. Anxiety and depression. 9. Chronic kidney disease stage III. 10. Treated for suicidal and homicidal ideations back in September of 2018. PAST SURGICAL HISTORY: 1. Prostate surgery. 2. Cystoscopy with bilateral retrograde pyelogram. FAMILY HISTORY: Mother with hypertension. Brother with diabetes. Father with no medical conditions. SOCIAL HISTORY: Currently unknown. Per past records, he has been for 25 years, recently earlier this year. At 1 point was homeless and living out of a car or stays with friends. ALLERGIES: No known drug allergies. HOME MEDICATIONS: Have not been verified. PHYSICAL EXAMINATION: VITAL SIGNS: Temperature is 97.7 degrees, heart rate 77, respirations 19, blood pressure 108/64, O2 is 100% on room air. GENERAL: Mr. Santana is an irritable and sleepy, 53-year-old male, who is lying on the stretcher in no acute distress. HEENT: Atraumatic, normocephalic. PERRL. NECK: Supple. Trachea midline. CV: S1, S2 appreciated. No murmurs, gallops, or rubs noted. No JVD. No lower extremity edema. Bilateral pedal pulses were palpable. RESPIRATORY: Lung sounds clear bilaterally. GI: Flat soft, nontender, nondistended. Positive bowel sounds 4 quads. CVA. He did complain of flank pain, however could not make this reproducible. NEUROLOGIC: Patient was sleepy, irritable. He was able to tell me his name, date of , location, year and President. However, he did frequently fall asleep and had to be shook back awake. DIAGNOSTIC DATA: Abdomen and pelvis CT: Worsening diffuse urinary bladder wall thickening and inflammation compatible with chronic cystitis, mucosal irregularity of the posterior wall of the urinary bladder. Bilateral hydroureteronephrosis worsened since prior, severe distention of the stomach mainly with fluid compatible with severe gastroparesis or gastric outlet obstruction. No perforation. LABORATORY DATA: White count 6, H and H 8.7 and 29. ABG: A pH 7.28, CO2 22, O2 121, bicarbonate 13, base excess -14.9, lactate 1. Sodium 125, potassium 6.4, BUN 45, creatinine 2.3. Initial blood sugar 863. Urinalysis shows 4+ bacteria, scy-epbrrqye-zr-count WBCs, nitrate positive, large blood. Acetone is small. ASSESSMENT AND PLAN: 1. Diabetic ketoacidosis. We will admit the patient to the intensive care unit. He is somewhat sleepy and irritable. Initiate him on a diabetic ketoacidosis protocol. 2. Hematuria with worsening urinary bladder wall thickening and inflammation compatible with chronic cystitis, as well as mucosal irregularity. At the posterior wall of the bladder, malignancy is suspected and worsening bilateral hydroureteronephrosis that has worsened since his prior CT. We will consult Dr. Marte and insert a Garcia catheter. 3. Severe gastroparesis, aware. Have him on nothing by mouth for now. The patient was not currently complaining of any nausea or vomiting. 4. Urinary tract infection. Will initiate on intravenous Rocephin and await urine culture. 5. Acute kidney injury on chronic kidney disease. We will continue with intravenous hydration. 6. Gastroesophageal reflux disease. 7. Anxiety and depression. 8. Recent admission for suicidal and homicidal ideations back in September of 2018. Further recommendations to follow physician evaluation, laboratory and diagnostic data. Dictated by MONIE Chaudhary for Nina Damian MD cc: MD Gustabo Chang MD I performed a face to face encounter on the patient. I reviewed all labs and imaging on the patient. I agree with the H&P as dictated. [facility]
[2018-12-30 12:47] LABS: HEMOGLOBIN A1C 11.1 % (4.8-6.0)
--- NOTE | 2018-12-30 16:06 | CONSULTATION ---
DATE OF CONSULTATION: 12/29/2018 ATTENDING AND REFERRING: Hospitalist. HISTORY OF PRESENT ILLNESS: This 53-year-old male has a long history of a neurogenic bladder, urine retention, poorly-controlled diabetes was admitted with diabetic ketoacidosis and a probable urinary tract infection. Evaluation with a CT scan revealed bilateral hydroureteronephrosis down to the bladder that was distended with very thick gunn. There were thickening of the mucosa as well. The patient has a history of left hydronephrosis as was noted on previous CT scans and renal ultrasounds. The abnormality of the bladder mucosa was noted in November 2014 and he had undergone a bladder biopsy at that time and the pathology was benign. The patient states that he is feeling better but still has a bilateral flank pain. PAST MEDICAL HISTORY: 1. Diabetes. 2. History of renal stones, last passed a stone about 5 years ago. 3. History of hydronephrosis. 4. Chronic kidney disease. 5. Gastroesophageal reflux disease. 6. Anxiety. CURRENT MEDICATIONS: Documented on the chart. PAST SURGICAL HISTORY: 1. Cysto bilateral retrogrades with bladder biopsies in 2014. 2. Transurethral resection of the prostate that revealed 15 gram of benign tissue in 2014. SOCIAL HISTORY: There is no tobacco or alcohol use. He apparently lives with a friend. ALLERGIES: No known drug allergies. REVIEW OF SYSTEMS: He states he does clean intermittent catheterization around every 5 hours to empty his bladder. There is no history of stroke or seizures. He does have a history of suicidal ideation but according to this chart that has completely resolved. PHYSICAL EXAMINATION: General: A thin, age apparent, normally developed, white male, oriented in all ways and cooperative. HEENT: Normal for age. Lungs: Clear. Cardiovascular: Regular rate and rhythm. Abdomen: Flat soft, nontender. No hepatosplenomegaly or masses. Normal bowel sounds. Back: Mild CVA tenderness. No guarding or rebound. Genitourinary: Circumcised male. No lesions or discharges. Both testes down. Scrotal exam is normal. No inguinal hernias. Rectal: Normal sphincter tone. Prostate around 40 gram smooth and symmetric. Extremities: No clubbing, cyanosis, or edema. Neurologic: No focal deficits. LABORATORY EVALUATION: He has a white count of 6.27, hemoglobin 8.7, hematocrit of 29.5, and platelets are 432,000. Serum electrolytes have a sodium of 128, potassium 5.5, chloride 91 bicarb 14 BUN 45, creatinine 4.1, serum glucose was 838. A urinalysis had too numerous to count white cells and red cells. 4+ bacteria. Urine cultures are pending. IMPRESSION: 1. Impression neurogenic bladder with urinary retention., 2. Bilateral hydroureteronephrosis. 3. Distended bladder with thickened gunn. 4. Renal insufficiency. 5. Bilateral flank pain. RECOMMENDATIONS: 1. Placing a Garcia catheter to decompress the bladder and bilateral kidneys. This should allow his hydronephrosis to resolve and his renal function to get backup operator to his baseline (creatinine around 1.5). 2. Check urine cultures with culture specific IV antibiotics when available. Thank you for this consultation. cc: Kulwinder Auguste MD [facility]
[2018-12-30 16:17] LABS: CALCIUM 8.3 mg/dL (8.8-10.2); CREATININE 1.7 mg/dL (0.7-1.2); MAGNESIUM 2.3 mg/dL (1.5-2.7); PHOSPHORUS 2.9 mg/dL (2.7-4.5); POTASSIUM 5.2 mmol/L (3.5-5.1)
[2018-12-30] MEDS ORDERED: LEVEMIR SUBQ ONE (18:07)
[2018-12-30] MEDS ORDERED: INSULIN PEN NEEDLES ONE (18:36)
[2018-12-30] MEDS: HUMULIN R SUBQ SCH (21:02)
[2018-12-30] MEDS: HEPARIN SUBQ SCH (21:02)
[2018-12-31] MEDS: NS 1,000 ML IV SCH ×2 (01:05→10:50)
[2018-12-31 04:48] LABS: ALLEN TEST YES; BE -9.1 mmoll (-3.0-3.0); BLOOD TYPE ARTERIAL; HCO3-(ACT) 17.8 mmoll (20.0-26.0); METHB 1.1 % (0.0-1.5); O2(CT) 13.5 mL/dL (15.0-23.0); O2HB 96.3 % (95.0-99.0); PCO2(98.6) 31 mmHg (35-45); PO2(98.6) 109 mmHg (60-100); SAMPLE BLOOD; SAO2 99.5 % (95.0-100.0); THB 9.8 g/dL (11.5-17.4); pH(98.6) 7.32 (7.35-7.45)
[2018-12-31 04:49] LABS: MODALITY ROOM AIR
[2018-12-31 06:19] LABS: BASO# 0.07 X1000 (0.0-0.2); BASO% 1.5 % (0.0-0.8); EOS# 0.38 X1000 (0.0-0.7); EOS% 8.1 % (0.0-10.0); HEMATOCRIT 23.8 % (42.0-52.0); HEMOGLOBIN 7.2 g/dL (14.0-18.0); LYMPH# 1.02 X1000 (1.2-3.4); LYMPH% 21.7 % (20.5-51.1); MCHC 30.3 g/dL (33-37); MONO# 0.65 X1000 (0.11-0.59); MONO% 13.8 % (1.7-9.3); MPV 10.3 FL (7.4-10.4); NEUT# 2.58 X1000 (1.4-6.5); NEUT% 54.9 % (42.2-75.2); PLT 421 X1000 (130-400); RBC 3.13 XMIL (4.7-6.1); RDW 15.7 % (11.5-14.5)
[2018-12-31] MEDS: NEXIUM IV SCH (06:25)
[2018-12-31] MEDS: HUMULIN R SUBQ SCH ×4 (06:35→21:05)
[2018-12-31 06:37] LABS: ACETONE SERUM NEGATIVE (NEGATIVE)
--- NOTE | 2018-12-31 06:39 | Diag Imaging Result Doc PS360 ---
CHEST-PORTABLE - 12/31/2018 INDICATION: follow up COMPARISON: 09/03/2018 FINDINGS: Lung volumes are lower. The lungs are clear. Heart size is normal. No pneumothorax or pleural effusion. IMPRESSION: Low lung volumes. Electronically signed by Dago Rod 12/31/2018 6:37 AM
[2018-12-31 06:41] LABS: AGAP 12; BUN 27 mg/dL (8-22); CALCIUM 8.3 mg/dL (8.8-10.2); CHLORIDE 110 mmol/L (98-107); COSMO 280; CREATININE 1.6 mg/dL (0.7-1.2); ESTIMATED GFR 45; GLUCOSE 48 mg/dL (70-104); PHOSPHORUS 3.4 mg/dL (2.7-4.5); POTASSIUM 4.6 mmol/L (3.5-5.1); SODIUM 139 mmol/L (136-145); TCO2 17 mmol/L (25-35)
[2018-12-31] MEDS: ROCEPHIN 1 GM in NS 50 ML IV SCH (08:01)
[2018-12-31] MEDS: LOPRESSOR PO SCH ×2 (08:03→21:03)
[2018-12-31] MEDS: HEPARIN SUBQ SCH ×3 (08:03→21:03)
[2018-12-31] MEDS: ASPIRIN EC PO SCH (08:03)
[2018-12-31 08:04] LABS: RETIC% 1.91 % (0.8-2.1); RETIC-HE 25.3 PG (28.2-36.6)
[2018-12-31 08:18] LABS: IRON SATURATION 3 %; TIBC 267 ug/dL
[2018-12-31 08:25] LABS: TOTAL IRON 8 ug/dL (53-167); UNBOUND IRON 259 ug/dL (112-346)
[2018-12-31 08:38] LABS: FERRITIN 24 ng/mL (30-400)
[2018-12-31] MEDS ORDERED: LEVEMIR SUBQ SCH ×2 (09:00)
[2018-12-31] MEDS: VENOFER 200 MG in NS 150 ML IV SCH (14:23)
[2018-12-31] MEDS: LACTULOSE PO SCH ×2 (14:23→21:04)
--- NOTE | 2018-12-31 16:12 | PROGRESS NOTE ---
DATE: 12/31/2018 SUBJECTIVE: The patient is resting comfortably. He states that he is hungry. OBJECTIVE: Vital Signs: Temperature 98.6 degrees, blood pressure 136/83, heart rate 78, respirations 20, O2 saturations 100% on room air. General this is an elderly male lying in bed in no acute distress. Heart S1, S2 normal. Regular rate and rhythm. Lungs clear to auscultation bilaterally. Abdomen positive bowel sounds. Soft, nontender, nondistended. Extremities: No edema no cyanosis. Neuro: The patient is alert and oriented x4. LABS: White blood cell count 4.7, hemoglobin 7.2, hematocrit 23, platelets 421,000 ABG pH of 7.32, pCO2 31, PO2 109. Sodium 139, potassium 4.6, chloride 110, CO2 17, BUN 27, creatinine 1.6, glucose 48. ASSESSMENT AND PLAN: 1. Diabetic ketoacidosis. Resolved. 2. Poorly controlled insulin-dependent diabetes mellitus. Will restart Humulin 70/30, 20 units twice a day and monitor the patient's response closely. 3. Bilateral hydroureteronephrosis with thickened bladder. The patient currently has a Garcia catheter in place. We will continue to monitor closely. 4. Acute kidney injury on chronic kidney disease. Improved. Continue with the Garcia catheter and gentle IV fluid hydration. 5. Urinary tract infection. The urine culture is growing gram-negative rods. Continue on antibiotic therapy pending the culture results. 6. Iron deficiency anemia. Will start Venofer infusions. 7. Folate deficiency. Will start the patient on folic acid replacement. 8. Possible gastroparesis. The patient has been encouraged to eat frequent small meals. 9. Deep vein thrombosis prophylaxis. Continue on heparin. 10. Disposition. The patient is stable for transfer to the medical floor. We will consult physical therapy to ambulate the patient. cc: Nina Dam[facility] MD [facility]
[2018-12-31] MEDS ORDERED: HUMULIN 70/30 SUBQ SCH (21:00)
[2018-12-31] MEDS: COLACE PO SCH (21:04)
[2018-12-31] MEDS: HUMULIN 70/30 SUBQ SCH (21:17)
[2019-01-01] MEDS: SODIUM CHLORIDE 0.9% INJ SCH (06:54)
[2019-01-01] MEDS: INVANZ 1 GM/NS 1 GM/50 ML IVPB IV SCH (06:54)
[2019-01-01] MEDS: NEXIUM IV SCH (06:54)
[2019-01-01] MEDS: HUMULIN R SUBQ SCH ×4 (06:55→23:08)
[2019-01-01 07:23] LABS: BASO# 0.04 X1000 (0.0-0.2); BASO% 1.1 % (0.0-0.8); EOS# 0.33 X1000 (0.0-0.7); EOS% 8.8 % (0.0-10.0); HEMATOCRIT 25.2 % (42.0-52.0); HEMOGLOBIN 7.5 g/dL (14.0-18.0); IMM GRAN# 0.02 X1000 (0.0-0.04); IMM GRAN% 0.5 % (0.0-0.5); LYMPH# 0.67 X1000 (1.2-3.4); MCH 22.9 PG (27-31); MCHC 29.8 g/dL (33-37); MCV 77.1 FL (81-99); MONO# 0.38 X1000 (0.11-0.59); MONO% 10.2 % (1.7-9.3); MPV 9.7 FL (7.4-10.4); NEUT# 2.29 X1000 (1.4-6.5); NEUT% 61.4 % (42.2-75.2); PLT 363 X1000 (130-400); RBC 3.27 XMIL (4.7-6.1); RDW 15.9 % (11.5-14.5); WBC 3.73 X1000 (4.8-10.8)
[2019-01-01 07:52] LABS: CALCIUM 8.3 mg/dL (8.8-10.2); CREATININE 1.5 mg/dL (0.7-1.2); PHOSPHORUS 3.4 mg/dL (2.7-4.5)
[2019-01-01] MEDS: VENOFER 200 MG in NS 150 ML IV SCH (10:07)
[2019-01-01] MEDS: LOPRESSOR PO SCH ×2 (10:08→20:44)
[2019-01-01] MEDS: LACTULOSE PO SCH ×3 (10:08→20:43)
[2019-01-01] MEDS: ASPIRIN EC PO SCH (10:08)
[2019-01-01] MEDS: HEPARIN SUBQ SCH ×3 (10:08→23:08)
[2019-01-01] MEDS: SENOKOT PO SCH ×2 (10:08→20:44)
[2019-01-01] MEDS: COLACE PO SCH ×2 (10:08→20:44)
[2019-01-01] MEDS: DULCOLAX PR SCH (10:09)
[2019-01-01] MEDS: HUMULIN 70/30 SUBQ SCH ×2 (10:10→20:45)
--- NOTE | 2019-01-01 12:59 | PROGRESS NOTE ---
DATE: 01/01/2019 SUBJECTIVE: The patient is resting comfortably in bed. He has no complaints at this time. OBJECTIVE: Vital Signs: Temperature 97.9 degrees, blood pressure 128/77, heart rate 70, respirations 18, O2 saturation is 100% on room air. General: This is an elderly male lying in bed in no acute distress. Heart: S1, S2 normal. Regular rate and rhythm. Lungs: Clear to auscultation bilaterally. No wheezing. No rales. No rhonchi. Abdomen: Positive bowel sounds. Soft, nontender, nondistended. Extremities: No edema, no cyanosis. Neurologic: The patient is alert and oriented x4. LABS: Hemoglobin 7.5, hematocrit 25, platelets 363,000, sodium 135, potassium 4, chloride 106, CO2 19, BUN 22, creatinine 1.5, glucose 107, calcium 8.3. ASSESSMENT AND PLAN: 1. Diabetic ketoacidosis. Resolved. 2. Poorly controlled insulin-dependent diabetes mellitus. Will increase the Humulin 70/30 dosage. 3. Bilateral hydroureteronephrosis with a thickened bladder. The patient currently has a Garcia in place. Continue to monitor closely. Urology is following. 4. Acute kidney injury on chronic kidney disease. Slowly improving. 5. Urinary tract infection secondary to ESBL E. coli. We will switch the patient to Invanz and consult with Infectious Disease. 6. Iron deficiency anemia. Continue with the Venofer infusions. The patient will likely need an EGD with colonoscopy as outpatient. 7. Folate deficiency. Continue with folic acid replacement. 8. Deep vein thrombosis prophylaxis. Continue on heparin. cc: Nina Damian MD [facility]
[2019-01-02] MEDS: NEXIUM IV SCH (06:25)
[2019-01-02] MEDS: SODIUM CHLORIDE 0.9% INJ SCH (06:25)
[2019-01-02] MEDS: INVANZ 1 GM/NS 1 GM/50 ML IVPB IV SCH (06:25)
[2019-01-02] MEDS: HUMULIN R SUBQ SCH ×4 (06:47→20:59)
[2019-01-02 07:18] LABS: HEMATOCRIT 28.8 % (42.0-52.0); HEMOGLOBIN 8.7 g/dL (14.0-18.0); MCHC 30.2 g/dL (33-37); MCV 79.6 FL (81-99); MPV 10.6 FL (7.4-10.4); RBC 3.62 XMIL (4.7-6.1); WBC 3.3 X1000 (4.8-10.8)
[2019-01-02 07:54] LABS: ALBUMIN 2.9 g/dL (3.5-5.0); CALCIUM 8.7 mg/dL (8.8-10.2); CREATININE 1.3 mg/dL (0.7-1.2); PHOSPHORUS 3.3 mg/dL (2.7-4.5); POTASSIUM 5.3 mmol/L (3.5-5.1)
[2019-01-02] MEDS: VENOFER 200 MG in NS 150 ML IV SCH (10:51)
[2019-01-02] MEDS: LOPRESSOR PO SCH ×2 (10:52→20:58)
[2019-01-02] MEDS: ASPIRIN EC PO SCH (10:52)
[2019-01-02] MEDS: LACTULOSE PO SCH ×3 (10:52→20:58)
[2019-01-02] MEDS: SENOKOT PO SCH ×2 (10:52→20:57)
[2019-01-02] MEDS: COLACE PO SCH ×2 (10:52→20:57)
[2019-01-02] MEDS: HEPARIN SUBQ SCH ×3 (10:53→21:04)
[2019-01-02] MEDS: DULCOLAX PR SCH (10:53)
[2019-01-02] MEDS: HUMULIN 70/30 SUBQ SCH ×2 (10:54→20:55)
[2019-01-02] MEDS: NORCO-5 PO PRN (12:01)
--- NOTE | 2019-01-02 14:56 | INFECTIOUS DISEASE CONSULT REP ---
DATE: 01/02/2019 CONCLUSION: Patient has an extended spectrum beta lactamase producing E coli urinary tract infection. I think this involves his prostate and possibly kidney. The patient has a 2-day history of dysuria, low back pain and hematuria. RECOMMENDATIONS: I agree with placing the patient on ertapenem. I would suggest treating him for a total of 14 days with it. DISCUSSION: The patient was admitted the hospital because he had a 2-day history of dysuria, low back pain and hematuria. His urine has grown out an extended spectrum beta lactamase producing E coli. The patient's CBC shows a white count of 3300, hemoglobin 8.7, and platelet count 285,000. The patient's creatinine is 1.3. GFR is 58. Urinalysis showed white cells and bacteria. Chest x- ray is clear. CT scan of the abdomen and pelvis shows worsening bladder wall thickening with mucosal irregularity and worsening bilateral hydroureteronephrosis. The patient also has severe stomach distention, possibly due to gastroparesis or bowel obstruction. PAST MEDICAL HISTORY/REVIEW OF SYSTEMS: Eyes and ears: He says he wears glasses but otherwise his vision is okay. His hearing is okay. Neck: No stiffness. Respiratory: No cough or dyspnea. Cardiac: No chest pain or palpitations. GI: No nausea, vomiting, or diarrhea. : See present illness. PREVIOUS HOSPITALIZATIONS AND OPERATIONS: Patient has had cystoscopy with bilateral retrograde pyelogram. He has also had transurethral resection of the prostate. MEDICAL DISEASES: Positive for benign prostatic hypertrophy, chronic kidney disease, gastroesophageal reflux disease, diabetes mellitus, hypertension, renal calculi, anxiety and depression and the patient has been treated for suicidal and homicidal ideations in September 2018. The patient has had prostate surgery as well as cystoscopy with bilateral retrograde pyelogram. Positive for neurogenic bladder requiring self-catheterization, obstructive uropathy with urinary retention, iron deficiency anemia, uncontrolled diabetes, chronic kidney disease, gastroesophageal reflux disease and chronic kidney disease. INFECTIOUS DISEASE HISTORY: Positive for pneumonia and UTI. FAMILY HISTORY: Positive for diabetes mellitus, hypertension and stroke. SOCIAL HISTORY: The patient is single. He lives at the [facility], [place] [address]. He does not smoke cigarettes, drink alcoholic beverages or abuse drugs. He works making [employer]. He does not have any pets . ALLERGIES: There are no known drug allergies. HOME MEDICATIONS: Consist of aspirin, insulin, and metoprolol. PHYSICAL EXAMINATION: Vital Signs: Temperature is 98.1 degrees, pulse 81, respirations 20, blood pressure 106/65. Patient weighs 146 pounds. General: This is a ill-appearing middle-aged male. He is in no acute distress. Head/eyes/ears/nose/throat: Patient is wearing glasses. He can see near objects. He can hear my spoken words. He does not have any white coating of his tongue or ulcers in his mouth. Neck: No meningismus. Lungs: Clear to auscultation. Cardiovascular: Heart rate is regular. Peripheral pulses are palpable. Abdomen: Soft and nontender. No CVA tenderness. Extremities: There is no leg edema. There is no swollen joints. Neurologic: Patient is awake. He can move his extremities. There is no tremor. His sensation is intact to touch. His memory as regarding his medical history was slightly diminished. Integument: No rash noted. Thank you for the consult. cc: Cirilo Mercado MD
[2019-01-02] MEDS ORDERED: ALBUTEROL 0.5% INH CONC FOR HYPERKALEMIA INH ONE (16:09)
--- NOTE | 2019-01-02 16:39 | PROGRESS NOTE ---
DATE: 01/02/2019 SUBJECTIVE: The patient is resting comfortably. He has no complaints at this time. OBJECTIVE: Vital Signs: Temperature 97.9 degrees, blood pressure 106/68, heart rate 63, respirations 19, O2 saturation is 100% on room air. General: This is a chronically ill-appearing elderly male, lying in bed in no acute distress. Heart: S1, S2 normal. Regular rate and rhythm. Lungs: Equal air entry bilaterally. No wheezing. No rales. No rhonchi. Abdomen: Positive bowel sounds. Soft, nontender, nondistended. Extremities: No edema, no cyanosis. Neurologic: The patient is alert and oriented x3. LABORATORY DATA: White blood cell count 3.3, hemoglobin 8.7, hematocrit 28, platelets 285,000 sodium 138, potassium 5.3, chloride 106, CO2 19, BUN 20, creatinine 1.3, glucose 114. ASSESSMENT AND PLAN: 1. Urinary tract infection secondary to extended-spectrum beta-lactamase Escherichia coli. Continue on Invanz. Today is day [address] Mercado is following. 2. Poorly controlled insulin-dependent diabetes mellitus. Continue with Humulin 70/30 twice a day. 3. Bilateral hydroureteronephrosis with a thickened bladder. Management as per the urologist. 4. Acute kidney injury on chronic kidney disease. Improved. 5. Mild hyperkalemia. We will treat with albuterol. 6. Iron deficiency anemia. Improved. Continue on the Venofer infusion. The patient will likely need an EGD with colonoscopy as outpatient. 7. Folate deficiency. Continue with folic acid replacement. 8. Diabetic ketoacidosis. Resolved. 9. Leukopenia. Aware. 10. Deep vein thrombosis prophylaxis. Continue on heparin. cc: Nina Damian MD
[2019-01-03] MEDS: SODIUM CHLORIDE 0.9% INJ SCH (06:12)
[2019-01-03] MEDS: INVANZ 1 GM/NS 1 GM/50 ML IVPB IV SCH (06:12)
[2019-01-03] MEDS: NEXIUM IV SCH (06:13)
[2019-01-03] MEDS: HUMULIN R SUBQ SCH ×4 (06:13→20:46)
[2019-01-03 07:19] LABS: HEMATOCRIT 27.2 % (42.0-52.0); MCH 23.2 PG (27-31); MCHC 29.4 g/dL (33-37); MCV 78.8 FL (81-99); MPV 8.7 FL (7.4-10.4); RBC 3.45 XMIL (4.7-6.1); RDW 17.1 % (11.5-14.5); WBC 3.05 X1000 (4.8-10.8)
[2019-01-03 07:40] LABS: CALCIUM 8.6 mg/dL (8.8-10.2); CREATININE 1.7 mg/dL (0.7-1.2); POTASSIUM 5.3 mmol/L (3.5-5.1)
[2019-01-03] MEDS: FOLIC ACID PO SCH (11:03)
[2019-01-03] MEDS: VENOFER 200 MG in NS 150 ML IV SCH (11:03)
[2019-01-03] MEDS: COLACE PO SCH ×2 (11:03→20:41)
[2019-01-03] MEDS: LOPRESSOR PO SCH ×2 (11:03→20:42)
[2019-01-03] MEDS: ASPIRIN EC PO SCH (11:03)
[2019-01-03] MEDS: HUMULIN 70/30 SUBQ SCH ×2 (11:04→20:49)
[2019-01-03] MEDS: SENOKOT PO SCH ×2 (11:04→20:41)
[2019-01-03] MEDS: LACTULOSE PO SCH ×2 (11:04→20:42)
[2019-01-03] MEDS: HEPARIN SUBQ SCH ×2 (11:04→20:43)
[2019-01-03] MEDS: DULCOLAX PR SCH (11:04)
[2019-01-03] MEDS: 1/2 NS 1,000 ML IV SCH (13:50)
[2019-01-03 16:12] LABS: ALBUMIN 3.3 g/dL (3.5-5.0); CALCIUM 8.4 mg/dL (8.8-10.2); CREATININE 1.5 mg/dL (0.7-1.2); PHOSPHORUS 3.4 mg/dL (2.7-4.5); POTASSIUM 4.4 mmol/L (3.5-5.1)
--- NOTE | 2019-01-03 18:12 | PROGRESS NOTE ---
DATE: 01/03/2019 SUBJECTIVE: The patient is resting comfortably in bed. He has no complaints at this time. OBJECTIVE: Vital Signs: Temperature 97.7 degrees, blood pressure 106/63, heart rate 77, respirations 19, O2 saturation is 100% on room air. General: This is an elderly male lying in bed, in no acute distress. Heart: S1, S2 normal. Regular rate and rhythm. Lungs: Equal air entry bilaterally. No wheezing. No rales. No rhonchi. Abdomen: Positive bowel sounds. Soft, nontender, nondistended. Extremities: No edema. No cyanosis. Neurologic: The patient is alert and oriented x3. LABS: White blood cell count 3, hemoglobin 8, hematocrit 27, platelets 356,000. Sodium 142, potassium 5.3, chloride 107, CO2 24, BUN 27, creatinine 1.7, glucose 101, calcium 8.6. ASSESSMENT AND PLAN: 1. Urinary tract infection secondary to extended spectrum beta lactamase Escherichia coli. Continue on Invanz. Today is day 3 of therapy. The patient does not have a home. He lives at the [facility] so he will have to remain hospitalized until he completes the full course of antibiotics IV. 2. Poorly controlled insulin-dependent diabetes mellitus. Continue on Humulin 70/30 twice a day plus sliding scale insulin. 3. Bilateral hydroureteronephrosis with a thickened bladder. The patient currently has a Garcia catheter in place. Management as per the Urologist. 4. Acute kidney injury on chronic kidney disease. The BUN and creatinine have increased slightly today. We will restart IV fluids and check urine studies. We will also order a renal ultrasound. 5. Hyperkalemia. Will repeat the potassium level this afternoon. 6. Iron deficiency anemia. The patient received 3 days of iron infusions. We will continue on Icar C. The patient will likely need an EGD and colonoscopy done as outpatient. 7. Constipation. Continue with scheduled laxative therapy. 8. Deep vein thrombosis prophylaxis. Continue on heparin. cc: Nina Damian MD
--- NOTE | 2019-01-03 22:05 | INFECTIOUS DISEASE PROGRESS NO ---
DATE: 01/03/2019 PRESENT ILLNESS: Mr. Santana is being treated for an extended-spectrum beta- lactamase producing Escherichia coli urinary tract infection. MEDICATIONS: He is on day #3 of ertapenem 1 g IV daily, which he will need for a total 14 days. PHYSICAL EXAMINATION: Vital Signs: Temperature is 97.7 degrees, pulse rate 77, respiratory rate 19, blood pressure 106/63, O2 saturation is 100% on room air. General: This is a chronically ill- appearing, middle-aged gentleman. He is lying in the bed, currently in no acute distress. HEENT: Atraumatic, normocephalic. Oral mucous membranes are pink and moist. Conjunctivae are pale. Neck: Supple. Trachea is midline. Cardiovascular: Heart rate and rhythm are regular. Normal sinus rhythm on the monitor. Respiratory: Lung sounds are clear to auscultation bilaterally. No work of breathing is noted. Abdomen: Soft, flat, and nontender. Bowel sounds are active. Neurologic: He is awake, alert, and oriented. Able to move all extremities in the bed without any focal weakness. Integumentary: Skin is warm and dry without any rashes noted. LABORATORY AND X-RAY: Today his white count is 3.05, hemoglobin 8, platelet count 356,000. Creatinine is 1.7. GFR is 42. His urine has grown an ESBL producing E coli in the culture. No imaging reports today. ASSESSMENT AND PLAN: Mr. Santana is being treated for an extended spectrum beta-lactamase producing Escherichia coli urinary tract infection, which has been symptomatic. Today he states he is feeling better with less pain on urination and decreased kidney pain with negative CVA tenderness. He will need a total of 14 days of ertapenem. Today is day 3. Unfortunately, the patient lives at the [facility] so we will not be able to send him out with an IV. After talking with Dr. Mercado and Dr. Damian, we will probably have to keep him here in the hospital for the duration of his treatment. We have also discussed this with the social sciences lecturer in the event that some plan can work out for him to get his medications after discharge. He does have some current comorbidities, which include anemia and renal insufficiency. At this point, we will not need to decrease the dosage of his ertapenem, but we will continue to monitor his renal function. These plans have been discussed with and recommended by Dr. Mercado. COMORBIDITIES: For Mr. Santana include neurogenic bladder with self- catheterization, benign prostatic hypertrophy, iron deficiency anemia, uncontrolled diabetes mellitus, gastroesophageal reflux disease, chronic kidney disease and recent treatment for suicidal and homicidal ideation. Dictated by MONIE Farias for Cirilo Mercado MD cc: Cirilo Mercado MD [facility]
[2019-01-03 22:16] LABS: URINE SOURCE CATH
[2019-01-03 22:42] LABS: UR CREAT RANDOM 30.7 mg/dL (14-26); UR POTASSIUM 15.3 mmoll; UR PROT RANDOM 51.4 mg/dL
[2019-01-03 22:43] LABS: BILIRUBIN URINE NEGATIVE (NEGATIVE); BLOOD URINE SMALL (NEGATIVE); COLOR ORANGE; GLUCOSE URINE TRACE mg/dL (NEGATIVE); KETONE URINE NEGATIVE (NEGATIVE); LEUKOCYTES URINE LARGE (NEGATIVE); NITRITE URINE NEGATIVE (NEGATIVE); PH URINE 6.5; PROTEIN URINE 30 mg/dL (NEGATIVE); SP GRAVITY URINE 1.009; TURBIDITY URINE TURBID (CLEAR); UROBILINOGEN URINE NORMAL (NORMAL)
[2019-01-03 22:49] LABS: UR EPITHELIAL CELLS <10 /HPF (<10); URINE BACTERIA NEGATIVE /HPF; URINE RBC 20-40 /HPF (<10); URINE WBC TNTC /HPF (<10)
[2019-01-03 23:00] LABS: URINE CASTS NONE SEEN; URINE CRYSTALS NONE SEEN; URINE SMALL ROUND CELLS NONE SEEN; URINE YEAST PRESENT
[2019-01-04] MEDS: HEPARIN SUBQ SCH ×3 (01:31→22:09)
[2019-01-04] MEDS: 1/2 NS 1,000 ML IV SCH ×4 (01:32→14:47)
[2019-01-04] MEDS: INVANZ 1 GM/NS 1 GM/50 ML IVPB IV SCH (06:01)
[2019-01-04] MEDS: NEXIUM PO SCH (06:03)
[2019-01-04] MEDS: HUMULIN R SUBQ SCH ×4 (06:51→22:10)
[2019-01-04 07:23] LABS: HEMATOCRIT 27.8 % (42.0-52.0); HEMOGLOBIN 8.4 g/dL (14.0-18.0); MCH 24.2 PG (27-31); MCHC 30.2 g/dL (33-37); MCV 80.1 FL (81-99); MPV 9.2 FL (7.4-10.4); RBC 3.47 XMIL (4.7-6.1); RDW 17.6 % (11.5-14.5); WBC 3.83 X1000 (4.8-10.8)
[2019-01-04 07:39] LABS: CALCIUM 8.7 mg/dL (8.8-10.2); CREATININE 1.5 mg/dL (0.7-1.2); POTASSIUM 4.2 mmol/L (3.5-5.1)
[2019-01-04] MEDS: COLACE PO SCH ×2 (09:02→22:09)
[2019-01-04] MEDS: LACTULOSE PO SCH ×2 (09:02→22:11)
[2019-01-04] MEDS: SENOKOT PO SCH ×2 (09:02→22:11)
[2019-01-04] MEDS: HUMULIN 70/30 SUBQ SCH ×2 (09:02→22:10)
[2019-01-04] MEDS: ASPIRIN EC PO SCH (09:02)
[2019-01-04] MEDS: FOLIC ACID PO SCH (09:02)
[2019-01-04] MEDS: LOPRESSOR PO SCH ×2 (09:02→22:09)
[2019-01-04] MEDS: DULCOLAX PR SCH (09:03)
--- NOTE | 2019-01-04 13:51 | PROGRESS NOTE ---
DATE: 01/04/2019 Mr. Santana is a 53-year-old. Presented with painful urination, came in. Past medical history of neurogenic bladder, frequent self-catheterizations along with benign prostatic hypertrophy, obstructive uropathy and urinary retention, iron deficiency anemia, uncontrolled diabetes mellitus type 2, chronic kidney disease stage 3, gastroesophageal reflux disease, anxiety, depression. Recently treated for fungal infection in the groin. Reported to the emergency room. He has dysuria and flank pain that began the night before. Upon examination, patient was quite sleepy. Had to be awakened several times. Just answered simple questions . Refused to be put on insulin drip. Found to be in DKA as well as having urinary tract infection. He was started on the DKA protocol, initiated on IV antibiotics. Blood sugar was high at 4 o'clock a.m. and so began on a protocol. PAST MEDICAL HISTORY: 1. History of neurogenic bladder with frequent self-catheterizations. 2. Benign prostatic hypertrophy. 3. Obstructive uropathy, urinary retention. 4. Iron deficiency anemia. 5. Uncontrolled diabetes. 6. Chronic kidney disease. 7. Gastroesophageal reflux disease. 8. Anxiety with depression. 9. Chronic kidney disease stage 3. 10. Treated for suicidal and homicidal ideations back in September of 2018. PAST SURGICAL HISTORY: 1. Prostate surgery. 2. Cystoscopy with bilateral retrograde pyelogram. Note that he lives at the [facility]. Right now, he is sitting up in a chair, feeling better but he is going to need 2 weeks of antibiotics. Going to have to figure out the logistics of that. OBJECTIVE: Temperature 97.7 degrees, pulse 73, respirations 19, blood pressure 111/77. Pupils are equal and round. Lungs are clear in all lung lambert. Cardiovascular Examination: Regular rhythm and rate without murmur or S3. Abdomen: Soft. Skin: Warm and dry. Blood sugars 129, 121, 103, 154. ASSESSMENT/PLAN: 1. He has had extended spectrum beta lactamase producing Escherichia coli urinary tract infection. He is on day 4 of intravenous ertapenem. He will need a total of 14 days. We are going to have to figure out how to do that since he is staying at the [facility] at night and he has no family that is willing or able to take him in. We will discuss with social service and see we can do. He does feel better. Garcia catheter in place. 2. Poorly controlled insulin-dependent diabetes mellitus. He is on Humulin 70/30 twice a day and we will adjust that. He is on sliding scale as well. 3. Bilateral hydroureteronephrosis with thickened bladder, neurogenic bladder. Continue Garcia catheter. Follow up with urology. 4. Acute kidney injury on top of chronic kidney disease. I think his BUN and creatinine hopefully are headed towards baseline. He was getting intravenous fluids. 5. Hyperkalemia. 6. Iron deficiency anemia. Three days of iron infusions with Icar. Likely will need an esophagogastroduodenoscopy and colonoscopy as an outpatient. 7. Constipation. He is on a bowel regimen. 8. Continue his heparin for deep venous thrombosis prophylaxis. REVIEW OF HIS ORDERS: I do not see any change. He is on heparin 5000 units subcutaneous q.12, normal saline at 75 mL an hour, aspirin 81 mg a day, Colace 100 mg b.i.d., Nexium 40 mg daily, folic acid 1 mg a day, ertapenem 1 g IV q.24 hours, lactulose 30 mL b.i.d., metoprolol 25 mg b.i.d., and Senokot 1 p.o. b.i.d. cc: Christ Lay MD MTDD
[2019-01-05] MEDS: 1/2 NS 1,000 ML IV SCH ×2 (00:36→15:11)
[2019-01-05] MEDS: HUMULIN R SUBQ SCH ×4 (05:40→21:00)
[2019-01-05] MEDS: NEXIUM PO SCH (06:35)
[2019-01-05] MEDS: INVANZ 1 GM/NS 1 GM/50 ML IVPB IV SCH (06:35)
[2019-01-05] MEDS: ASPIRIN EC PO SCH (08:51)
[2019-01-05] MEDS: FOLIC ACID PO SCH (08:51)
[2019-01-05] MEDS: LOPRESSOR PO SCH ×2 (08:51→22:26)
[2019-01-05] MEDS: HUMULIN 70/30 SUBQ SCH ×2 (08:51→22:27)
[2019-01-05] MEDS: DULCOLAX PR SCH (11:02)
[2019-01-05] MEDS: COLACE PO SCH ×2 (11:02→20:53)
[2019-01-05] MEDS: HEPARIN SUBQ SCH ×2 (11:02→22:24)
[2019-01-05] MEDS: SENOKOT PO SCH ×2 (11:02→20:53)
[2019-01-05] MEDS: LACTULOSE PO SCH (11:02)
--- NOTE | 2019-01-05 13:51 | PROGRESS NOTE ---
DATE: 01/05/2019 SUBJECTIVE: Mr. Santana is sleeping. He was resting comfortably, easy to arouse. OBJECTIVE: Temperature 97.5 degrees, pulse 70, respirations 16, blood pressure 112/69. Pupils are equal and round. Lungs are clear in all lung lambert. Cardiovascular Examination: Regular rhythm and rate without murmur or S3. Urine output was 7300 mL. Blood sugars 86, 109, 154. ASSESSMENT AND PLAN: 1. He has an extended spectrum beta lactamase producing Escherichia coli urinary tract infection. He should be on day 5 intravenous ertapenem. No need to complete 14 days. 2. Uncontrolled insulin-dependent diabetes mellitus. Sugars are doing well. He did present with a little bit of diabetic ketoacidosis. This has resolved. 3. Bilateral hydroureteronephrosis, thickened bladder, neurogenic bladder. Continue Garcia catheter. 4. Acute kidney injury on top of chronic kidney injury. BUN and creatinine were headed down and appeared to be stable. BUN is 26, creatinine 1.5. 5. Hyperkalemia, resolved. 6. Iron deficiency anemia. Continue iron supplement. Likely will need an esophagogastroduodenoscopy and colonoscopy as an outpatient. 7. Constipation. Continue bowel regimen. cc: Christ Lay MD
--- NOTE | 2019-01-05 14:22 | INFECTIOUS DISEASE PROGRESS NO ---
DATE: 01/05/2019 PRESENT ILLNESS: Mr. Santana has an extended spectrum beta lactamase producing Escherichia coli urinary tract infection. MEDICATIONS: Today is day 5 of ertapenem 1 g IV daily which he will need for a total of 14 days. PHYSICAL EXAMINATION: Vital Signs: Temperature is 97.5 degrees, pulse rate 70, respiratory rate 16, blood pressure 112/69, O2 saturation is 100% on room air. General: This is a chronically ill- appearing, middle-aged gentleman. He is lying in bed, currently in no acute distress. HEENT: Atraumatic, normocephalic. Oral mucous membranes are pink and moist. Conjunctivae are pale. Neck: Supple. Trachea is midline. Respiratory: Lung sounds are clear to auscultation bilaterally. Cardiovascular: Heart rate is regular. Abdomen: Soft, flat, and nontender. Bowel sounds are active. Neurologic: He is awake, alert, oriented, and able to move around in the bed without any weakness. Integumentary: Skin is warm, dry, and intact without any rash noted. LABORATORY AND X-RAY: None available today. However, yesterday his white count was 3.83, hemoglobin 8.4, platelet count 367,000, creatinine 1.5, GFR 49. He has had a repeat urine culture which showed no growth. No imaging reports today. ASSESSMENT AND PLAN: Mr. Santana is being treated for an ESBL producing E. coli urinary tract infection and will require 14 days of treatment with ertapenem. Today is day 5. Unfortunately because he works during the day and stays at the [facility] at night, he will have to stay in the hospital for the duration of his treatment. After day 14 of treatment, we will take out his IV and he should be ready for discharge. These plans have been discussed with and recommended by Dr. Mercado. COMORBIDITIES: For Mr. Santana include neurogenic bladder with self catheterization, benign prostatic hypertrophy, iron-deficiency anemia, uncontrolled diabetes mellitus, gastroesophageal reflux disease, chronic kidney disease and recent treatment for suicidal and homicidal ideations. Dictated by MONIE Farias for Cirilo Mercado MD cc: [facility]ado MD [facility]
--- NOTE | 2019-01-05 14:40 | Diag Imaging Result Doc PS360 ---
EXAM: US RENAL 2 (RETROPER) COMPLETE INDICATION: amanda/arf TECHNIQUE: COMPARISON: 08/23/2014 FINDINGS: The renal cortices are mildly echogenic, which is a nonspecific indicator of medical renal disease. There is a 1.9 cm simple cyst at the upper pole of the right kidney. No solid renal masses are appreciated. There is pelvocaliectasis on the left of unknown acuity. Note that this was also seen on a recent CT. The right kidney measures 11.4 cm and the left kidney measures 10 cm in the greatest longitudinal axes. Right renal cortex measures 0.9 cm and the left renal cortex measures 0.7 cm in thickness. There is a Garcia catheter in the urinary bladder and the bladder is completely nondistended. There is suggestion of the urinary bladder wall thickening, but it is difficult to further evaluate the urinary bladder given the nondistention. IMPRESSION: 1.Dilated left renal collecting system of unknown acuity. 2.Nondistended urinary bladder with a Garcia catheter in place but there is suggestion of urinary bladder wall thickening, which would indicate cystitis. Electronically signed by Max Vela 01/05/2019 2:37 PM
[2019-01-06] MEDS: LACTULOSE PO SCH ×2 (03:34→10:11)
[2019-01-06] MEDS: HUMULIN R SUBQ SCH ×4 (06:30→21:50)
[2019-01-06] MEDS: INVANZ 1 GM/NS 1 GM/50 ML IVPB IV SCH (07:08)
[2019-01-06] MEDS: 1/2 NS 1,000 ML IV SCH (08:07)
[2019-01-06] MEDS: DULCOLAX PR SCH (10:09)
[2019-01-06] MEDS: COLACE PO SCH ×2 (10:10→23:00)
[2019-01-06] MEDS: HEPARIN SUBQ SCH (10:10)
[2019-01-06] MEDS: SENOKOT PO SCH ×2 (10:11→23:10)
[2019-01-06] MEDS: LOPRESSOR PO SCH ×2 (10:12→23:10)
[2019-01-06] MEDS: HUMULIN 70/30 SUBQ SCH ×2 (10:13→23:14)
[2019-01-06] MEDS: FOLIC ACID PO SCH (10:13)
[2019-01-06] MEDS: ASPIRIN EC PO SCH (10:13)
[2019-01-06] MEDS: NEXIUM PO SCH (10:15)
[2019-01-06] MEDS ORDERED: INSULIN PEN NEEDLES ONE (16:33)
[2019-01-07] MEDS: LACTULOSE PO SCH ×3 (03:11→20:10)
[2019-01-07] MEDS: HEPARIN SUBQ SCH ×4 (03:24→20:10)
[2019-01-07] MEDS: NEXIUM PO SCH (06:42)
[2019-01-07] MEDS: INVANZ 1 GM/NS 1 GM/50 ML IVPB IV SCH (06:43)
[2019-01-07] MEDS: HUMULIN R SUBQ SCH ×4 (06:48→20:11)
[2019-01-07] MEDS: COLACE PO SCH ×2 (10:03→20:09)
[2019-01-07] MEDS: SENOKOT PO SCH ×2 (10:03→20:09)
[2019-01-07] MEDS: ASPIRIN EC PO SCH (10:03)
[2019-01-07] MEDS: LOPRESSOR PO SCH ×2 (10:03→20:11)
[2019-01-07] MEDS: FOLIC ACID PO SCH (10:04)
[2019-01-07] MEDS: DULCOLAX PR SCH (10:08)
[2019-01-07] MEDS: HUMULIN 70/30 SUBQ SCH ×2 (10:22→20:12)
--- NOTE | 2019-01-07 14:06 | PROGRESS NOTE ---
DATE: 01/07/2019 Mr. Santana is doing well. He was making self a sandwich when I came out this morning. Remains afebrile, temperature 97.4 degrees, pulse 60, respirations 18, blood pressure 104/66. Pupils are equal, round. Lungs are clear in all lung lambert. Cardiovascular exam, regular rhythm, rate without murmur or S3. Abdomen is soft. Skin is warm and dry. Urine output was 5800 mL. Blood sugar 265, 116, 391. ASSESSMENT AND PLAN: 1. Treating for extended spectrum beta lactamase producing Escherichia coli urinary tract infection and this is day 6 intravenous ertapenem. Needs to complete 14 days. 2. Uncontrolled insulin-dependent diabetes mellitus. Getting pattern sugars on sliding scale. 3. Bilateral hydroureter nephrosis, thickened bladder, neurogenic bladder. Continue Garcia catheter. 4. Acute kidney injury on top of chronic kidney injury. BUN and creatinine improving. 5. Hyperkalemia, resolved. 6. Iron deficiency anemia so continue iron supplement. 7. Constipation. Continues but continue his bowel regimen. cc: Christ Lay MD
[2019-01-07] MEDS: 1/2 NS 1,000 ML IV SCH (16:20)
--- NOTE | 2019-01-07 19:27 | INFECTIOUS DISEASE PROGRESS NO ---
DATE: 01/07/2019 PRESENT ILLNESS: The patient has an extended spectrum beta lactamase producing E coli urinary tract infection. MEDICATIONS: I checked with the pharmacy, and this is day 7 of ertapenem. PHYSICAL EXAMINATION: Vital Signs: Temperature is 97.4 degrees, pulse 60, respirations 18, blood pressure 104/66. General: This is a fairly healthy-appearing, middle-aged male. He is in no acute distress. Head, eyes, ears, nose, and throat: He can hear my spoken words and see near objects. He does not have any drainage from his nose or ears. Neck: No pain with moving his neck. Lungs: Clear to auscultation. Cardiovascular: Regular heart rate. Abdomen: Soft and nontender. Extremities: The patient's IV sites are not red or swollen. Neurologic: Patient is alert. He can move his extremities. He is able to ambulate. There is no tremor. LAB AND X-RAY: The patient does not have any lab or radiographic studies scheduled for today. ASSESSMENT AND PLAN: The patient has an extended spectrum beta lactamase producing E coli urinary tract infection. He has had 7 days of treatment and I plan to treat him for 7 more days. Also, I am going to order some lab work. COMORBIDITIES: The patient has a neurogenic bladder and has to self-catheterize in order to keep his bladder not distended. The patient also has benign prostatic hypertrophy, diabetes mellitus, gastroesophageal reflux disease, and chronic kidney disease. cc: Cirilo Mercado MD
[2019-01-08] MEDS: 1/2 NS 1,000 ML IV SCH ×2 (05:31→19:29)
[2019-01-08] MEDS: INVANZ 1 GM/NS 1 GM/50 ML IVPB IV SCH (05:35)
[2019-01-08] MEDS: HUMULIN R SUBQ SCH ×4 (06:20→21:08)
[2019-01-08] MEDS: NEXIUM PO SCH (06:38)
[2019-01-08] MEDS: LOPRESSOR PO SCH ×2 (10:02→21:09)
[2019-01-08] MEDS: SENOKOT PO SCH ×2 (10:02→21:14)
[2019-01-08] MEDS: FOLIC ACID PO SCH (10:02)
[2019-01-08] MEDS: ASPIRIN EC PO SCH (10:03)
[2019-01-08] MEDS: COLACE PO SCH ×2 (10:03→21:10)
[2019-01-08] MEDS: DULCOLAX PR SCH (10:03)
[2019-01-08] MEDS: LACTULOSE PO SCH ×2 (10:03→21:10)
[2019-01-08] MEDS: HEPARIN SUBQ SCH ×2 (10:04→21:10)
[2019-01-08] MEDS: HUMULIN 70/30 SUBQ SCH ×2 (10:09→21:09)
--- NOTE | 2019-01-08 13:00 | PROGRESS NOTE ---
DATE: 01/08/2019 SUBJECTIVE: Mr. Santana reports that he is doing well. His urine appears to have cleared. He is comfortable. OBJECTIVE: Vital Signs: Temperature 98.1 degrees, pulse 69, respirations 18, blood pressure 106/67. HEENT: Pupils are equal and round. Lungs are clear in all lung lambert. Cardiovascular: Regular rate without murmur or S3. Abdomen: Soft. Skin: Warm and dry. URINE OUTPUT: 10 L. ASSESSMENT AND PLAN: 1. Treating Escherichia coli urinary tract infection. Extended spectrum beta lactamase producing Escherichia coli. Day 7 of ertapenem. He is going to complete 14 days. 2. Diabetes mellitus type 2. Sugars appear well controlled. 3. Bilateral hydroureter nephrosis thickened bladder neurogenic bladder. Garcia catheter still in place. 4. Acute kidney injury on top of chronic kidney injury. 5. Hyperkalemia. 6. Iron deficiency anemia. Continue iron supplement. 7. Constipation which has resolved. Looking at orders, I do not see any change. cc: Christ Lay MD
[2019-01-08] MEDS: NORCO-5 PO PRN (18:04)
[2019-01-09] MEDS: D50W SYRINGE IV PRN (00:35)
[2019-01-09] MEDS: HUMULIN R SUBQ SCH ×2 (06:06→23:09)
[2019-01-09] MEDS: INVANZ 1 GM/NS 1 GM/50 ML IVPB IV SCH (06:13)
[2019-01-09] MEDS: NEXIUM PO SCH (06:14)
[2019-01-09] MEDS ORDERED: INSULIN PEN NEEDLES ONE (08:41)
[2019-01-09] MEDS: 1/2 NS 1,000 ML IV SCH ×2 (08:51→23:02)
[2019-01-09] MEDS: COLACE PO SCH ×2 (08:52→23:05)
[2019-01-09] MEDS: DULCOLAX PR SCH (08:52)
[2019-01-09] MEDS: SENOKOT PO SCH ×2 (08:53→23:06)
[2019-01-09] MEDS: LACTULOSE PO SCH ×2 (08:53→23:05)
[2019-01-09] MEDS: HEPARIN SUBQ SCH ×2 (08:53→23:04)
[2019-01-09] MEDS: ASPIRIN EC PO SCH (08:54)
[2019-01-09] MEDS: LOPRESSOR PO SCH ×2 (08:54→23:06)
[2019-01-09] MEDS: HUMULIN 70/30 SUBQ SCH ×2 (08:54→23:07)
[2019-01-09] MEDS: FOLIC ACID PO SCH (08:55)
--- NOTE | 2019-01-09 13:17 | PROGRESS NOTE ---
DATE: 01/09/2019 SUBJECTIVE: Mr. Santana is doing well. No complaints. His urine looks clear. Remains afebrile. He is eating well. OBJECTIVE: Vital Signs: Temperature 97.7 degrees, pulse 62, respirations 18, blood pressure 102/63. HEENT: Pupils are equal and round. Lungs: Clear in all lung lambert. Cardiovascular: Regular rhythm and rate without murmur or S3. Abdomen: Soft. Skin: Warm and dry. URINE OUTPUT: 7400 mL. ASSESSMENT AND PLAN: 1. Escherichia coli urinary tract infection. It is extended-spectrum beta-lactamase producing. He is on day 8 of ertapenem. He is to complete 14 days. 2. Diabetes mellitus, type 2. Sugar is well controlled. 3. Bilateral hydroureteronephrosis, thickened gallbladder, neurogenic bladder. This was from benign prostatic hypertrophy and prolonged extended bladder. 4. Acute kidney injury on top of chronic kidney injury, which is improved. 5. Hyperkalemia. 6. Iron deficiency anemia. 7. Constipation, which is resolved. REVIEW OF HIS ORDERS: On heparin 5000 units subcutaneous q.12 h. Normal saline 75 mL an hour. Aspirin 81 mg a day. Colace 100 mg b.i.d. Folic acid 1 mg daily. Ertapenem 1 g every 24 hours. Getting insulin 70/30 at 35 units q.a.m. and 30 units q.p.m. Lopressor 25 mg b.i.d. Senokot 1 twice a day. cc: Christ Lay MD
[2019-01-10] MEDS: D50W SYRINGE IV PRN (02:31)
[2019-01-10] MEDS: HUMULIN R SUBQ SCH ×4 (06:05→17:34)
[2019-01-10] MEDS: INVANZ 1 GM/NS 1 GM/50 ML IVPB IV SCH (06:22)
[2019-01-10] MEDS: NEXIUM PO SCH (06:22)
[2019-01-10] MEDS: NORCO-5 PO PRN (07:44)
[2019-01-10] MEDS: LOPRESSOR PO SCH ×3 (07:45→22:03)
[2019-01-10] MEDS: ASPIRIN EC PO SCH ×2 (07:45→08:31)
[2019-01-10] MEDS: FOLIC ACID PO SCH ×2 (07:45→08:32)
[2019-01-10] MEDS: HUMULIN 70/30 SUBQ SCH ×3 (07:46→22:04)
[2019-01-10] MEDS: DULCOLAX PR SCH (08:32)
[2019-01-10] MEDS: COLACE PO SCH (08:32)
[2019-01-10] MEDS: HEPARIN SUBQ SCH (08:33)
[2019-01-10] MEDS: LACTULOSE PO SCH (08:35)
[2019-01-10] MEDS: SENOKOT PO SCH (08:35)
--- NOTE | 2019-01-10 12:43 | PROGRESS NOTE ---
DATE: 01/10/2019 SUBJECTIVE: Mr. Santana was sleeping, easy to arouse. No complaints. His Garcia catheter was flushed out. Good urine output. Remains afebrile. OBJECTIVE: Temperature 97.2 degrees, pulse 68, respirations 16, blood pressure 117/75. Pupils are equal and round. Lungs are clear in all lung lambert. Cardiovascular Examination: Regular rhythm and rate without murmur or S3. Abdomen is soft. Skin is warm and dry. ASSESSMENT AND PLAN: 1. Escherichia coli urinary tract infection, extended spectrum beta lactamase producing organism. He is on day 9 of ertapenem. He needs to finish 14 days. He does not have a home, stays at [facility]. 2. Diabetes mellitus type 2. Sugar well controlled. Actually, sugars have been a little low so I am going to adjust his insulin down a little bit. 3. Bilateral hydroureteronephrosis. He has an atonic bladder from benign prostatic hypertrophy and so has to continue to have his Garcia catheter in. He was self-catheterizing. He will follow up with urology. 4. Acute kidney injury on top of chronic kidney injury. This is resolved. 5. Hypertension. 6. Iron deficiency anemia. 7. Constipation. Continue present orders. I do not see any change. cc: Christ Lay MD
[2019-01-10] MEDS: 1/2 NS 1,000 ML IV SCH (14:00)
--- NOTE | 2019-01-10 18:05 | INFECTIOUS DISEASE PROGRESS NO ---
DATE: 01/10/2019 PRESENT ILLNESS: The patient has an extended spectrum beta lactamase producing E. coli urinary tract infection. MEDICATIONS: This is day 10 of treatment with ertapenem. PHYSICAL EXAMINATION: Vital Signs: Temperature is 98.1 degrees, pulse 64, respirations 16, blood pressure 171/81. General: This is a fairly healthy-appearing, middle-aged male. He is in no acute distress. Head, eyes, ears, nose, and throat: He can hear my spoken words and see near objects. He does not have any white patches in his mouth. Neck: No meningismus. Lungs: Clear to auscultation. Cardiovascular: Heart rate is regular. Abdomen and flanks: Soft and nontender. Extremities: The patient's IV site is not erythematous or tender. Neurologic: The patient is alert. He is able to ambulate. There is no tremor. LAB AND X-RAY: There is no new lab or x-ray for today. ASSESSMENT AND PLAN: Patient has an extended spectrum beta lactamase producing Escherichia coli urinary tract infection. He is had 10 days of treatment and will require 4 more days. For tomorrow I have ordered a CBC and a BMP. COMORBIDITIES: The patient has neurogenic bladder and has to self catheterize himself to keep his bladder emptied. The patient also has benign prostatic hypertrophy, diabetes mellitus, gastroesophageal reflux disease, and chronic kidney disease. cc: Cirilo Mercado MD
[2019-01-11] MEDS: HUMULIN R SUBQ SCH ×5 (00:51→21:21)
[2019-01-11] MEDS: HEPARIN SUBQ SCH ×3 (00:51→21:21)
[2019-01-11] MEDS: COLACE PO SCH ×3 (00:51→21:21)
[2019-01-11] MEDS: LACTULOSE PO SCH ×3 (00:51→21:22)
[2019-01-11] MEDS: SENOKOT PO SCH ×3 (00:52→21:22)
[2019-01-11] MEDS: NEXIUM PO SCH (06:14)
[2019-01-11] MEDS: INVANZ 1 GM/NS 1 GM/50 ML IVPB IV SCH (06:14)
[2019-01-11 07:22] LABS: BASO# 0.02 X1000 (0.0-0.2); BASO% 0.4 % (0.0-0.8); EOS# 0.25 X1000 (0.0-0.7); EOS% 5.3 % (0.0-10.0); HEMATOCRIT 28.2 % (42.0-52.0); HEMOGLOBIN 8.6 g/dL (14.0-18.0); LYMPH% 10.5 % (20.5-51.1); MCH 24.4 PG (27-31); MCHC 30.5 g/dL (33-37); MCV 79.9 FL (81-99); MONO# 0.28 X1000 (0.11-0.59); MONO% 5.9 % (1.7-9.3); MPV 9.4 FL (7.4-10.4); NEUT% 77.9 % (42.2-75.2); PLT 266 X1000 (130-400); RBC 3.53 XMIL (4.7-6.1); RDW 18.3 % (11.5-14.5); WBC 4.75 X1000 (4.8-10.8)
[2019-01-11 07:38] LABS: ALBUMIN 3.3 g/dL (3.5-5.0); CALCIUM 8.7 mg/dL (8.8-10.2); CREATININE 1.5 mg/dL (0.7-1.2); MAGNESIUM 1.9 mg/dL (1.5-2.7); PHOSPHORUS 3.9 mg/dL (2.7-4.5); POTASSIUM 4.2 mmol/L (3.5-5.1)
[2019-01-11] MEDS: FOLIC ACID PO SCH (11:17)
[2019-01-11] MEDS: LOPRESSOR PO SCH ×2 (11:17→21:20)
[2019-01-11] MEDS: HUMULIN 70/30 SUBQ SCH ×2 (11:18→21:57)
[2019-01-11] MEDS: ASPIRIN EC PO SCH (11:18)
[2019-01-11] MEDS: DULCOLAX PR SCH (11:19)
--- NOTE | 2019-01-11 19:16 | PROGRESS NOTE ---
DATE: 01/11/2019 SUBJECTIVE: The patient is resting comfortably in bed. No acute events noted overnight. OBJECTIVE: Vital Signs: Temperature 98.4 degrees, blood pressure 97/66, heart rate 64, respirations 18, O2 saturation is 99% on room air. General: This is an elderly male, lying in bed in no acute distress. Heart: S1, S2 normal. Regular rate and rhythm. Lungs: Equal air entry bilaterally. No wheezing. No rales. No rhonchi. Abdomen: Positive bowel sounds. Soft, nontender, nondistended. Extremities: No edema. No cyanosis. Neurologic: The patient is alert and oriented x3. LABORATORY: Hemoglobin 8.6, hematocrit 28. BUN 37, creatinine 1.5, glucose 147, magnesium 1.9. ASSESSMENT AND PLAN: 1. Urinary tract infection secondary to extended-spectrum beta lactamase Escherichia coli. Today is day 11 of treatment with Invanz. 2. Poorly controlled insulin-dependent diabetes mellitus. The patient was hypoglycemic early this morning. We will decrease the 70/30 evening dosage. 3. Bilateral hydroureteronephrosis with a thickened bladder. Aware. The patient has been seen by Dr. Auguste. 4. Chronic kidney disease stage 3. Stable. 5. Iron deficiency anemia. Continue on Icar-C. The patient will likely need an EGD and colonoscopy as outpatient. 6. Disposition. Once the patient completes 14 days of antibiotic therapy, he will be discharged. cc: Nina Damian MD
[2019-01-12] MEDS: HUMULIN R SUBQ SCH ×4 (06:13→21:24)
[2019-01-12] MEDS: INVANZ 1 GM/NS 1 GM/50 ML IVPB IV SCH (06:14)
[2019-01-12] MEDS: NEXIUM PO SCH (06:19)
[2019-01-12 08:30] LABS: ALBUMIN 3.6 g/dL (3.5-5.0); CALCIUM 8.8 mg/dL (8.8-10.2); CREATININE 1.7 mg/dL (0.7-1.2); PHOSPHORUS 3.3 mg/dL (2.7-4.5); POTASSIUM 4.5 mmol/L (3.5-5.1)
[2019-01-12] MEDS: NS 1,000 ML IV SCH ×3 (09:40→19:29)
[2019-01-12] MEDS: ASPIRIN EC PO SCH (09:59)
[2019-01-12] MEDS: FOLIC ACID PO SCH (09:59)
[2019-01-12] MEDS: HUMULIN 70/30 SUBQ SCH ×2 (09:59→21:30)
[2019-01-12] MEDS: LOPRESSOR PO SCH ×2 (09:59→21:18)
[2019-01-12] MEDS: COLACE PO SCH ×2 (10:00→21:20)
[2019-01-12] MEDS: DULCOLAX PR SCH (10:00)
[2019-01-12] MEDS: HEPARIN SUBQ SCH ×2 (10:00→21:21)
[2019-01-12] MEDS: SENOKOT PO SCH ×2 (10:01→21:25)
[2019-01-12] MEDS: LACTULOSE PO SCH ×2 (10:01→21:25)
--- NOTE | 2019-01-12 13:54 | INFECTIOUS DISEASE PROGRESS NO ---
DATE: 01/12/2019 The patient will be finished with his ertapenem treatment of his urinary tract infection on January 14. The patient gets his dose each morning around 6:30 a.m. I put to discontinue the antibiotic after that time. I am signing off the patient's case now, but I am available to see the patient on a p.r.n. basis. cc: Cirilo Mercado MD
[2019-01-12] MEDS ORDERED: INSULIN PEN NEEDLES ONE (21:03)
[2019-01-13] MEDS: HUMULIN R SUBQ SCH ×5 (00:16→22:32)
[2019-01-13] MEDS: NS 1,000 ML IV SCH ×2 (04:33→17:30)
[2019-01-13] MEDS: NEXIUM PO SCH (06:07)
[2019-01-13] MEDS: INVANZ 1 GM/NS 1 GM/50 ML IVPB IV SCH (06:07)
[2019-01-13] MEDS: LACTULOSE PO SCH ×2 (09:22→22:36)
[2019-01-13] MEDS: SENOKOT PO SCH ×2 (09:22→22:37)
[2019-01-13] MEDS: COLACE PO SCH ×2 (09:22→22:36)
[2019-01-13] MEDS: DULCOLAX PR SCH (09:22)
[2019-01-13] MEDS: FOLIC ACID PO SCH (09:23)
[2019-01-13] MEDS: LOPRESSOR PO SCH ×2 (09:23→22:39)
[2019-01-13] MEDS: HEPARIN SUBQ SCH ×2 (09:23→22:36)
[2019-01-13] MEDS: ASPIRIN EC PO SCH (09:23)
[2019-01-13] MEDS: HUMULIN 70/30 SUBQ SCH ×2 (09:59→22:35)
[2019-01-13 11:14] LABS: CALCIUM 8.9 mg/dL (8.8-10.2); CREATININE 1.8 mg/dL (0.7-1.2); POTASSIUM 4.6 mmol/L (3.5-5.1)
[2019-01-13 14:58] LABS: URINE SOURCE CATH
[2019-01-13 15:11] LABS: BILIRUBIN URINE NEGATIVE (NEGATIVE); BLOOD URINE LARGE (NEGATIVE); COLOR ORANGE; GLUCOSE URINE NEGATIVE (NEGATIVE); KETONE URINE NEGATIVE (NEGATIVE); LEUKOCYTES URINE LARGE (NEGATIVE); NITRITE URINE NEGATIVE (NEGATIVE); PROTEIN URINE 200 mg/dL (NEGATIVE); SP GRAVITY URINE 1.012; TURBIDITY URINE TURBID (CLEAR); UROBILINOGEN URINE NORMAL (NORMAL)
[2019-01-13 15:15] LABS: UR EPITHELIAL CELLS >10 /HPF (<10); URINE BACTERIA NEGATIVE /HPF; URINE RBC TNTC /HPF (<10); URINE WBC TNTC /HPF (<10)
[2019-01-13 15:26] LABS: UR CREAT RANDOM 51.5 mg/dL (14-26)
[2019-01-13 15:34] LABS: URINE CASTS NONE SEEN; URINE YEAST NONE SEEN
--- NOTE | 2019-01-13 16:49 | PROGRESS NOTE ---
DATE: 01/13/2019 SUBJECTIVE: The patient is resting comfortably in bed. He has no complaints at this time. No acute events noted overnight. OBJECTIVE: Vital Signs: Temperature 97.3 degrees, blood pressure 107/70, heart rate 71, respirations 20, O2 saturation 98% on room air. Intake:1.8 L, output: 3.6 L General: This is a chronically ill-appearing elderly male, lying in bed in no acute distress. Heart: S1, S2 normal. Regular rate and rhythm. Lungs: Clear to auscultation bilaterally. Abdomen: Positive bowel sounds. Soft, nontender,nondistended. Extremities: No edema, no cyanosis. Neurologic: The patient is alert and oriented x 4 LABS: Sodium 139, potassium 4.6, chloride 106, CO2 20. BUN 48, creatinine 1.8, glucose 236. ASSESSMENT AND PLAN: 1. Urinary tract infection secondary to extended spectrum beta lactamase Escherichia coli. Today is day 13 of treatment with Invanz. The patient will complete the treatment tomorrow. 2. Acute kidney injury on chronic kidney disease. The patient's creatinine is slowly rising. He is currently on intravenous fluids and he has a Garcia catheter in place. His urine output is adequate. We will check urine studies and consult with Nephrology. 3. Bilateral hydroureteronephrosis with a thickened bladder. The patient currently has a Garcia catheter in place. Dr. Auguste has seen the patient and plans to tentatively do a cystoscopy as outpatient. The patient normally intermittently self catheterizes himself at home. 4. Iron deficiency anemia. Continue on Icar C. 5. Poorly controlled insulin-dependent diabetes mellitus. We will increase the Humulin 70/30 to 40 units every morning. 6. DKA. Resolved. 7. Deep vein thrombosis prophylaxis. Continue on heparin. cc: Nina Damian MD MTDD
[2019-01-14] MEDS: INVANZ 1 GM/NS 1 GM/50 ML IVPB IV SCH (05:51)
[2019-01-14] MEDS: NS 1,000 ML IV SCH (05:51)
[2019-01-14] MEDS: NEXIUM PO SCH (05:59)
[2019-01-14] MEDS: HUMULIN R SUBQ SCH ×2 (05:59→12:30)
[2019-01-14] MEDS ORDERED: INSULIN PEN NEEDLES ONE ×2 (07:08→14:50)
[2019-01-14 08:18] LABS: HEMOGLOBIN 9.4 g/dL (14.0-18.0); RBC 3.87 XMIL (4.7-6.1); WBC 3.83 X1000 (4.8-10.8)
[2019-01-14 08:19] LABS: HEMATOCRIT 31.1 % (42.0-52.0); MCH 24.3 PG (27-31); MCHC 30.2 g/dL (33-37); MCV 80.4 FL (81-99); MPV 9.9 FL (7.4-10.4); RDW 17.8 % (11.5-14.5)
[2019-01-14 08:40] LABS: CALCIUM 9.2 mg/dL (8.8-10.2); CREATININE 1.3 mg/dL (0.7-1.2); POTASSIUM 4.1 mmol/L (3.5-5.1)
[2019-01-14] MEDS: LOPRESSOR PO SCH (09:12)
[2019-01-14] MEDS: ASPIRIN EC PO SCH (09:12)
[2019-01-14] MEDS: FOLIC ACID PO SCH (09:12)
[2019-01-14] MEDS: HUMULIN 70/30 SUBQ SCH (09:13)
[2019-01-14] MEDS: HEPARIN SUBQ SCH (09:18)
[2019-01-14] MEDS: DULCOLAX PR SCH (09:18)
[2019-01-14] MEDS: COLACE PO SCH (09:18)
[2019-01-14] MEDS: LACTULOSE PO SCH (09:19)
[2019-01-14] MEDS: SENOKOT PO SCH (09:19)
[2019-01-14 15:40] VITALS: BP 113/72
--- NOTE | 2019-01-14 19:31 | NEPHROLOGY CONSULTATION ---
DATE: 01/14/2019 REASON FOR CONSULTATION: Acute kidney injury. HISTORY OF PRESENT ILLNESS: Mr. Santana is a 53-year-old man with diabetes and neurogenic bladder. He was admitted with urosepsis and bilateral hydronephrosis with bladder distention. He has been treated with Garcia catheter with overall improvement. His creatinine decreased from 2.3 on presentation to 1.3 on the . I was consulted because his creatinine jann again to 1.8. 1.3 today. He states he is feeling well and would like to go home so he can resume work. PAST MEDICAL HISTORY: As above. Medications, allergies, social, family, review of systems all reviewed and noncontributory. PHYSICAL EXAMINATION: Vital Signs: Blood pressure 113/72, heart rate 102, respirations 20, afebrile. General: No acute distress. Skin: Warm and dry. Conjunctivae are pink. Neck: Neck veins are not distended. Heart: Regular. No gallops. Lungs: Equal. No crackles. Abdomen: Soft, nontender. Bowel sounds are present. Extremities: Have no edema, clubbing or cyanosis. IMPRESSION: Acute kidney injury secondary to obstructive uropathy. Slow improvement but progressive. I discussed the case directly with Dr. Mercado and Molina. Antibiotics will be completed today. Dr. Auguste has worked with the patient regarding his need for ongoing self- catheterization but the patient has been resistant. Nothing further to add. cc: Shahram King MD
--- NOTE | 2019-01-16 09:42 | DISCHARGE SUMMARY ---
ADMISSION DATE: 12/30/2018 DISCHARGE DATE: 01/14/2019 DISCHARGE DIAGNOSES: 1. Diabetic ketoacidosis, resolved. 2. ESBL positive Escherichia coli urinary tract infection. 3. Acute kidney injury on chronic kidney disease secondary to outlet obstruction, resolved. 4. Bilateral hydroureteronephrosis with a thickened bladder secondary to neurogenic bladder with urinary retention and noncompliance with the patient and clean intermittent catheterization. This was resolved with Garcia catheter in place. 5. Iron deficiency anemia. 6. Poorly controlled insulin-dependent diabetes mellitus. 7. Chronic kidney disease stage 3. CONSULTATIONS: 1. Dr. Cirilo Mercado, Infectious Disease. 2. Dr. Shahram King, Nephrology. 3. Molina García, Urology. DIAGNOSTICS: 1. 12/30/2018, CT of the abdomen and pelvis revealed worsening diffuse urinary bladder wall thickening and inflammation compatible with chronic cystitis, mucosal irregularity of the posterior wall bladder, malignancy is suspected, bilateral hydroureteronephrosis, severe distention of the stomach compatible with gastroparesis. 2. 12/31/2018, chest x-ray revealed low lung volumes. Lungs are clear. Heart size is normal. No pneumothorax or effusions seen. 3. 01/03/2019, renal ultrasound. Dilated left renal collecting system of unknown acuity, nondistended urinary bladder with a Garcia catheter in place, but there is suggestion of urinary bladder wall thickening which could indicate cystitis. 4. Microbiology: Urine culture 12/30/2018 revealed ESBL positive Escherichia coli UTI. 5. Urine culture 01/03/2019 revealed no growth. 6. Urine culture 01/13/2019 revealed yeast. HOSPITAL COURSE: Mr. Santana presented to the emergency room complaining of painful urination. He was found to be in urinary retention secondary with bilateral hydroureteronephrosis secondary to neurogenic bladder. Bladder was decompressed. Dr. Auguste of Urology was consulted. CT scan did note an abnormality of the bladder mucosa. Prior biopsy returned benign. He does follow with Dr. Auguste on an outpatient basis for this as well as his neurogenic bladder. Garcia catheter was discontinued on the day of discharge. He was instructed to restart clean intermittent catherization q.6.hours as previously instructed by Dr Auguste. He was found to have an ESBL positive E coli UTI for which he received 14 days of Invanz IV. As the patient lives in the [facility], he was unable to receive outpatient IV medications. He was hospitalized for 14 days to assure he completed his treatment. He carries a history of chronic kidney disease stage 3. Creatnine peaked at 2.3 and decreased to 1.3 by discharge. During the hospitalization, he was evaluated by Dr. King who felt that this acute kidney injury was secondary to obstructive uropathy. He did in the light of the patient being followed by Dr. Auguste for self catheterization, at this time he had nothing further to add. He does have poorly controlled insulin-dependent diabetes mellitus secondary to noncompliance with diet and medication. Humulin 70/30 was dosed at 15 units at bedtime and 40 units every morning. Social Work did get the patient 70/30 insulin for free from [facility] through the [employer] program. He was also instructed that he could purchase RelyON brand insulin as well as meter and supplies over the counter at [facility]. In regards to his iron deficiency anemia, he was given Icar C, and he was instructed that further workup could be arranged per Jocelyn Hoffman, his primary care provider. He did have difficulty with constipation which improved after bowel regimen. DISCHARGE VITAL SIGNS: Blood pressure is 113/72 with a heart rate of 64, respirations 20, temperature 98.5 degrees with room air saturations 95 to 98%. DISCHARGE PHYSICAL EXAMINATION: Cardiovascular: Regular rate and rhythm. S1, S2 appreciated. Extremities: Calves are nontender bilateral. He has no lower extremity edema. Pulmonary: Breath sounds clear with no increased work of breathing noted. Chest rises and falls symmetric with respiration. Gastrointestinal: Abdomen is soft, nontender, nondistended with bowel sounds in all 4 quadrants. Neurologic: He is alert and oriented x4. DISCHARGE MEDICATIONS: 1. Senokot 1 p.o. b.i.d. 2. Nexium 40 mg p.o. daily. 3. Humulin 70/30, 15 units subcutaneous at bedtime. 4. Humulin 70/30, 40 units subcutaneous in the morning. 5. Folic acid 1 mg p.o. daily. 6. Metoprolol tartrate 25 mg p.o. b.i.d. 7. Aspirin 81 mg p.o. daily. FOLLOW-UP: 1. MONIE Salguero, 01/20/[address] at [address] Kulwinder Auguste, 01/21/2019 at 10:30. INSTRUCTIONS: He has been instructed to return to the emergency room or call to be seen sooner for any syncope, dizziness, chest pain, palpitations, shortness of breath, cough, fever, chills, temperature greater than 101, any nausea, vomiting, diarrhea, constipation, black or bloody vomitus or stools, for any hematuria, any difficulty catheterizing himself or for any questions or concerns that he may have. He is being discharged home in stable condition with family members. TIME SPENT: This is a greater than 30 minute discharge. Dictated by MONIE Ortez for Nick Solo MD Addendum: Patient seen and examined by myself. Agree with CNRP note. It reflects my assessment and plan. Patient is being discharged in stable condition. Will be seen by Urology as scheduled. cc: MONIE Ortez MD Amanda K. Anderson, CRNP MTDD
== END 2019-01-14 16:23 | disposition home or self-care (01) | DRG 638 ==
LOC: ED 05:37 → SUATTDRO 09:12 → ICU 09:12 → 3N 12-31 12:10
PROVIDERS: ATTEND Internal Medicine